=== PATIENT | female | born 1965 | race Caucasian/White ===

== ENCOUNTER → 2023-07-20 14:20 | Outpatient (BNVA) | payer MEDICARE, MEDICAID, SELFPAY | PROVIDERS: PCP Nurse Practitioner; Visit Provider Nurse Practitioner | DX: M54.9 Dorsalgia, unspecified (principal); G89.29 Other chronic pain; E27.1 Primary adrenocortical insufficiency; E11.9 Type 2 diabetes mellitus without complications; R10.9 Unspecified abdominal pain | CPT/HCPCS: 80053; 80061; 82150; 83036; 83690; 83721; 85025 ==

== ENCOUNTER → 2023-08-05 14:53 | Outpatient (BNVA) | payer MEDICARE, MEDICAID, SELFPAY | PROVIDERS: PCP Nurse Practitioner; Referring Provider Family Medicine; Visit Provider Specialist | DX: G43.711 Chronic migraine without aura, intractable, with status migrainosus (principal) | CPT/HCPCS: 99204 ==

== ENCOUNTER 2023-08-06 10:09 | Outpatient (CLI) | payer MEDICARE, MEDICAID, SELFPAY ==
--- NOTE | 2023-08-06 10:45 | US_ITS ---
WS: [id number] Complete ABDOMINAL ULTRASOUND HISTORY: R10.9 - Unspecified abdominal pain COMPARISON: None available. Liver: 13.7 cm in length. Normal liver with mild hepatic steatosis. No mass. Portal Vein: Normal hepatopetal flow with monophasic waveform. Gallbladder: Status post cholecystectomy. CBD: 0.8 cm Pancreas: Normal size and echogenicity. Right kidney: 10.3 cm x 5.2 x 4.8 cm. Cortex: 1.0 cm. Normal size and echogenicity. No hydronephrosis or mass. Left kidney: 11.4 cm x 4.1 cm x 4.2 cm. Cortex: 1.1 cm. Normal size and echogenicity. No hydronephrosis or mass. Spleen: Normal. Aorta and IVC: Unremarkable abdominal aorta and IVC. Impression: 1. Prior cholecystectomy. 2. Mild hepatic steatosis without hepatomegaly. 3. No bile duct dilatation.
== END 2023-08-06 10:10 | disposition home or self-care (01) ==
LOC: RAD 10:10
PROVIDERS: PCP Nurse Practitioner; Visit Provider Nurse Practitioner
DX: R10.9 Unspecified abdominal pain (principal); K76.0 Fatty (change of) liver, not elsewhere classified
CPT/HCPCS: 76700

== ENCOUNTER → 2023-08-17 13:33 | Outpatient (BNVA) | payer MEDICARE, MEDICAID, SELFPAY | PROVIDERS: PCP Nurse Practitioner; Visit Provider Nurse Practitioner | DX: R06.00 Dyspnea, unspecified (principal); E11.9 Type 2 diabetes mellitus without complications; K76.6 Portal hypertension; M79.671 Pain in right foot; J44.9 Chronic obstructive pulmonary disease, unspecified | CPT/HCPCS: 71046; 73630 ==

== ENCOUNTER → 2023-10-21 08:00 | Outpatient (BNVA) | payer MEDICARE, MEDICAID, SELFPAY | PROVIDERS: PCP Nurse Practitioner; Visit Provider Specialist | DX: G43.711 Chronic migraine without aura, intractable, with status migrainosus (principal) | CPT/HCPCS: 64615 ==

== ENCOUNTER → 2023-10-25 11:43 | Outpatient (BNVA) | payer MEDICARE, MEDICAID, SELFPAY | PROVIDERS: PCP Nurse Practitioner; Visit Provider Nurse Practitioner | DX: R55 Syncope and collapse (principal); E27.1 Primary adrenocortical insufficiency; R07.81 Pleurodynia; M25.551 Pain in right hip; M54.6 Pain in thoracic spine; M54.2 Cervicalgia; E11.9 Type 2 diabetes mellitus without complications | CPT/HCPCS: 83036 ==

== ENCOUNTER → 2023-10-27 11:08 | Outpatient (BNVA) | payer OTHER, MEDICAID, SELFPAY | PROVIDERS: PCP Nurse Practitioner; Referring Provider Nurse Practitioner; Visit Provider Nurse Practitioner | DX: S22.31XA Fracture of one rib, right side, initial encounter for closed fracture (principal); W19.XXXA Unspecified fall, initial encounter; M47.892 Other spondylosis, cervical region; R07.81 Pleurodynia; M25.551 Pain in right hip; M54.2 Cervicalgia | CPT/HCPCS: 71100; 72040; 72070; 73502 ==

== ENCOUNTER → 2023-10-28 10:49 | Outpatient (BNVA) | payer OTHER, MEDICAID, SELFPAY | PROVIDERS: PCP Nurse Practitioner; Visit Provider Internal Medicine | DX: E03.9 Hypothyroidism, unspecified (principal); E10.9 Type 1 diabetes mellitus without complications; E27.40 Unspecified adrenocortical insufficiency; Z79.4 Long term (current) use of insulin; Z79.890 Hormone replacement therapy; Z79.85 Long-term (current) use of injectable non-insulin antidiabetic drugs; R06.02 Shortness of breath; J45.909 Unspecified asthma, uncomplicated | CPT/HCPCS: 99204 ==

== ENCOUNTER → 2023-11-02 11:50 | Outpatient (BNVA) | payer OTHER, MEDICAID, SELFPAY | PROVIDERS: PCP Nurse Practitioner; Referring Provider Nurse Practitioner; Visit Provider Nurse Practitioner | DX: E10.9 Type 1 diabetes mellitus without complications (principal) | CPT/HCPCS: 83036 ==

== ENCOUNTER 2023-11-12 10:16 | Outpatient (CLI) | payer MEDICARE, MEDICAID, SELFPAY ==
--- NOTE | 2023-11-12 10:30 | CT_ITS ---
WS: [id number] CT HEAD NONCONTRAST HISTORY: S09.90XA - Unspecified injury of head, initial encounter TECHNIQUE: Contiguous axial imaging performed through the brain in 2.5 mm imaging. Bone and soft tiss ue windows. Sagittal and coronal reformats reviewed. All CT scans at [facility] use at least one of these dose optimization techniques: automated exposure control; mA and/or kV adjustment per pa tient size (includes targeted exams where dose is matched to clinical indication); or iterative recon struction. DLP: 1058.38 mGy.cm COMPARISON: None available. No acute intracranial hemorrhage, midline shift or mass effect. Very minimal bifrontal atrophy. Scattered minimal small vessel ischemic disease. No prior infarcts. N o hemorrhage. Ventricles: Normal size with no hydrocephalus. No intra displacement the cerebellar tonsils. Paranasal sinuses: Mild mucoperiosteal thickening in the ethmoid and maxillary sinuses. No air-fluid levels. Mastoid air cells: Well pneumatized. Calvarium and scalp: Skull is intact with no soft tissue edema or swelling. IMPRESSION: 1. No acute intracranial hemorrhage or edema. 2. Minimal bifrontal lobe atrophy and small vessel ischemic disease. 3. Mild ethmoid and maxillary sinus disease.
== END 2023-11-12 10:17 | disposition home or self-care (01) ==
LOC: RAD 10:16
PROVIDERS: PCP Nurse Practitioner; Visit Provider Nurse Practitioner
DX: S09.90XA Unspecified injury of head, initial encounter (principal); X58.XXXA Exposure to other specified factors, initial encounter; J32.2 Chronic ethmoidal sinusitis; J32.0 Chronic maxillary sinusitis
CPT/HCPCS: 70450

== ENCOUNTER 2023-12-03 14:15 | Outpatient (CLI) | payer MEDICARE, MEDICAID, SELFPAY ==
--- NOTE | 2023-12-03 14:30 | XR_ITS ---
WS: [id number] DEXA (DUAL ENERGY X-RAY ABSORPTIOMETRY) Bone mineral density was performed using a [employer] machine. HISTORY: E10.9 - Type 1 diabetes mellitus without complications COMPARISON: None available. Left forearm BMD: 0.870 g/cm2. T score: -0.1 Z score: 0.5 RIGHT forearm BMD: 0.870 g/cm2. T score: -0.1 Z score: 0.5 Total hip BMD: Left: 0.999 (g/cm2). T score: -0.1 (no units) Z score: 0.6 (no units) 10 year probability of a major osteoporotic fracture is 15.5%. IMPRESSION: NORMAL BONE MINERAL DENSITY based upon the WHO classification for females.
== END 2023-12-03 14:16 | disposition home or self-care (01) ==
LOC: RAD 14:15
PROVIDERS: PCP Nurse Practitioner; Visit Provider Nurse Practitioner
DX: E10.9 Type 1 diabetes mellitus without complications (principal); Z13.820 Encounter for screening for osteoporosis
CPT/HCPCS: 77080

== ENCOUNTER → 2023-12-09 12:42 | Outpatient (BNVA) | payer MEDICARE, MEDICAID, SELFPAY | PROVIDERS: PCP Nurse Practitioner; Visit Provider Orthopaedic Surgery | DX: M54.2 Cervicalgia (principal); M54.50 Low back pain, unspecified; M47.22 Other spondylosis with radiculopathy, cervical region | CPT/HCPCS: 72050; 72110; 99204 ==

== ENCOUNTER 2023-12-24 11:53 | Outpatient (CLI) | payer MEDICARE, MEDICAID, SELFPAY ==
--- NOTE | 2023-12-24 12:00 | CT_ITS ---
WS: [id number] CT RIGHT HIP, NONCONTRAST. HISTORY: M25.551 - Pain in right hip Technique: All CT scans at [facility] use at least one of these dose optimization techniques: automated exposure control; mA and/or kV adjustment per patient size (includes targeted exams where dose is matched to clinical indication); or iterative reconstruction. DLP: 333.77 mGy.cm COMPARISON: None available. Fusion hardware across the RIGHT SI joint. The more posterior screw may not be embedded within the sa susi. There is no acute fracture or dislocation. No soft tissue abnormality or hematoma. No muscle atrophy. No sclerotic changes to suggest a healing fracture. There is mild osteophytic ridging around the norma tabulum and femoral head from arthritis. IMPRESSION: 1. Mild osteoarthritis at the RIGHT hip. 2. No fracture or healed fracture.
== END 2023-12-24 11:54 | disposition home or self-care (01) ==
LOC: RAD 11:54
PROVIDERS: PCP Nurse Practitioner; Visit Provider Nurse Practitioner
DX: M16.11 Unilateral primary osteoarthritis, right hip (principal); M25.551 Pain in right hip
CPT/HCPCS: 73700

== ENCOUNTER → 2023-12-27 09:54 | Outpatient (BNVA) | payer MEDICARE, MEDICAID, SELFPAY | PROVIDERS: PCP Nurse Practitioner; Visit Provider Nurse Practitioner | DX: E03.9 Hypothyroidism, unspecified (principal) | CPT/HCPCS: 84244; 84439; 84443; 99214 ==

== ENCOUNTER 2024-01-07 11:31 | Outpatient (CLI) | payer MEDICARE, MEDICAID, SELFPAY ==
--- NOTE | 2024-01-07 12:15 | MR_ITS ---
WS: [email or web address] MRI CERVICAL SPINE NONCONTRAST TECHNIQUE: Sagittal T1, T2 and STIR imaging. Axial T2, gradient, and fiesta imaging. CLINICAL INFORMATION: cervical pain COMPARISON: None. FINDINGS: Straightening of the normal cervical lordosis. Disc bulging worse at C5-C6 and C6-C7. Cord signal is normal. C2-C3: Normal. C3-C4: Minimal disc bulging. Moderate facet arthropathy. Spinal canal and foramen are patent. C4-C5: Disc osteophytic ridging. Moderate LEFT and no significant RIGHT foraminal narrowing. Spinal c anal is patent. C5-C6: Central disc osteophyte protrusion with mild central canal stenosis. Moderate bilateral bony f oraminal narrowing. Moderate facet arthropathy. C6-C7: Shallow central disc protrusion. Slight contact of the cervical cord. Mild central canal steno sis. Mild to moderate bilateral bony foraminal narrowing. Mild facet arthropathy. C7-T1: RIGHT paracentral disc protrusion with slight contact of the cervical cord. Spinal canal is pa tent. Foramen are patent. Visualized brain stem structures: Normal. Prevertebral soft tissues: Normal. IMPRESSION: 1. Straightening of the normal cervical lordosis. Cord signal is normal. 2. Mild central canal stenosis C5-C6 and C6-C7 with small disc protrusions and slight contact of the cervical cord. 3. Multilevel moderate bony foraminal narrowing worse at LEFT C4-5, bilateral C5-C6 worse on the RIG HT, and bilateral C6-7. 4. Moderate asymmetric facet arthropathy RIGHT C3-4.
--- NOTE | 2024-01-07 13:00 | MR_ITS ---
WS: [email or web address] MRI LUMBAR SPINE NONCONTRAST TECHNIQUE: Sagittal T1, T2 and STIR imaging. Axial T1 and T2 imaging. CLINICAL INFORMATION: back pain COMPARISON: None. FINDINGS: Mild lumbar curve. No acute compression. Prior postoperative changes L3-L5 pedicle screw fixation wit h interbody fusion. Additional interbody fusion at L4-L5 and L5-S1. Anterior fixation at L2-3. RIGHT iliac fixation. L1-L2: Mild annular bulging. Mild facet arthropathy. Mild RIGHT foraminal narrowing. L2-L3: Postoperative changes. Spinal canal and foramen are patent. Mild facet arthropathy. L3-L4: Postoperative changes. Mild RIGHT bony foraminal narrowing. LEFT foramen is patent. Spinal can al is patent with laminectomy defects. L4-L5: Interbody fusion. Spinal canal has been decompressed. Foramina are patent. L5-S1: Interbody fusion. Spinal canal and foramen are patent. Laminectomy defects. Visualized pelvic bony structures: Normal. Paravertebral soft tissues: Normal. IMPRESSION: 1. Postoperative changes described above. 2. Mild annular bulging L1-2 with slight narrowing of the subarticular recess bilaterally. Mild RIGH T foraminal narrowing at this level. 3. Mild RIGHT L3-4 bony foraminal narrowing. 4. Spinal canal and foramen are otherwise patent. 5. Laminectomy defects L3-L5. 6. RIGHT sacroiliac fixation.
== END 2024-01-07 11:32 | disposition home or self-care (01) ==
LOC: RAD 11:31
PROVIDERS: PCP Nurse Practitioner; Visit Provider Orthopaedic Surgery
DX: M48.02 Spinal stenosis, cervical region (principal); M50.23 Other cervical disc displacement, cervicothoracic region; M47.812 Spondylosis without myelopathy or radiculopathy, cervical region
CPT/HCPCS: 72141; 72148

== ENCOUNTER → 2024-01-20 12:30 | Outpatient (BNVA) | payer MEDICARE, MEDICAID, SELFPAY | PROVIDERS: PCP Nurse Practitioner; Visit Provider Specialist | DX: G43.711 Chronic migraine without aura, intractable, with status migrainosus (principal); M54.9 Dorsalgia, unspecified; M48.062 Spinal stenosis, lumbar region with neurogenic claudication | CPT/HCPCS: 36415; 64615; 80053; 81001; 85025; 87077; 87086; 87186; 99214 ==

== ENCOUNTER → 2024-01-31 11:53 | Outpatient (BNVA) | payer OTHER, MEDICAID, SELFPAY | PROVIDERS: PCP Nurse Practitioner; Visit Provider Family Medicine | DX: Z01.818 Encounter for other preprocedural examination (principal); Z79.899 Other long term (current) drug therapy | CPT/HCPCS: 81003; 87077; 87086; 87184; 93005 ==

== ENCOUNTER 2024-02-23 15:53 | Inpatient (IN) | payer MEDICARE, MEDICAID, SELFPAY ==
[2024-02-23] VITALS (20 sets, daily range): BP systolic 85–132; BP diastolic 54–82; PULSE 71–100; RESP 14–23; TEMP 36.6–37.1; O2SAT 95–100
--- NOTE | 2024-02-23 | XR_ITS ---
WS: [id number] Exam: XR lumbar spine 2-3V* [id number] Date/Time of Exam: 02/23/2024 12:00 AM Reason For Exam: SAI PICS images of the lumbar spine in the AP and lateral projections are obtained for intraoperative purpose s.
[2024-02-23] MEDS: sodium chloride 0.9% 1,000 ML 30 ML IV (09:47)
--- NOTE | 2024-02-23 09:47 | PICC.NOTE ---
Referred to vascular access nurse for IV start due to history of poor access. 20 gauge IV started to left forearm using ultrasound guidance. Pt noted to have very small vessels. Unable to get lab draw from IV start. Site flushes without difficulty. IVF infusing without difficulty. Lab draw performed to left AC using butterfly and ultrasound guidance. Pt tolerated fair.
[2024-02-23 10:04] LABS: Glucose Point of Care 94 mg/dL (70-110)
[2024-02-23] MEDS: midazolam 1 mg/mL INJ 2 mL 2 MG IVP (10:47)
[2024-02-23] MEDS: hydrocortisone 100 mg/2 mL SDV IVP (11:12)
--- NOTE | 2024-02-23 11:16 | W.PM.OPSUD ---
Surgery/Procedure H&P Update DATE OF PROCEDURE: February 23, 2024 DATE H&P PERFORMED: 01/30/24 H&P UPDATE INFORMATION: I have reviewed H&P completed within last 30 days, I have examined patient prior to procedure and No changes to prior documentation PREOP DIAGNOSIS: Nonunion lumbar spine PLANNED PROCEDURE: Operation Date: 02/23/24 10:30 Proposed Procedures p Spinal Fusion(Not Applicable) - DO monty Benton Lumbopelvic Fixation(Not Applicable) - DO monty Benton Sacroiliac Joint Fusion SI Joint Fusion(Not Applicable) - DO monty Benton Lumbar Spine Decompression Lumbar Decompression(Not Applicable) - Munir Chan DO
[2024-02-23] MEDS: ceFAZolin 2,000 MG in sodium chloride 0.9% (plus) 50 ML 100 MG IV ×2 (11:24→17:53)
[2024-02-23] MEDS: vancomycin 1,000 MG SDV 1000 MG XX (12:24)
[2024-02-23] MEDS: lidocaine-epi 1% PF 1:200,000 30 mL SDV INJECTION (12:24)
[2024-02-23] MEDS: heparin, porcine 1,000 unit/mL INJ 10 mL 10000 UNIT IRRIGATION (12:25)
--- NOTE | 2024-02-23 15:12 | PM.OP ---
Operative Report Date of procedure: February 23, 2024 Pre-op diagnosis: Nonunion lumbar fusion Post-op diagnosis: same Procedure done: 1. L2- pelvis posterior fusion 2. L2-S1 instrumentation posterior 3. Lumbopelvic instrumentation fixation 4. Left open sacroiliac fusion 5. Use of computer navigation stereotactic 6. Bone marrow aspirate from right iliac crest through separate incision 7. Use of allograft 8. Revision spine surgery Surgeon: Munir Chan DO Estimated blood loss (mL): 200 Procedure: 1. L2- pelvis posterior fusion 2. L2-S1 instrumentation posterior 3. Lumbopelvic instrumentation fixation 4. Left open sacroiliac fusion 5. Use of computer navigation stereotactic 6. Bone marrow aspirate from right iliac crest through separate incision 7. Use of allograft 8. Revision spine surgery Patient is brought the operative suite after going anesthesia was placed in the prone position. Neuromonitoring was done throughout the entire case. Once in the prone position all areas impingement well-padded. Patient then prepped draped normal sterile fashion. Skin incision was made from L2 to the pelvis. Previous skin incision was used. Subperiosteal dissection was made out to the transverse processes of L2 to the sacral ala. Being careful from L3-S1 of previous laminectomy sites. Previous hardware was identified from L2-L4. The screw caps were removed as were the rods. Once dissection was made then the attention was brought to the bone marrow aspirate. This was done going through the fascia and a separate incision on the right iliac crest. The regenerative bone marrow aspiration kit was used and 10 cc of bone marrow aspirate were used. Next attention was brought to doing the computer navigation. This was done by point 2 pins in the right iliac crest. The fiducial was attached and the C-arm was brought in from the patient information from serum was loaded through the fiducial into the computer and later used to place the pedicle screws. Pedicle screws were then placed from L5-S1. This was done by using the gearshift probe linked to computer navigation. The next step is just using the pedicle feeler and then using the computer navigated screw screws were placed. This was done at L5 bilaterally (however the screw on the right could not get good purchase and was removed at the end the case) and on the bilaterally S1. Next attention was brought to placing the iliac screws. This was done by using the gearshift probe to go through the sacrum into the ala across the SI joint and into the iliac crest. This was done bilaterally. Gearshift probe linked. Navigation was used first followed by the pedicle feeler followed by the tap followed by placing the screw using the computer navigation. An 80mm 9.5 millimeter screws from Affymax was placed on the left side and a 70 mm screw was placed in the right side working around the previous SI joint fusion on the right side.. Next tension was brought to placing the right open SI joint fusion. This was done by visualizing the SI joint and passing the screw across the using the navigated gearshift probe. And then using pedicle feeler followed by placing a pin followed by using the drill. Then the bone graft was packed into the SI joint and then the SI joint fusion screw was placed across the sacrum ala and and across the SI joint into the iliac crest. This is only done on the left side since the left side was already fused. Next tension was brought to placing the rods. This was done from L2 to the iliac screw bilaterally. Screw caps were then placed at L2-S1 bilaterally. The right L4 screw Was stripped and we were able to place the cement down. And then attached to the iliac screws to complete the lumbopelvic fixation. AP lateral fluoroscopy ensured that the hardware was in good position. Wounds were irrigated. And then the transverse processes were decorticated bilaterally. Then the ostial amp bone graft was then packed into the lateral gutters bilaterally. Vancomycin powder was placed deep drain was placed and wound was closed in layered fashion with 0 Vicryl 2-0 Vicryl and Monocryl suture. Sterile dressings were applied patient transferred to the PACU in stable condition.
[2024-02-23] MEDS: HYDROmorphone 1 mg/mL INJ 1 mL 0.5 MG IVP (15:46)
--- OUTSIDE RECORDS SUMMARY | 2024-02-23 16:01 | XMS_ITS ---
Author Name Javon Hall Address [address] [place] [id number] Organization Unknown Address [address] [place] [id number] ALLERGIES AND ADVERSE REACTIONS No information ASSESSMENT No information CHIEF COMPLAINT No information Vital Signs Bpsitting Date Temperature Weight Height Spo2 Respiration Bmi Ti merecorded Pulse 124/83 023 10:20:0 0 98.00 168,0 5,9 97 18 24.81 10:27:00 100 OBJECTIVE DATA No information PHYSICAL EXAMINATION No information TREATMENT PLAN No information PROBLEMS No information RESULTS No information REVIEW OF SYSTEMS No information SUBJECTIVE DATA No information MEDICATIONS No information
--- OUTSIDE RECORDS SUMMARY | 2024-02-23 16:02 | XMS_ITS | Patient Health Record ---
Author Name Unknown Organization [facility] Address [address], [place] [id number] Care Team Providers Care Face Man Name Role Phone Neda Donis Primary Care Provider Unavailab rubi Renner MD, Jose David Unavailable [phone] Jeannie Rehman Unavailable [phone] ALLERGIES No Known Allergies RESULTS Component Value Reference Range Notes Urine tox screen / MS if ind icated Reviewed date:09/06/2023 10:09:43 AM Interpretation:Consistent Performing Lab: Notes/Report: Consistent REASON FOR REFERRAL Reason Chronic back pain Diagnosis 1 Dorsalgia, unspecifi ed (M54.9) Diagnosis 2 Other chronic pain ( G89.29) Referring Provider First Name Neda Referring Provider Last Name Licha Referring Provider Speciality Nurse Giuliana dollr Referred Organization [facility] Referred Provider Jose David Renner Referred Address [address] [place], [id number], Referred Provider Specialty Pain Managem ent General Notes Yocasta Hansen 11:28:03 AM >Sent for insurance verification., Yocasta Hansen 08/03/2023 01:52:40 PM >Subscriber not in service. Will mail letter tomorrow. Referral Priority Routine Reason Sleep Study (94330)/ CPAP Titration Study (20091) as appropriate Diagnosis 1 Hypersomnia, unspeci fied (G47.10) Referral Organization [facility] Referring Provider First Name Jose David Referring Provider Last Name Jud Referring Provider Speciality Pain Manag ement Referred Provider Lab, Sleep General Notes Diamond Kent 2023 11:11:25 AM > referral faxed, Diamond Kent 11/15/2023 11:43:20 AM > per D[facility] at [facility] Sleep Lab - patient is scheduled as above Referral Priority Routine Referral Appointment Date 01/26/2024 MEDICATIONS Medication SIG (Take, Route, Frequency, Duration) Notes Start Date End Date Status Naloxone Hydrochloride 4 mg/0.1 mL as directed intranasally once 11/25/2023 Active Morphine Sulfate 15 mg 1 tab orally Q4H prn pain (max 4/day; hold within 4H of planned sleep) for 28 days Do not fill prior to 01/26/24. ICD-10: G89.29 12/16/2023 Active nadolol 40 mg 1 tab(s) orally once a day for 30 day(s) Active spironolactone 25 mg 1 tab(s) orally onc e a day for 30 day(s) Active promethazine 25 mg 1 tab(s) orally ever y 12 hours, as needed Active [place]-3 1000 mg 2 cap(s) orally 2 times a day (with meals) Active montelukast 10 mg 1 tab(s) orally once a day for 30 day(s) Active hydrocortisone 10 mg 2 1/2 tab(s) orally as directed Active gabapentin 600 mg 1 tab orally Q8H Active Morphine Sulfate 15 mg 1 tab orally Q4H prn pain (max 4/day; hold within 4H of planned sleep) for 28 days Do not fill prior to 12/30/23. ICD-10: G89.29 12/16/2023 Active esomeprazole 40 mg 1 cap(s) orally once a day for 30 day(s) Active DULoxetine 60 mg 1 cap(s) orally once a day for 30 day(s) Active atorvastatin 40 mg 1 tab(s) orally once a day for 30 day(s) Active zolpidem 10 mg 1 tab(s) orally once a day (at bedtime) Active amLODIPine 5 mg 1 tab(s) orally once a day for 30 day(s) Active venlafaxine 75 mg 1 cap(s) orally once a day for 30 day(s) Active Movantik 25 mg 1 tab orally Q24H pr n constipation (1H before or 2H after first meal of day) for 28 days Active fenofibrate 54 mg 1 tab(s) orally once a day for 30 day(s) Active estradiol 1 mg 1 tab(s) orally once a day for 30 day(s) Active amitriptyline 50 mg 1 tab(s) orally once a day (at bedtime) for 30 day(s) Active topiramate 50 mg 1 tab(s) orally 2 times a day for 30 day(s) Active Advil PM 38 mg-200 mg 2 tab(s) orally on ce a day (at bedtime) Active tiZANidine 4 mg 1 tab orally Q8H prn spasm Active telmisartan 80 mg 1 tab(s) orally once a day for 30 day(s) Active Synthroid 50 mcg (0.05 mg) 1 tab(s) orally once a day for 30 day(s) Active SOCIAL HISTORY Tobacco Use: Social History Observation Description Date Details (start date - stop date) Never Smoker NA - NA Sex Assigned At : Social History Observation Description Sex Assigned At Unknown alcohol Question Answer Notes Did you have a drink containing alcohol in the p ast year? 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) Active confirmed High ris k drug monitoring status (738082470) Problem Hypersomnia, unspecified (G47.10) Active confirmed Hypersomnia (02678795) Problem Other chronic pain (G89.29) Active confirmed Chronic pain (52770644) Problem Dorsalgia, unspecified (M54.9) Active confirmed Backache (453760699) Problem Postlaminectomy syndrome, not elsewhere classified (M96.1) Active confirmed Post-lami nectom y syndrome (82379489) Problem Other retirement (current) drug therapy (Z79.899) Active confirmed Long-term current use of drug therapy (958334149) Problem Drug induced constipation (K59.03) Active confirmed Drug-induced constipation (41740530) Problem Vertebrogenic low back pain (M54.51) Active confirmed Low back pain (finding) (039569962) VITAL SIGNS Temperature 97.5 degrees Fahrenheit 12/16/2023 Blood pressure diastolic 84 mm Hg 12/16/2023 Oximetry 95 % 12/16/2023 Height 69 in 12/16/2023 Blood pressure systolic 112 mm Hg 12/16/2023 Weight 151.2 lbs 12/16/2023 BMI 22.33 kg/m2 12/16/2023 Encounters Encounter Location Date Provider Diagnosis [facility], [address] [id number] 09/06/2023 Jeannie Anderson Vertebrogenic low ba ck pain M54.51 ; Postlaminectomy syndrome, not elsewhere classified M96.1 ; Sacroiliitis, not elsewhere classified M46.1 ; Hypersomnia, unspecified G47.10 and 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 Z79.899 [facility], [address] [id number] 11/02/2023 Jose David Renner Vertebrogenic low ba ck pain M54.51 ; Other chronic pain G89.29 ; Postlaminectomy syndrome, not elsewhere classified M96.1 ; Hypersomnia, unspecified G47.10 and correction (current) use of opiate analgesic Z79.891 [facility], [address] [id number] 11/25/2023 Jeannie Anderson Vertebrogenic low ba ck pain M54.51 ; Other chronic pain G89.29 ; Postlaminectomy syndrome, not elsewhere classified M96.1 ; Drug induced constipation K59.03 ; Hypersomnia, unspecified G47.10 and correction (current) use of opiate analgesic Z79.891 [facility], [address] [id number] 12/16/2023 Jose David Renner Vertebrogenic low ba ck pain M54.51 ; Other chronic pain G89.29 ; Postlaminectomy syndrome, not elsewhere classified M96.1 ; Drug induced constipation K59.03 ; Hypersomnia, unspecified G47.10 and correction (current) use of opiate analgesic Z79.891 [facility], [address] [id number] 02/17/2024 Jose David Renner ASSESSMENTS Encounter Date Diagnosis Assessment Notes Treatment Notes Treatment Clinical Notes 09/06/2023 Postlaminectomy syndrome, not elsewhere classified (ICD-10 - M96.1) 09/06/2023 Vertebrogenic low back pain (ICD-10 - M54.51) Proceed with scheduled PCP appointment later today for evaluation of injuries related to acute injury over the weekend. Plan to obtain LSP imaging reports from [place]. Consider treatment options pending review of those reports and evaluation by Dr. Renner. 11/02/2023 Other chronic pain (ICD-10 - G89.29) Oral opioid therapy via other providers with history of benefit. Plan to resume oral opioid therapy at today's visit. 11/02/2023 Vertebrogenic low back pain (ICD-10 - M54.51) Chronic axial lumbosacral spine pain. 11/25/2023 Vertebrogenic low back pain (ICD-10 - M54.51) Chronic axial lumbosacral spine pain. 12/16/2023 Vertebrogenic low back pain (ICD-10 - M54.51) Chronic axial lumbosacral spine pain. Patient reports that Dr. Chan ordered an MRI for her cervical and lumbar spinal regions, scheduled for 01/07/24. Do not anticipate offering patient any fluoroscope guided minimally invasive interventional spine treatment via this facility. 12/16/2023 Other chronic pain (ICD-10 - G89.29) Patient reports symptom improvement with use of pain medication, however, prescribed number of doses do not meet her overall daily pain medicine requirements. Plan to continue oral opioid medication management with a quantity titration at today's visit. 12/16/2023 Postlaminectomy syndrome, not elsewhere classified (ICD-10 - M96.1) SCS systems via other provider(s) x 2 trialed in past by patient and they were subsequently removed. Patient reports that a MRI of the lumbar spine is scheduled for 01/09/24 (ordered by Dr. Chan). 11/25/2023 Other chronic pain (ICD-10 - G89.29) Patient reports symptom improvement with use of pain medication. Plan to continue oral opioid medication management. 11/25/2023 Postlaminectomy syndrome, not elsewhere classified (ICD-10 - M96.1) SCS systems x 2 trialed in past by patient and subsequently removed. 11/02/2023 Postlaminectomy syndrome, not elsewhere classified (ICD-10 - M96.1) DCS systems x 2 trialed in past by patient and subsequently removed. 09/06/2023 Sacroiliitis, not elsewhere classified (ICD-10 - M46.1) 09/06/2023 Hypersomnia, unspecified (ICD-10 - G47.10) Patient has a sleep disorder - hypersomnia (and history of insomnia). Consider a sleep study. 11/25/2023 Drug induced constipation (ICD-10 - K59.03) Patient reports constipation even after trying OTC stool softeners, Dulcolax tablets, and Linzess. Plan Movantik trial. 11/02/2023 Hypersomnia, unspecified (ICD-10 - G47.10) Patient has described her sleep as poor with complaints of frequent awakenings, non-refreshing sleep, morning headaches, and difficulty in sleeping. Patient has had a remote sleep study per updated patient report. [place] Sleepiness Scale: 15. Patient has a sleep disorder with hypersomnia. Plan a sleep study. Plan to restrict opioid usage in relation to sleep: patient has verbalized understanding to hold short-acting opioids within four hours of planned sleep. Patient has been counseled on the risks of sleep apnea (if present), with or without opioid and / or other sedative usage, and the patient verbalized understanding and acceptance of the increased risk (sleep apnea, respiratory depression, ) with opioid and / or sedative substance usage. Patient has been counseled that synergistic risk occurs with concomitant opioid (such as hydrocodone or morphine) and sedative (such as zolpidem) usage. Patient counseled that zolpidem is potentially harmful in the setting of undiagnosed and untreated sleep apnea (patient has reported taking zolpidem for years; patient informed that zolpidem is not indicated for chronic use). Patient has been counseled to hold opioid and / or sedative substances prior to planned sleep or dangerous activities and patient verbalized understanding that noncompliance would be at patient's increased risk. 12/16/2023 Drug induced constipation (ICD-10 - K59.03) Patient has reported constipation even after trying OTC stool softeners, Dulcolax tablets, and Linzess. Movantik trial was favorable. Plan to continue. Suggested patient trial OTC Mg Citrate as needed to supplement Movantik for her constipation. 12/16/2023 Hypersomnia, unspecified (ICD-10 - G47.10) Patient has described her sleep as poor with complaints of frequent awakenings, non-refreshing sleep, morning headaches, and difficulty in sleeping. Patient has had a remote sleep study per prior updated patient report. [place] Sleepiness Scale = 15. Patient has a sleep disorder with hypersomnia. Plan a sleep study (scheduled for 01/26/24). Plan to continue to restrict opioid usage in relation to sleep for safety concerns: patient has verbalized understanding to hold short-acting opioids within four hours of planned sleep. Have also recommended discontinuation of zolpidem (recommendation was not followed by patient). 11/25/2023 Hypersomnia, unspecified (ICD-10 - G47.10) Patient has described her sleep as poor with complaints of frequent awakenings, non-refreshing sleep, morning headaches, and difficulty in sleeping. Patient has had a remote sleep study per prior updated patient report. [place] Sleepiness Scale = 15. Patient has a sleep disorder with hypersomnia. Plan a sleep study (scheduled for 01/26/24). Plan to continue to restrict opioid usage in relation to sleep for safety concerns: patient has verbalized understanding to hold short-acting opioids within four hours of planned sleep. Have also recommended discontinuation of zolpidem (recommendation was not followed by patient). 09/06/2023 Other retirement (current) drug therapy (ICD-10 - Z79.899) Patient was given a copy of the Treatment Agreement, signed by patient on 08/15/23. 2022 opioid (OUD) risk tool score = 1. This places the patient in the low risk category. Plan urine toxicology screen today in anticipation of possibly starting opioid therapy at future visit as well as to assess for any prescribed, unprescribed, and / or illicit controlled substance(s). 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 Patient has had opportunity to read the Guide and ask questions pertaining to the Guide. Patient has been advised on 11/02/23 that any suspected patient misuse, abuse, or diversion of controlled substances (i.e. opioids/narcotics/pa in killers) WILL result in dissolution of treatment from this clinic. Patients adhering to the concepts contained within the patient's Treatment Agreement will be protected from such termination of care. Patient was given a copy of the Treatment Agreement she signed on 08/15/23. Patient signed an opioid consent form on 11/02/23. 2022 opioid (OUD) risk tool score = 1. This places the patient in the low risk category. 11/25/2023 correction (current) use of opiate analgesic (ICD-10 - Z79.891) Patient has received the Opioid Analgesic [facility] Patient Counseling Guide. Patient has had opportunity to read the Guide and ask questions pertaining to the Guide. Patient was given a copy of the Treatment Agreement she signed on 08/15/23. Patient signed an opioid consent form on 11/02/23. Patient has accepted a prescription for Narcan nasal spray. 2022 opioid (OUD) risk tool score = 1. This places the patient in the low risk category. 12/16/2023 correction (current) use of opiate analgesic (ICD-10 - Z79.891) Patient has received the Opioid Analgesic [facility] Patient Counseling Guide. Patient has had opportunity to read the Guide and ask questions pertaining to the Guide. Patient was given a copy of the Treatment Agreement she signed on 08/15/23. Patient signed an opioid consent form on 11/02/23. Patient has accepted a prescription for Narcan nasal spray. 2022 opioid (OUD) risk tool score = 1. This places the patient in the low risk category. 09/06/2023 Other Continue above medications as currently prescribed via another provider. Case reviewed, treatment plan approved, and visit note edited by Dr. Renner. 11/02/2023 Other 11/25/2023 Other Patient is interested in having her CSP worked up. Could consider proceeding with CSP work up pending patient's compliance with her Treatment Agreement. Patient counseled today regarding her pill count. Patient verbalized understanding that future violation of her Treatment Agreement would result in termination of care at this facility. 12/16/2023 Other PLAN OF TREATMENT No Information Insurance Providers Payer Name Payer Address Payer Phone Subscriber Number Group Number Insured Name Patient Relationship to Insured Coverage Start Date Coverage End Date [facility] [address] [place] [address] [id number] [employer] Edwin Gama Self - patient is the insured [place] [employer] [address] [place] [address] [id number] Edwin Gama Self - patient is the insured MEDICAL (GENERAL) HISTORY Medical History History ICD Code Chronic pain Low back pain, lumbar fusion surgery Lumbar spondylosis, disc disease, spinal stenosis and spondylolisthesis Sacroiliitis, sacral fusion surgery Neck pain, BUE numbness Pancreatitis [place] Joaquin's disease Adrenal gland tumors Renal cyst, right, small, as per prior i maging study report Diabetes mellitus Enlarged liver Abdominal pain COVID-19 Hypertension Congestive heart failure (patient report ed) Migraines Breast cancer (1985) Insomnia Sleep disorder, hypersomnia Surgical History Surgery Date(Month/Year) Hysterectomy Cholecystectomy Mastectomy, bilateral (cancer), performe d in [place], [place], 1985 Placement of spinal cord sti mulator (Glopho), performed at [place], [place], 1998 Removal of spinal cord stimu lator, performed at [facility] in [place], [place], performed by Dr. Jarrell Arce, [address] of [address]ial cord st imulator (Glopho), performed at [facility] in [place], [place] performed by Dr. Jarrell Arce, 1999 Removal of spinal cord stimulator, perfo rmed at [facility] in [place], [place], 1999 Removal of ribs, 1st and 2nd, 2010 Lumbar fusion, performed at [facility] in [place], [place], by Dr. Jarrell Arce, 2014 SI fusion, performed at [facility] in [place], [place] by Dr. Jarrell Arce, 2017 Hospitalization History Reason Date(Month/Year) [place] Joaquin's disease COVID-19 with pneumonia (several times) High blood pressure
[2024-02-23] MEDS: ketorolac 30 mg/mL INJ IVP (16:44)
[2024-02-23] MEDS: tizanidine 4 mg Tablet PO ×2 (16:44→23:22)
[2024-02-23] MEDS: lactated ringers 1,000 ML 90 ML IV (16:44)
[2024-02-23] MEDS: hydrocortisone 10 mg Tablet PO ×2 (16:44→23:21)
[2024-02-23] MEDS: morphine IR 15 mg Tablet 30 MG PO ×2 (16:45→23:21)
[2024-02-23] MEDS: docusate sodium 100 mg Capsule PO (17:53)
[2024-02-23] MEDS: topiramate 100 mg Tablet PO (17:53)
[2024-02-23] MEDS: oxyCODONE 10 mg ER (12 HR) Tablet PO (18:09)
[2024-02-23] MEDS: ipratropium-albuterol 3 mL Neb INHALATION (20:47)
[2024-02-23] MEDS: budesonide 0.5 mg/2 mL Neb INHALATION (20:47)
--- NOTE | 2024-02-23 20:52 | PC.NURSE ---
Dr. Chan notified of blood pressure of 90/62 and patient c/o 9/10 pain. Patient received 30 mg Morphine PO at 16:45, 30 mg Toradol IV at 16:45, 10 mg Oxy at 18:00, and 4 mg Zanaflex at 16:45. Doctor ordered to not give any narcotics until patient's blood pressure comes back up to normal. Physician stated that he does not have any specific parameters.
[2024-02-23] MEDS: gabapentin 300 mg Capsule 600 MG PO (20:57)
[2024-02-23] MEDS: trazodone 100 mg Tablet PO (20:57)
[2024-02-23] MEDS: acetaminophen 325 mg Tablet 650 MG PO (21:08)
[2024-02-23] MEDS: ondansetron 2 mg/ML SDV 2 mL 4 MG IVP (21:25)
[2024-02-23] MEDS: zolpidem 5 mg Tablet 10 MG PO (23:55)
[2024-02-24] VITALS (16 sets, daily range): BP systolic 90–109; BP diastolic 59–73; PULSE 69–102; RESP 15–20; TEMP 36.4–36.9; O2SAT 96–99
[2024-02-24] MEDS: ceFAZolin 2,000 MG in sodium chloride 0.9% (plus) 50 ML 100 MG IV ×2 (02:03→11:55)
[2024-02-24] MEDS: lactated ringers 1,000 ML 90 ML IV ×3 (02:03→23:57)
[2024-02-24] MEDS: morphine IR 15 mg Tablet 30 MG PO ×2 (03:36→09:51)
[2024-02-24] MEDS: venlafaxine ER (24HR) 75 mg Capsule PO (06:02)
--- NOTE | 2024-02-24 06:07 | PC.NURSE ---
Pt refused removal of patterson catheter. Pt stated she feels like she will not be able to get up to use the bathroom and would feel more comfortable leaving the patterson in.
[2024-02-24] MEDS: ondansetron 2 mg/ML SDV 2 mL 4 MG IVP (08:03)
[2024-02-24 08:13] LABS: Glucose Point of Care 82 mg/dL (70-110)
--- NOTE | 2024-02-24 08:17 | PM.PN ---
Subjective Subjective: Patient will get up with therapy has nausea. This point in pain blood pressure little soft so we will give her any more pain meds. Vitals/I&O/Wt Last Vital Signs Temp 98.3 F 02/24/24 04:00 Pulse 76 02/24/24 04:00 Resp 18 02/24/24 04:00 BP 93/60 02/24/24 04:00 Pulse Ox 97 02/24/24 04:00 O2 Del Method Nasal Cannula 02/24/24 04:00 O2 Flow Rate 1.5 02/23/24 20:51 02/23/24 02/24/24 02/24/24 22:59 06:59 14:59 Intake Total 1025 / 1075 948.5 / 2023.5 Output Total 800 / 800 375 / 1175 Balance 225 / 275 573.5 / 848.5 Weight last 48 hrs Weight 156 lb 7 oz Weight 152 lb Weight 145 lb Physical Exam Narrative: Sitting in bed drain has turned 75 output. This point we will keep drain in until she is up with therapy and see how that does. Urinary Catheter Management: Price: Cath Placed During This Visit: yes Reason for Continuing Indwelling Catheter: Other Urinary Catheter Date of Insertion: 02/23/24 Urinary Catheter Time of Insertion: 11:40 A&P Assessment and plan (1) Status post lumbar spinal fusion: Postop day 1 posterior spine fusion Up with physical therapy JESUS Price Attestsilvia Medical Necessity Statement*: Pain control Coding Level of Care Code Acute Code for Chg Fwd Diagnoses Status post lumbar spinal fusion Z98.1
[2024-02-24] MEDS: ipratropium-albuterol 3 mL Neb INHALATION ×3 (08:40→21:09)
[2024-02-24] MEDS: budesonide 0.5 mg/2 mL Neb INHALATION ×2 (08:40→21:09)
[2024-02-24] MEDS: lanolin oint 7 gm 1 APPLIC TOPICAL (08:53)
--- NOTE | 2024-02-24 08:53 | PC.PHAR ---
PT DOING BREATHING TREATMENT-WILL RETURN TO ROOM IN 15 MINUTES AT 9:10AM
[2024-02-24] MEDS: ascorbic acid 500 mg Tablet PO (08:54)
[2024-02-24] MEDS: hydrocortisone 10 mg Tablet PO ×2 (08:54→14:10)
[2024-02-24] MEDS: duloxetine 60 mg Capsule PO (08:54)
[2024-02-24] MEDS: atorvastatin 40 mg Tablet PO (08:54)
[2024-02-24] MEDS: levothyroxine 50 mcg Tablet PO (08:54)
[2024-02-24] MEDS: estradiol 1 mg Tablet PO (08:54)
[2024-02-24] MEDS: spironolactone 25 mg Tablet PO (08:54)
[2024-02-24] MEDS: tizanidine 4 mg Tablet PO ×3 (08:55→20:55)
[2024-02-24] MEDS: montelukast sodium 10 mg Tablet PO (08:55)
[2024-02-24] MEDS: losartan 50 mg Tablet 100 MG PO (08:55)
[2024-02-24] MEDS: gabapentin 300 mg Capsule 600 MG PO ×2 (08:55→14:10)
[2024-02-24] MEDS: fluconazole 100 mg Tablet 150 MG PO (08:55)
[2024-02-24] MEDS: topiramate 100 mg Tablet PO ×2 (08:56→18:02)
[2024-02-24] MEDS: FUROsemide 20 mg Tablet PO (08:56)
[2024-02-24] MEDS: amlodipine 5 mg Tablet PO (08:56)
[2024-02-24] MEDS: docusate sodium 100 mg Capsule PO ×2 (08:56→18:02)
[2024-02-24] MEDS: oxyCODONE 10 mg ER (12 HR) Tablet PO (08:56)
[2024-02-24] MEDS: midodrine 5 mg TABLET PO (08:56)
[2024-02-24] MEDS: fluticasone nasal spray 16gm Btl 1 SPRAY INTRANASAL (08:59)
[2024-02-24] MEDS: ketorolac 30 mg/mL INJ IVP ×2 (09:52→18:02)
--- NOTE | 2024-02-24 10:17 | PC.PT ---
Pt is refusing to get up this morning due to pain at 9/10 with even small movements and her BP being low. Pt wants to try again this afternoon and so we will try in the afternoon today.
[2024-02-24 11:30] LABS: Glucose Point of Care 120 mg/dL (70-110)
[2024-02-24] MEDS: sodium chloride 0.9% 500 ML IV (13:38)
--- NOTE | 2024-02-24 15:22 | PM.HP ---
Providers/Chief Complaint Admitting Physician: Munir Chan DO Primary Care Provider: Neda Hurt APN Chief Complaint: M48.062 History of Present Illness Edwin Gama is a 58 year old female with a past medical history of Gianni's disease, diabetes mellitus, COPD, hypertension. Patient typically takes oral hydrocortisone 3 times a day and is also on midodrine as needed. Patient states that her blood pressure is labile. Typically takes amlodipine, Lasix, clonidine and midodrine as as needed medications. She is currently admitted to the hospital for PLIF L2-3 L3-4 L4-5 L5-S1, open SI joint fusion which she underwent yesterday. Patient noted to be mildly hypotensive postprocedure. Review of chart shows blood pressure has been ranging between 85-100 systolic since 8 PM overnight. Medicine service is consulted due to hypotension. Most recently patient's blood pressure is 83/42 mmHg. She has received a 500 cc normal saline bolus. Blood pressure continues to be low at this point in time. Patient reports feeling dizzy. She is noted to be somnolent, though wakes up easily and is able to have a full conversation. Last fingerstick at 120 at 11 AM. Review of chart shows patient has received amlodipine 5 mg gabapentin 600 mg x 2, losartan 100 mg, Lasix 20 mg, midodrine 5 mg at 9 AM. Preoperative labs from January 20, 2024 with hemoglobin of 13.4. Patient states she has been hypotensive after prior surgeries, 1 of these ended up requiring ICU admission. She is uncertain if this was related to addisonian crisis. No fever or chills. Has been receiving cefazolin for perioperative prophylaxis. Review of Systems General: Reports: 10 or more systems reviewed and unremarkable except in HPI and below Const: Denies: fever(s), chills or body aches Eyes: Denies: change in vision, blurry vision or photophobia ENMT: Reports: hoarseness; Denies: throat pain, enlarged tonsils, odynophagia or nasal congestion Card: Denies: chest pain, palpitations, irregular heart rhythm, edema, swelling of feet/ankles, lightheadedness, pre-syncope, dyspnea on exertion or orthopnea Resp: Denies: dyspnea, productive cough, non-productive cough, wheezing, stridor, pain on inspiration, change in phlegm color, hemoptysis or chest congestion GI: Denies: abdominal pain, nausea, vomiting, hematemesis, coffee ground emesis, dysphagia, heartburn, diarrhea, constipation, GI cramping, change in stool character, hematochezia or melena : Denies: flank pain, difficulty voiding, dysuria, urinary frequency, urinary urgency, urinary hesitancy or hematuria Musc: Denies: neck pain, back pain, extremity pain, joint swelling, joint warmth or deformity Neuro: Denies: headache(s), numbness in extremities, weakness in extremities, sensory changes, difficulty walking, frequent falls, dizziness, vertigo, behavioral changes, Slurred speech present or seizure-like activity Psych: Denies: anxiety, depression, suicidal ideation or homicidal ideation Endo: Denies: polyuria, polydipsia, tired all the time, cold intolerance or hot flashes Neo/Lymph: Denies: easy bruising or easy bleeding Medications/Allergies Home Medications Medication Instructions Recorded Confirmed Last Taken Type ascorbic acid (vitamin C) 1,000 mg 500 mg PO DAILY 07/20/23 02/22/24 02/01/24 History tablet (Vitamin C With Tiffany Hips) docusate sodium 100 mg capsule 100 mg PO DAILY 07/20/23 02/22/24 02/21/24 History epinephrine 0.125 mg/actuation 2 puff inhalation BID PRN Allergy 07/20/23 02/22/24 Unknown History aerosol inhaler (Primatene Mist) Symptoms midodrine 5 mg tablet 5 mg PO DAILY 08/05/23 02/22/24 02/22/24 History fluticasone propionate 115 2 puff inhalation BID PRN 08/17/23 02/22/24 Unknown History mcg-salmeterol 21 mcg/actuation Shortness Of Breath HFA inhaler (Advair HFA) spironolactone 25 mg tablet 25 mg PO DAILY PRN Edema 08/17/23 02/22/24 Unknown History Oxygen-home #1 ea 08/23/23 02/24/24 Unknown Rx fluticasone propionate 50 1 spray intranasal DAILY #16 grams 09/02/23 02/22/24 Unknown Rx mcg/actuation nasal spray,suspension Bedside commode #1 ea 10/25/23 02/24/24 Unknown Rx Rollinator #1 ea 10/25/23 02/24/24 Unknown Rx Bath mat #1 ea 11/03/23 02/24/24 Unknown Rx Shower rails #1 ea 11/03/23 02/24/24 Unknown Rx Shower chair #1 ea 11/11/23 02/24/24 Unknown Rx pen needle, diabetic 32 gauge x #300 ea 11/16/23 02/24/24 Unknown Rx 5/32 (TRUEplus Pen Needle) venlafaxine 75 mg capsule,extended 75 mg PO QAM 30 days #30 caps 11/16/23 02/22/24 02/22/24 Rx release 24 hr ipratropium 0.5 mg-albuterol 3 mg See Rx Instructions .Route 11/19/23 02/22/24 Unknown Rx (2.5 mg base)/3 mL nebulization .COMPLEX #360 mL soln morphine 15 mg immediate release 15 mg PO Q6H PRN Pain 11/19/23 02/22/24 02/22/24 History tablet blood sugar diagnostic (Infinity #450 ea 11/23/23 02/24/24 Unknown Rx Test strips) blood-glucose meter (Infinity #1 ea 12/03/23 02/24/24 Unknown Rx Meter Kit) lancets 28 gauge (Safety Lancets) #100 ea 12/03/23 02/24/24 Unknown Rx naproxen 375 mg tablet 375 mg PO BID PRN pain #180 tabs 12/08/23 02/22/24 Unknown Rx blood-glucose meter,continuous #1 ea 12/24/23 02/24/24 Unknown Rx (FreeStyle Hilda 3 Reydon) blood sugar diagnostic (Accu-Chek #100 ea 12/27/23 02/24/24 Unknown Rx Guide test strips) blood-glucose meter (Accu-Chek #1 ea 12/27/23 02/24/24 Unknown Rx Guide Glucose Meter) blood-glucose sensor (FreeStyle #1 kit 12/27/23 02/24/24 Unknown Rx Hilda 3 Sensor device) epinephrine 0.3 mg/0.3 mL 0.3 mg (0.3 mL) IM Q4H PRN 12/27/23 02/22/24 Unknown Rx injection, auto-injector (EpiPen) anaphylaxis #2 ea insulin lispro 100 unit/mL 10 unit (0.1 mL) SUBCUT TID #15 mL 12/27/23 02/22/24 02/22/24 Rx subcutaneous pen (Humalog KwikPen (U-100) Insulin) ipratropium bromide 42 mcg (0.06 2 spray intranasal TID #15 mL 12/27/23 02/22/24 Unknown Rx %) nasal spray pen needle, diabetic 32 gauge x #450 ea 12/27/23 02/24/24 Unknown Rx 1/4 (BD Ultra-Fine Micro Pen Needle) budesonide 160 mcg-glycopyr 9 2 inh inhalation BID #10.7 grams 12/30/23 02/22/24 Unknown Rx mcg-formot 4.8 mcg/actuation HFA inhaler (Breztri Aerosphere) lancets 28 gauge (Comfort EZ #450 ea 01/05/24 02/24/24 Unknown Rx Lancets) albuterol sulfate 2.5 mg/3 mL See Rx Instructions .Route 01/06/24 02/22/24 Unknown Rx (0.083 %) solution for nebulization .COMPLEX #180 mL promethazine 50 mg tablet 50 mg PO BID PRN nausea and 01/06/24 02/22/24 Unknown Rx vomiting #60 tabs amitriptyline 50 mg tablet 50 mg PO DAILY #90 tabs 01/07/24 02/22/24 02/22/24 Rx clonidine 0.2 mg/24 hr weekly See Rx Instructions .Route 01/07/24 02/22/24 Unknown Rx transdermal patch .COMPLEX #4 film duloxetine 60 mg capsule,delayed 60 mg PO DAILY #90 caps 01/07/24 02/22/24 02/08/24 Rx release furosemide 20 mg tablet 20 mg PO DAILY #90 tabs 01/07/24 02/22/24 Unknown Rx gabapentin 600 mg tablet 600 mg PO TID #270 tabs 01/07/24 02/22/24 02/22/24 Rx levothyroxine 50 mcg tablet 50 mcg PO DAILY #90 tabs 01/07/24 02/22/24 02/22/24 Rx (Synthroid) montelukast 10 mg tablet 10 mg PO DAILY #90 tabs 01/07/24 02/22/24 02/22/24 Rx naloxegol 25 mg tablet (Movantik) 25 mg PO QAM #90 tabs 01/07/24 02/22/24 02/22/24 Rx onabotulinumtoxinA 100 unit See Rx Instructions .Route 01/10/24 02/24/24 12/27/23 Rx solution for injection (Botox) .COMPLEX #2 ea atorvastatin 40 mg tablet 40 mg PO DAILY #90 tabs 01/13/24 02/22/24 02/08/24 Rx clonidine HCl 0.2 mg tablet See Rx Instructions .Route 01/13/24 02/22/24 Unknown Rx .COMPLEX #30 tabs fluconazole 150 mg tablet 150 mg PO DAILY 3 days #3 tabs 01/26/24 02/22/24 Unknown Rx diazepam 5 mg tablet (Valium) 5 mg PO BID PRN anxiety #60 tabs 02/07/24 02/22/24 02/22/24 Rx semaglutide 2 mg/dose (8 mg/3 mL) See Rx Instructions .Route 02/10/24 02/22/24 02/08/24 Rx subcutaneous pen injector (Ozempic) .COMPLEX #6 mL zolpidem 10 mg tablet 10 mg PO .qhs insomnia #30 tabs 02/14/24 02/22/24 02/21/24 Rx diclofenac potassium 50 mg oral See Rx Instructions .Route 02/15/24 02/22/24 Unknown Rx powder packet ([employer]) .COMPLEX #9 grams rimegepant 75 mg disintegrating 75 mg PO ONCE PRN migraine 02/15/24 02/22/24 Unknown Rx tablet (Nurtec ODT) headache #14 tabs sumatriptan succinate 100 mg tablet See Rx Instructions .Route 02/15/24 02/22/24 Unknown Rx .COMPLEX #9 tabs telmisartan 80 mg tablet 80 mg PO DAILY #30 tabs 02/15/24 02/22/24 02/22/24 Rx topiramate 100 mg tablet 100 mg PO BID #180 tabs 02/15/24 02/22/24 02/21/24 Rx trazodone 100 mg tablet 100 mg PO .qhs 30 days #30 tabs 02/15/24 02/22/24 02/21/24 Rx amlodipine 5 mg tablet 5 mg PO DAILY #90 tabs 02/17/24 02/22/24 02/22/24 Rx azelastine 0.05 % eye drops 1 drp ophthalmic (eye) BID 02/22/24 02/22/24 02/20/24 History estradiol 1 mg tablet 1 mg PO DAILY 02/22/24 02/22/24 02/22/24 History fenofibrate 54 mg tablet 54 mg PO DAILY 02/22/24 02/22/24 02/22/24 History hydrocortisone 10 mg tablet 10 mg PO TID 02/22/24 02/22/24 02/22/24 History linaclotide 145 mcg capsule 145 mcg PO DAILY 02/22/24 02/22/24 02/22/24 History (Linzess) nadolol 40 mg tablet 40 mg PO DAILY PRN Hypertension 02/22/24 02/22/24 02/22/24 History albuterol sulfate 90 mcg/actuation 1 puff inhalation Q6H PRN 02/24/24 02/24/24 Unknown History aerosol inhaler Shortness Of Breath cyclobenzaprine 10 mg tablet 10 mg PO TID 02/24/24 02/24/24 02/22/24 History esomeprazole magnesium 40 mg 40 mg PO DAILY 02/24/24 02/24/24 02/23/24 History capsule,delayed release Allergies Allergy/AdvReac Type Severity Reaction Status Date / Time No Known Allergies Allergy Verified 01/31/24 12:08 PFSH Acute PFSH: Medical History Multiple falls Gianni's disease Hypertension, portal Psychiatric care Surgical History History of fusion of lumbar spine History of laminectomy In right HIP History of hip surgery Right hip History of mastectomy BILATERAL History of total adrenalectomy History of cholecystectomy History of hysterectomy Family History Mother Cancer BREAST Father Cancer LUNG Grandmother Cancer MATERNAL- BREAST Family/Other Cancer Grandfather Cancer PATERNAL- LUNG Sister Cancer BREAST Denies family history of Clotting disorder Heart disease Chronic kidney disease (CKD) Bleeding disorder Thyroid disease Stroke Social History Smoking and tobacco/nicotine status: never used tobacco/nicotine Alcohol intake: never Female Reproductive History: Para: 4 Vitals/I&O/Wt Last Vital Signs Temp 97.9 F 02/24/24 11:00 Pulse 69 02/24/24 11:00 Resp 16 02/24/24 11:00 BP 94/62 02/24/24 11:00 Pulse Ox 97 02/24/24 11:00 O2 Del Method Nasal Cannula 02/24/24 11:00 O2 Flow Rate 1 02/24/24 11:00 02/24/24 02/24/24 02/24/24 06:59 14:59 22:59 Intake Total 948.5 / 2023.5 1590 / 1590 Output Total 375 / 1175 400 / 400 Balance 573.5 / 848.5 1190 / 1190 Weight last 48 hrs Weight 70.959 kg Weight 68.946 kg Weight 65.771 kg Physical Exam Narrative: General: lethargic, appears somnolent HEENT: PERRLA, pupils bilaterally equal and reactive, pallors not present Chest: Normal vesicular breath sounds, no added sounds, equal good air entry bilaterally CVS: S1-S2 regular, no murmurs, no tachycardia, no gallops, no rubs Abdomen: Soft, nontender, no organomegaly, bowel sounds present Neuro: No focal deficits, no facial deformity, AO x3, power 5/5 in all limbs Urinary Catheter Management: Price: Cath Placed During This Visit: yes, but has since been removed by the nurse Reason for Continuing Indwelling Catheter: Decision to DC Catheter Urinary Catheter Date of Insertion: 02/23/24 Urinary Catheter Time of Insertion: 11:40 Date Urinary Catheter Removed: 02/24/24 Time Urinary Catheter Discontinued: 13:16 A&P Assessment and plan (1) Hypotension: 58-year-old lady status post lumbar surgery yesterday as noted above. Postop course complicated by hypotension. Suspect currently that hypotension may be related to receiving multiple antihypertensives and diuretics earlier today. 500 cc bolus completed, ordered for another 500 cc Lay back in bed in Trendelenburg position. Increase midodrine to 10 mg 3 times daily. Stress dose steroids at hydrocortisone 100 mg IV every 6 hours for possibility of addisonian crisis. If fails to improve with above interventions, likely will need to transfer to ICU and start pressor support. Stat CBC ordered to trend hemoglobin. Concern for postop anemia. Estimated blood loss in surgery at 200 cc. Additionally ordered for stat CBC CMP. Hold opiates until blood pressure improves. May use NSAIDs and IV Tylenol for pain management until blood pressure improves. check stat FS Stop amlodipine, losartan, lasix , nadolol, will resume serially if needed Further orders dependent on clinical course. Attestations Medical Necessity Statement*: per admitting attending Coding Level of Care Code Acute Code for Chg Fwd High MDM includes number and complexity of problems actively addressed during encounter, amount and/or complexity of data reviewed/ordered and described risk of complication, morbidity or mortality of management as documented Diagnoses Hypotension I95.9
[2024-02-24 15:53] LABS: Hematocrit 28.2 % (36-47)
[2024-02-24 16:20] LABS: Glucose Point of Care 188 mg/dL (70-110)
[2024-02-24] MEDS: acetaminophen 1,000 MG/100 ML PIGGYBACK 400 MG IV ×2 (16:22→23:57)
[2024-02-24] MEDS: hydrocortisone 100 mg/2 mL SDV IVP ×2 (16:22→20:54)
[2024-02-24] MEDS: sodium chloride 0.9% 500 ML 999 ML IV (16:23)
[2024-02-24] MEDS: midodrine 5 mg TABLET 10 MG PO ×2 (16:24→20:55)
[2024-02-24] MEDS: insulin lispro 100 unit/1 mL 10 UNIT SUBCUT (18:03)
[2024-02-24 18:57] LABS: Alanine Aminotransferase 8 U/L (0-33); Albumin Level 2.9 g/dL (3.5-5.2); Alkaline Phosphatase 90 U/L (35-105); Anion Gap 13.8 (5-19); Aspartate Amino Transferase 14 U/L (0-32); Blood Urea Nitrogen 11 mg/dL (6-20); Calcium 7.8 mg/dL (8.5-10.5); Carbon Dioxide 20 mmol/L (22-29); Chloride 110 mmol/L (98-107); Creatinine Clr Calc Pharmacy 112.5601; Globulin 2.7 g/dL (1.3-4.6); Glomerular Filtration Rate 103.4 mL/min (90-130); Glucose 163 mg/dL (65-115); Osmolality Calculated 293 mOsm/kg (285-295); Potassium 3.8 mmol/L (3.5-5.1); Sodium 140 mmol/L (136-145); Total Bilirubin 0.2 mg/dL (0.15-1.2); Total Protein 5.6 g/dL (6.6-8.7)
[2024-02-24 20:03] LABS: Basophils % 0.2 %; Eosinophils # 0.2 10^3/uL (0.0-0.8); Eosinophils % 1.6 %; Hematocrit 28.9 % (36-47); Lymphocytes # 0.9 10^3/uL (0.8-4.8); Lymphocytes % 8.8 %; Mean Corpuscular HGB Conc 31.1 g/dL (30-55); Mean Corpuscular Hemoglobin 30.4 pg (27-33); Mean Corpuscular Volume 97.6 fl (85-98); Mean Platelet Volume 9.4 fL (7.4-10.4); Monocytes # 0.3 10^3/uL (0.2-0.9); Monocytes % 3.1 %; Neutrophils % 85.5 %; Nucleated Red Blood Cells % 0 %; Platelet Count 317 10^3/cmm (157-399); Red Blood Count 2.96 10^6/uL (3.85-5.65); Red Cell Distribution Width 12.8 % (12.1-15.1); White Blood Count 10.17 10^3/uL (3.29-11.43)
[2024-02-24] MEDS: amitriptyline 25 mg Tablet 50 MG PO (20:55)
[2024-02-24] MEDS: trazodone 100 mg Tablet PO (20:55)
[2024-02-25] VITALS (9 sets, daily range): BP systolic 120–146; BP diastolic 75–92; PULSE 69–74; RESP 16–18; TEMP 36.3–36.7; O2SAT 91–99
[2024-02-25] MEDS: morphine IR 15 mg Tablet 30 MG PO (00:11)
[2024-02-25] MEDS: zolpidem 5 mg Tablet 10 MG PO (00:11)
[2024-02-25] MEDS: hydrocortisone 100 mg/2 mL SDV IVP ×3 (02:54→15:18)
[2024-02-25] MEDS: venlafaxine ER (24HR) 75 mg Capsule PO (05:49)
[2024-02-25] MEDS: acetaminophen 1,000 MG/100 ML PIGGYBACK 400 MG IV (07:36)
[2024-02-25] MEDS: ipratropium-albuterol 3 mL Neb INHALATION (07:39)
[2024-02-25 07:47] LABS: Glucose Point of Care 131 mg/dL (70-110)
[2024-02-25] MEDS: montelukast sodium 10 mg Tablet PO (08:06)
[2024-02-25] MEDS: ascorbic acid 500 mg Tablet PO (08:06)
[2024-02-25] MEDS: midodrine 5 mg TABLET 10 MG PO (08:06)
[2024-02-25] MEDS: atorvastatin 40 mg Tablet PO (08:06)
[2024-02-25] MEDS: topiramate 100 mg Tablet PO (08:06)
[2024-02-25] MEDS: levothyroxine 50 mcg Tablet PO (08:06)
[2024-02-25] MEDS: tizanidine 4 mg Tablet PO ×2 (08:06→15:18)
[2024-02-25] MEDS: docusate sodium 100 mg Capsule PO (08:06)
[2024-02-25] MEDS: fluconazole 100 mg Tablet 150 MG PO (08:06)
[2024-02-25] MEDS: duloxetine 60 mg Capsule PO (08:06)
[2024-02-25] MEDS: oxyCODONE 10 mg ER (12 HR) Tablet PO (08:10)
[2024-02-25] MEDS: budesonide 0.5 mg/2 mL Neb INHALATION (08:24)
--- NOTE | 2024-02-25 09:26 | PC.SOCIAL ---
IMM Update Pg. 2 of IMM updated and reviewed with patient, who verbalized understanding. Copy provided.
[2024-02-25] MEDS: estradiol 1 mg Tablet PO (09:52)
[2024-02-25] MEDS: fluticasone nasal spray 16gm Btl 1 SPRAY INTRANASAL (09:56)
--- NOTE | 2024-02-25 10:31 | PM.DCS ---
Discharge Providers Date of Admission: 02/23/24 15:53 Date of Discharge: February 25, 2024 Attending Provider at Admission: Munir Chan DO Attending Provider at Discharge: Munir Chan DO Primary Care Provider: Neda Hurt APN Diagnoses at Discharge Discharge Diagnosis (1) Hypotension: Status: Acute Reason for Visit Reason for Visit: M48.062 Physical Exam Narrative: Patient was resting comfortable in bed pain was controlled. She is asleep I woke her up she was up with physical therapy yesterday. Urinary Catheter Management: Price: Cath Placed During This Visit: yes, but has since been removed by the nurse Reason for Continuing Indwelling Catheter: Acute Urinary Retention or Obstruction Urinary Catheter Date of Insertion: 02/25/24 Urinary Catheter Time of Insertion: 00:21 Date Urinary Catheter Removed: 02/24/24 Time Urinary Catheter Discontinued: 13:16 Discharge Data Studies Completed and Pending Completed Studies During Hospitalization Category Date Time Status XR lumbar spine 2-3V* 18271 Routine Exams 02/23/24 00:00 Completed Laboratory Results WBC 10.17 10^3/uL (3.29-11.43) 02/24/24 19:47 Corrected WBC Cancelled 02/24/24 17:40 RBC 2.96 10^6/uL (3.85-5.65) L 02/24/24 19:47 Hgb 9.00 g/dL (11.27-16.99) L 02/24/24 19:47 Hct 28.9 % (36-47) L 02/24/24 19:47 MCV 97.6 fl (85-98) 02/24/24 19:47 MCH 30.4 pg (27-33) 02/24/24 19:47 MCHC 31.1 g/dL (30-55) 02/24/24 19:47 RDW 12.8 % (12.1-15.1) 02/24/24 19:47 Plt Count 317 10^3/cmm (157-399) 02/24/24 19:47 MPV 9.4 fL (7.4-10.4) 02/24/24 19:47 Gran % Cancelled 02/24/24 17:40 Neut % (Auto) 85.5 % 02/24/24 19:47 Lymph % (Auto) 8.8 % 02/24/24 19:47 Maury % (Auto) 3.1 % 02/24/24 19:47 Eos % (Auto) 1.6 % 02/24/24 19:47 Baso % (Auto) 0.2 % 02/24/24 19:47 Neut # (Auto) 8.70 10^3/uL (1.8-7.7) H 02/24/24 19:47 Lymph # (Auto) 0.9 10^3/uL (0.8-4.8) 02/24/24 19:47 Maury # (Auto) 0.3 10^3/uL (0.2-0.9) 02/24/24 19:47 Eos # (Auto) 0.2 10^3/uL (0.0-0.8) 02/24/24 19:47 Baso # (Auto) 0.0 10^3/uL (0.0-0.1) 02/24/24 19:47 Absolute Gran (auto) Cancelled 02/24/24 17:40 Nucleated RBC % (auto) 0 % 02/24/24 19:47 Nucleated RBCs # 0.0 /100WBC 02/24/24 19:47 Sodium 140 mmol/L (136-145) 02/24/24 17:40 Potassium 3.8 mmol/L (3.5-5.1) 02/24/24 17:40 Chloride 110 mmol/L (98-107) H 02/24/24 17:40 Carbon Dioxide 20 mmol/L (22-29) L 02/24/24 17:40 Anion Gap 13.8 (5-19) 02/24/24 17:40 BUN 11 mg/dL (6-20) 02/24/24 17:40 Creatinine 0.6 mg/dL (0.5-0.9) 02/24/24 17:40 GFR Calculation 103.4 mL/min (90-130) 02/24/24 17:40 Glucose 163 mg/dL (65-115) H 02/24/24 17:40 POC Glucose 131 mg/dL (70-110) H 02/25/24 07:45 Calculated Osmolality 293 mOsm/kg (285-295) 02/24/24 17:40 Calcium 7.8 mg/dL (8.5-10.5) L 02/24/24 17:40 Total Bilirubin 0.2 mg/dL (0.15-1.2) 02/24/24 17:40 AST 14 U/L (0-32) 02/24/24 17:40 ALT 8 U/L (0-33) 02/24/24 17:40 Alkaline Phosphatase 90 U/L (35-105) 02/24/24 17:40 Total Protein 5.6 g/dL (6.6-8.7) L 02/24/24 17:40 Albumin 2.9 g/dL (3.5-5.2) L 02/24/24 17:40 Globulin 2.7 g/dL (1.3-4.6) 02/24/24 17:40 Blood Type O Positive 02/23/24 12:31 Rho(D) Type Rh positive 02/23/24 12:31 Antibody Screen Negative 02/23/24 12:31 Vitals Last Vital Signs Temp 98.0 F 02/25/24 07:47 Pulse 70 02/25/24 08:35 Resp 16 02/25/24 08:26 BP 146/92 02/25/24 07:47 Pulse Ox 93 02/25/24 08:35 O2 Del Method Room Air 02/25/24 08:35 O2 Flow Rate 1 02/25/24 08:26 Discharge Plan Discharge Patient Disposition: Home Condition: Stable Prescriptions: Continued midodrine 5 mg tablet 5 mg PO DAILY (DME) Rollinator See Rx Instructions .Route .MEDSUPPLY Qty: 1 0RF Rx Instructions: As directed (DME) Bedside commode See Rx Instructions .Route .MEDSUPPLY Qty: 1 0RF Rx Instructions: As directed ascorbic acid (vitamin C) [Vitamin C With Tiffany Hips] 1,000 mg tablet 500 mg PO DAILY docusate sodium 100 mg capsule 100 mg PO DAILY Primatene Mist 0.125 mg/actuation HFA aerosol inhaler 2 puff inhalation BID PRN (Reason: Allergy Symptoms) Rx Instructions: may repeat once after 1 minute spironolactone 25 mg tablet 25 mg PO DAILY PRN (Reason: Edema) fluticasone propion-salmeterol [Advair HFA] 115-21 mcg/actuation HFA aerosol inhaler 2 puff inhalation BID PRN (Reason: Shortness Of Breath) morphine 15 mg tablet 15 mg PO Q6H PRN (Reason: Pain) ipratropium-albuterol 0.5 mg-3 mg(2.5 mg base)/3 mL solution for nebulization See Rx Instructions .ROUTE .COMPLEX Qty: 360 5RF Dose Instruction: Inhale 1 vial via nebulizer every 6 hours Rx Instructions: Inhale 1 vial via nebulizer every 6 hours as needed. (DME) Oxygen-home See Rx Instructions .Route .MEDSUPPLY Qty: 1 0RF Rx Instructions: 2L of oxygen per NC continuous fluticasone propionate 50 mcg/actuation spray,suspension 1 spray intranasal DAILY Qty: 16 6RF Rx Instructions: administer into each nostril (DME) Bath mat See Rx Instructions .Route .MEDSUPPLY Qty: 1 0RF Rx Instructions: As directed (DME) Shower rails See Rx Instructions .Route .MEDSUPPLY Qty: 1 0RF Rx Instructions: As directed (DME) Shower chair See Rx Instructions .Route .MEDSUPPLY Qty: 1 0RF Rx Instructions: As directed (DME) pen needle, diabetic [TRUEplus Pen Needle] 32 gauge x 5/32 needle See Rx Instructions .ROUTE .COMPLEX Qty: 300 1RF Dose Instruction: Use subcutaneously to inject novolog 3 times a day Rx Instructions: Use subcutaneously to inject novolog 3 times a day venlafaxine 75 mg capsule,extended release 24hr 75 mg PO QAM 30 Days Qty: 30 3RF (DME) Infinity Test strips Strip See Rx Instructions .ROUTE .MEDSUPPLY Qty: 450 0RF Rx Instructions: As directed (DME) blood-glucose meter [Infinity Meter Kit] Kit See Rx Instructions .Route Qty: 1 0RF Rx Instructions: As directed (DME) lancets [Safety Lancets] 28 gauge misc See Rx Instructions .ROUTE .MEDSUPPLY Qty: 100 0RF Rx Instructions: As directed naproxen 375 mg tablet 375 mg PO BID PRN (Reason: pain) Qty: 180 1RF (DME) FreeStyle Hilda 3 Custar Misc See Rx Instructions .Route Qty: 1 0RF Rx Instructions: As directed ipratropium bromide 42 mcg (0.06 %) spray,non-aerosol 2 spray intranasal TID Qty: 15 6RF Rx Instructions: administer into each nostril (DME) Accu-Chek Guide test strips Strip See Rx Instructions .Route Qty: 100 0RF Rx Instructions: As directed (DME) blood-glucose meter [Accu-Chek Guide Glucose Meter] Misc See Rx Instructions .Route Qty: 1 0RF Rx Instructions: As directed insulin lispro [Humalog KwikPen Insulin] 100 unit/mL insulin pen 10 unit SUBCUT TID Qty: 15 1RF Rx Instructions: PER SLIDING SCALE (DME) pen needle, diabetic [BD Ultra-Fine Micro Pen Needle] 32 gauge x 1/4 needle See Rx Instructions .ROUTE .MEDSUPPLY Qty: 450 3RF Rx Instructions: 5 times daily (DME) FreeStyle Hilda 3 Sensor Device See Rx Instructions .Route Qty: 1 0RF Rx Instructions: As directed epinephrine [EpiPen] 0.3 mg/0.3 mL auto-injector 0.3 mg IM Q4H PRN (Reason: anaphylaxis) Qty: 2 0RF Breztri Aerosphere 160-9-4.8 mcg/actuation HFA aerosol inhaler 2 inh inhalation BID Qty: 10.7 3RF (DME) lancets [Comfort EZ Lancets] 28 gauge misc See Rx Instructions .Route Qty: 450 1RF Rx Instructions: As directed 4 times a day. albuterol sulfate 2.5 mg /3 mL (0.083 %) solution for nebulization See Rx Instructions .ROUTE .COMPLEX Qty: 180 6RF Dose Instruction: Inhale 1 vial via nebulizer four times a day Rx Instructions: Inhale 1 vial via nebulizer four times a day as needed promethazine 50 mg tablet 50 mg PO BID PRN (Reason: nausea and vomiting) Qty: 60 0RF amitriptyline 50 mg tablet 50 mg PO DAILY Qty: 90 2RF clonidine 0.2 mg/24 hr patch weekly See Rx Instructions .ROUTE .COMPLEX Qty: 4 5RF Dose Instruction: Apply 1 patch to skin once a week Rx Instructions: Apply 1 patch to skin once a week duloxetine 60 mg capsule,delayed release(DR/EC) 60 mg PO DAILY Qty: 90 2RF furosemide 20 mg tablet 20 mg PO DAILY Qty: 90 2RF gabapentin 600 mg tablet 600 mg PO TID Qty: 270 2RF levothyroxine [Synthroid] 50 mcg tablet 50 mcg PO DAILY Qty: 90 2RF montelukast 10 mg tablet 10 mg PO DAILY Qty: 90 2RF Movantik 25 mg tablet 25 mg PO QAM Qty: 90 1RF Rx Instructions: must be taken on empty stomach; no food 1 hr after or 2-3 hrs before dose Botox 100 unit recon soln See Rx Instructions .ROUTE .COMPLEX Qty: 2 0RF Dose Instruction: Inject 155 units IM-31 sites, 5 units/site per FDA protocol: 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, 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, frontalis (2 sites bilaterally),temporalis (4 sites bilateral), occipitalis (3 sites bilateral), paraspinosus cervical bilaterally (2 injections), trapezius (3 sites bilateral) Rx Instructions: Inject 155 units IM-31 sites, 5 units/site per FDA protocol: atorvastatin 40 mg tablet 40 mg PO DAILY Qty: 90 2RF clonidine HCl 0.2 mg tablet See Rx Instructions .ROUTE .COMPLEX Qty: 30 0RF Dose Instruction: Take 1 tablet by mouth at night if BP is 160/95 or higher Rx Instructions: Take 1 tablet by mouth at night if BP is 160/95 or higher fluconazole 150 mg tablet 150 mg PO DAILY 3 Days Qty: 3 0RF Rx Instructions: Hold Movantick while on this. diazepam [Valium] 5 mg tablet 5 mg PO BID PRN (Reason: anxiety) Qty: 60 0RF Ozempic 2 mg/dose (8 mg/3 mL) pen injector See Rx Instructions .ROUTE .COMPLEX Qty: 6 5RF Dose Instruction: INJECT SUBCUTANEOUSLY 2 MG EVERY WEEK Rx Instructions: INJECT SUBCUTANEOUSLY 2 MG EVERY WEEK ON FRIDAYS zolpidem 10 mg tablet 10 mg PO .qhs Qty: 30 1RF diclofenac potassium [Cambia] 50 mg powder in packet See Rx Instructions .ROUTE .COMPLEX Qty: 9 11RF Dose Instruction: Take 1 packet by mouth daily as needed for migraine; Take on empty stomach w/ water Rx Instructions: Take 1 packet by mouth daily as needed for migraine; Take on empty stomach w/ water trazodone 100 mg tablet 100 mg PO .qhs 30 Days Qty: 30 3RF topiramate 100 mg tablet 100 mg PO BID Qty: 180 2RF telmisartan 80 mg tablet 80 mg PO DAILY Qty: 30 4RF sumatriptan succinate 100 mg tablet See Rx Instructions .ROUTE .COMPLEX Qty: 9 11RF Dose Instruction: Take 1 tablet by mouth at the onset of migraine, may repeat in 2 hours. max of 2 doses per day Rx Instructions: Take 1 tablet by mouth at the onset of migraine, may repeat in 2 hours. max of 2 doses per day Nurtec ODT 75 mg tablet,disintegrating 75 mg PO ONCE PRN (Reason: migraine headache) Qty: 14 5RF amlodipine 5 mg tablet 5 mg PO DAILY Qty: 90 2RF azelastine 0.05 % drops 1 drp ophthalmic (eye) BID Rx Instructions: Instill 1 drop into both eyes twice day estradiol 1 mg tablet 1 mg PO DAILY Rx Instructions: Take 1 tablet by mouth every day nadolol 40 mg tablet 40 mg PO DAILY PRN (Reason: Hypertension) Rx Instructions: Take 1 tablet by mouth every day hydrocortisone 10 mg tablet 10 mg PO TID Rx Instructions: Take 1 tablet by mouth 3 times a day fenofibrate 54 mg tablet 54 mg PO DAILY Rx Instructions: Take 1 tablet by mouth daily Linzess 145 mcg capsule 145 mcg PO DAILY Rx Instructions: Take 1 capsule by mouth 30 minutes before breakfast albuterol sulfate 90 mcg/actuation HFA aerosol inhaler 1 puff INHALATION Q6H PRN (Reason: Shortness Of Breath) cyclobenzaprine 10 mg tablet 10 mg PO TID esomeprazole magnesium 40 mg capsule,delayed release(DR/EC) 40 mg PO DAILY Discharge Orders: Discharge Order (Routine); Ordered 02/25/24 Ordered By: Munir Chan Referrals: Munir Chan, [Physician] - 03/09/24 1:00 pm Discharge Diet: Advance as tolerated Discharge Activity: Limit activity as instructed Patient Instructions: Opioid Safety Activity Restrictions/Additional Instructions: Thank you for [facility] for your care! The following is a list of instructions, from your provider, to follow upon your discharge to ensure you have the optimal recovery from your recent injury orsurgery. Follow-up care is a espinoza part of your treatment and safety. Be sure to make and go to all appointments, and call your doctor if you are having problems. If you do not already have a follow-up appointment made, call Dr. Chan office in the next 1-3 days to make follow up appointment for 1 weeks at [phone]. It is also a good idea to know your test results and keep a list of the medicines you take. Medications will be prescribed for you at your provider's discretion. These medications are to be used as instructed; if they are taken more often that prescribed they will not be refilled early and in most cases will not be refilled at all. > When a refill is needed,you should contact meri cruz 2-3 business days before your prescription runs out. Medications will NOT be refilled by director of community education providers after hours! > Many pain medications contain Tylenol (Acetaminophen). Do not consume more than 4,000 mg of Tylenol per day in total with any combination ofmedications. > Pain medications can cause constipation. Please use an over the counter stool softener as directed, while taking pain medications. Consulty our local pharmacist with questions or recommendations on stool softeners. If constipation persists, contact our office or your primary care provider. > While under our care,you are not to receive pain medications or other controlled substances from any other provider unless our office is notified and approves. Any attempts to do so will result in refusal to prescribe any further pain medications and possible dismissal from our practice. ? Showering is permitted, however we ask that you do not take a bath, sit in a whirlpool / Jacuzzi, or go swimming for 1 month. For only the first 2 days after surgery, lt wilt be necessary for you to cover your wound/dressing with plastic and tape to keep it dry. ? Walking is essential for the healing process after surgery. We would like you to slowly advance your walking. This should be done on relatively flat clear ground (inside or out) or can be done on a treadmill. Remember this goal does not have to happen all at once, slowly increase your distance and duration. This can be broken into more more than one walk per day as tolerated. Patients who walk as directed after surgery rarely require Physical Therapy. In the unlikely event this issue arises your provider will direct hospital staff to make the appropriate arrangements. ? No lifting over 5 pounds {a gallon of milk) or bending/twisting until further notice. Each of these activities places an unnecessary amount of stress onto the body and can impede the delicate healing process. > Instead of bending at the waist, keep your back straight and bend at the knees. > Instead of twisting your torso, keep your back straight and turn your entire body with your feet. ? You may sleep in any position which makes you comfortable. Many patients find comfort sleeping in a reclining chair. It is not abnormal to have difficulty sleeping for the first several weeks following your surgery. We recommend trying Benadry! or Tylenol PM as directed to help with your sleeping difficulties. Both medications are over the counter and available withoutprescription. ? NO SMOKING!!! Smoking dramatically increases the probability of developing postoperative wound infections. ? Common complaints after lumbar and/or thoracic spine surgery include, but are not limited to: numbness and/or tingling in the legs, pain around the incision and surrounding tissues, muscle spasms, or stiffness of the middle to low back. Contact our office if these symptoms persist or if an acute change occurs. ? No driving for the first 3-5days, and not while taking narcotics [] until seen at your follow-up appointment and cleared. There are no restrictions for riding on short trips, however if you take a longer trip, arrangements should be made to make regular stops to get out of the vehicle and stretch . ? Swelling is an unfortunate event that will take place with any surgery and is the primary source of your postoperative discomfort. While walking and regular approved activities helps control inflammation, there are additional steps you can take to minimizeswelling. > Place ice over the surgical site and surrounding tissue for twenty minutes, followed by applying a low/medium heat (heating pad) for an additional twenty minutes every 1-2 hours as needed for painrelief. > You may use of over the counter anti-inflammatory medications (Ibuprofen, Motrin, Aleve, Advil, etc) as directed on the package label. These types of medicines wm significantly reduce the amount of discomfort you experience after surgery from swelling. It should be noted that if you have and allergy to any of these medications, or a history of ulcers or kidney disease you should consult you primary care provider prior to starting these medications. Discharge Attestations Time Spent in Discharge Care*: less than 30 min Quality Metrics Clinical Quality Measures [ No reported AMI, CVA or VTE this stay] Coding Level of Care Code Acute Code for Chg Fwd Diagnoses Hypotension I95.9
[2024-02-25 11:21] LABS: Glucose Point of Care 137 mg/dL (70-110)
[2024-02-25] MEDS: lactated ringers 1,000 ML 90 ML IV (12:27)
--- NOTE | 2024-02-25 14:30 | P.PN_ITS ---
Subjective 2 Subjective: Blood pressure is better controlled today. With midodrine 10 mg 3 times daily it is now ranging at 146 systolic. Midodrine reduced to 5 mg 3 times daily. Patient reports taking Nodolor losartan and amlodipine and Lasix only as as needed medications at home. Heart rate today is well-controlled. Patient was lethargic in the morning, however by the afternoon she was alert awake oriented able to self-feed and have a full conversation. Medications: Reviewed: Yes Vitals/I&O/Wt Last Vital Signs Temp 97.6 F 02/25/24 16:41 Pulse 73 02/25/24 16:41 Resp 16 02/25/24 16:41 BP 120/75 02/25/24 16:41 Pulse Ox 91 02/25/24 16:41 O2 Del Method Room Air 02/25/24 15:38 O2 Flow Rate 1 02/25/24 08:26 02/25/24 02/25/24 02/25/24 06:59 14:59 22:59 Intake Total 1030 / 3220 1220 / 1220 Output Total 600 / 1000 600 / 600 100 / 700 Balance 430 / 2220 620 / 620 -100 / 520 Weight last 48 hrs Weight 74.797 kg Weight 70.959 kg Physical Exam 2 Narrative: General: Awake alert oriented x 3 HEENT: PERRLA, pupils bilaterally equal and reactive, pallors not present Chest: Normal vesicular breath sounds, no added sounds, equal good air entry bilaterally CVS: S1-S2 regular, no murmurs, no tachycardia, no gallops, no rubs Abdomen: Soft, nontender, no organomegaly, bowel sounds present Neuro: No focal deficits, no facial deformity, AO x3, power 5/5 in all limbs Urinary Catheter Management: Price: Cath Placed During This Visit: yes, but has since been removed by the nurse Reason for Continuing Indwelling Catheter: Decision to DC Catheter Urinary Catheter Date of Insertion: 02/25/24 Urinary Catheter Time of Insertion: 00:21 Date Urinary Catheter Removed: 02/25/24 Time Urinary Catheter Discontinued: 15:57 Data 02/24/24 19:47 02/24/24 17:40 A&P Assessment and plan (1) Hypotension: 58-year-old lady status post lumbar surgery yesterday as noted above. Postop course complicated by hypotension. Suspect currently that hypotension may be related to receiving multiple antihypertensives and diuretics in the morning of February 24, 2024. Low suspicion for addisonian crisis Blood pressure improved after administration of 1 L fluid bolus and increasing midodrine to 10 mg 3 times daily. Blood pressure today trending towards hypertension with systolic recorded at 146 to 150 mmHg. Discussed with patient to change home midodrine dose to 5 mg 3 times daily and maintain blood pressure charting at home. Reduce hydrocortisone to her home dosing of 100 mg p.o. every 8 hours CBC with hemoglobin down to 9, preoperatively at 13. This morning remaining stable at 9. Discussed with patient to increase midodrine to 5 mg 3 times a day at home. He may go back to as needed use once blood pressure stabilizes. I am Uncertain why patient takes Amlodipine, , lasix , nadolol, telmisartan, clonidine po and patch on as as needed basis. Please discuss with PCP as outpatient to simplify antihypertensive regimen at home.For now they have been stopped. 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 I am uncertain which medication she actually takes or how she is deciding which prn medication to take. Advised to follow up with primary care physician in the next week to simplify her BP regimen. Stable for discharge from medicine standpoint Attestations 2 Medical Necessity Statement*: per admitting attending Coding Level of Care Code Acute Code for Chg Fwd Moderate MDM includes number and complexity of problems actively addressed during encounter, amount and/or complexity of data reviewed/ordered and described risk of complication, morbidity or mortality of management as documented Diagnoses Hypotension I95.9
[2024-02-25] MEDS: midodrine 5 mg TABLET PO (15:18)
== END 2024-02-25 16:43 | disposition home or self-care (01) | DRG 460 ==
LOC: MEDSURG 16:00
PROVIDERS: Student in an Organized Health Care Education/Training Program; Admitting Provider Orthopaedic Surgery; PCP Nurse Practitioner; Visit Provider Orthopaedic Surgery
PROC: 0SG1071 Fusion of 2 or more Lumbar Vertebral Joints with Autologous Tissue Substitute, Posterior Approach, Posterior Column, Open Approach (ICD-10-PCS; principal; 2024-02-23 10:10)
PROC: 0SG1071 Fusion of 2 or more Lumbar Vertebral Joints with Autologous Tissue Substitute, Posterior Approach, Posterior Column, Open Approach (ICD-10-PCS; 2024-02-23 10:10)
PROC: 0SG1071 Fusion of 2 or more Lumbar Vertebral Joints with Autologous Tissue Substitute, Posterior Approach, Posterior Column, Open Approach (ICD-10-PCS; CPT 27280; 2024-02-23 10:10)
PROC: 0SG1071 Fusion of 2 or more Lumbar Vertebral Joints with Autologous Tissue Substitute, Posterior Approach, Posterior Column, Open Approach (ICD-10-PCS; CPT 63005; 2024-02-23 10:10)
DX: M48.062 Spinal stenosis, lumbar region with neurogenic claudication (principal); E27.1 Primary adrenocortical insufficiency; K76.6 Portal hypertension; E89.6 Postprocedural adrenocortical (-medullary) hypofunction; E11.9 Type 2 diabetes mellitus without complications; J44.9 Chronic obstructive pulmonary disease, unspecified; I10 Essential (primary) hypertension; I95.2 Hypotension due to drugs; T50.2X5A Adverse effect of carbonic-anhydrase inhibitors, benzothiadiazides and other diuretics, initial encounter; Z79.52 Long term (current) use of systemic steroids; Z79.85 Long-term (current) use of injectable non-insulin antidiabetic drugs; Z79.4 Long term (current) use of insulin; Z98.1 Arthrodesis status; Z79.890 Hormone replacement therapy
CPT/HCPCS: 36415; 36416; 51702; 72100; 76000; 76937; 80053; 82962; 85014; 85018; 85025; 86850; 86900; 94640; 96372; 97116; 97162; 97530; C1713; C9359; J0131; J0330; J0690; J1100; J1170; J1644; J1720; J1815; J1885; J2250; J2405; J2704; J2710; J3010; J3370; J3490; J7030; J7040; J7120; J7626; J8499

== ENCOUNTER → 2024-03-09 13:00 | Outpatient (BNVA) | payer MEDICARE, MEDICAID, SELFPAY | PROVIDERS: PCP Nurse Practitioner; Visit Provider Orthopaedic Surgery | DX: Z98.1 Arthrodesis status (principal) | CPT/HCPCS: 99024 ==

== ENCOUNTER → 2024-05-23 11:13 | Outpatient (BNVA) | payer MEDICARE, MEDICAID, SELFPAY | PROVIDERS: PCP Nurse Practitioner; Visit Provider Specialist | DX: G43.711 Chronic migraine without aura, intractable, with status migrainosus (principal) | CPT/HCPCS: 64615 ==

== ENCOUNTER → 2024-05-25 13:23 | Outpatient (BNVA) | payer MEDICARE, MEDICAID, SELFPAY | PROVIDERS: PCP Nurse Practitioner; Visit Provider Orthopaedic Surgery | DX: Z98.1 Arthrodesis status (principal) | CPT/HCPCS: 72100; 99214 ==

== ENCOUNTER → 2024-06-07 08:00 | Outpatient (BNVA) | payer MEDICARE, MEDICAID, SELFPAY | PROVIDERS: PCP Nurse Practitioner; Visit Provider Thoracic Surgery (Cardiothoracic Vascular Surgery) | DX: E11.52 Type 2 diabetes mellitus with diabetic peripheral angiopathy with gangrene (principal); E11.621 Type 2 diabetes mellitus with foot ulcer; L89.622 Pressure ulcer of left heel, stage 2; L89.153 Pressure ulcer of sacral region, stage 3 | CPT/HCPCS: 97597; 99213; A6212 ×2 ==

== ENCOUNTER → 2024-07-06 12:52 | Outpatient (BNVA) | payer MEDICARE, MEDICAID, SELFPAY | PROVIDERS: PCP Nurse Practitioner; Visit Provider Orthopaedic Surgery | DX: Z98.1 Arthrodesis status (principal) | CPT/HCPCS: 72100 ==

== ENCOUNTER 2024-07-06 13:26 | Emergency (ER) | payer MEDICARE, MEDICAID, SELFPAY ==
[2024-07-06 13:33] VITALS: BP 152/124; PULSE 92; RESP 22; TEMP 36.7; O2SAT 100
--- NOTE | 2024-07-06 14:10 | ED_ITS ---
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 She says her oxygen concentrator stopped working. Her oxygen dropped. She says she is not feeling more short of breath than she normally does. No chest pain. She says she is having pain Related Data Home Medications Medication Instructions Recorded Confirmed ascorbic acid (vitamin C) 1,000 mg 500 mg PO DAILY 07/20/23 07/06/24 tablet (Vitamin C With Tiffany Hips) docusate sodium 100 mg capsule 100 mg PO DAILY 07/20/23 07/06/24 epinephrine 0.125 mg/actuation 2 puff inhalation BID PRN Allergy 07/20/23 07/06/24 aerosol inhaler (Primatene Mist) Symptoms estradiol 1 mg tablet 1 mg PO DAILY 02/22/24 07/06/24 fenofibrate 54 mg tablet 54 mg PO DAILY 02/22/24 07/06/24 hydrocortisone 10 mg tablet 10 mg PO TID 02/22/24 07/06/24 nadolol 40 mg tablet 40 mg PO DAILY PRN Hypertension 02/22/24 07/06/24 esomeprazole magnesium 40 mg 40 mg PO DAILY 02/24/24 07/06/24 capsule,delayed release Previous Rx's Medication Instructions Recorded Oxygen-home #1 ea 08/23/23 Bedside commode #1 10/25/23 Rollinator #1 10/25/23 Bath mat #1 11/03/23 Shower rails #1 11/03/23 Shower chair #1 ea 11/11/23 pen needle, diabetic 32 gauge x #300 ea 11/16/2332 (TRUEplus Pen Needle) ipratropium 0.5 mg-albuterol 3 mg See Rx Instructions .Route 11/19/23 (2.5 mg base)/3 mL nebulization .COMPLEX #360 mL soln blood sugar diagnostic (Infinity #450 ea 11/23/23 Test strips) blood-glucose meter (Infinity #1 ea 12/03/23 Meter Kit) lancets 28 gauge (Safety Lancets) #100 ea 12/03/23 insulin lispro 100 unit/mL 10 unit (0.1 mL) SUBCUT TID #15 mL 12/27/23 subcutaneous pen (Humalog KwikPen (U-100) Insulin) ipratropium bromide 42 mcg (0.06 2 spray intranasal TID #15 mL 12/27/23 %) nasal spray pen needle, diabetic 32 gauge x #450 ea 12/27/2309/30 (BD Ultra-Fine Micro Pen Needle) amitriptyline 50 mg tablet 50 mg PO DAILY #90 tabs 01/07/24 duloxetine 60 mg capsule,delayed 60 mg PO DAILY #90 caps 01/07/24 release gabapentin 600 mg tablet 600 mg PO TID #270 tabs 01/07/24 levothyroxine 50 mcg tablet 50 mcg PO DAILY #90 tabs 01/07/24 (Synthroid) montelukast 10 mg tablet 10 mg PO DAILY #90 tabs 01/07/24 naloxegol 25 mg tablet (Movantik) 25 mg PO QAM #90 tabs 01/07/24 atorvastatin 40 mg tablet 40 mg PO DAILY #90 tabs 01/13/24 semaglutide 2 mg/dose (8 mg/3 mL) See Rx Instructions .Route 02/10/24 subcutaneous pen injector (Ozempic) .COMPLEX #6 mL diclofenac potassium 50 mg oral See Rx Instructions .Route 02/15/24 powder packet (Cambia) .COMPLEX #9 grams sumatriptan succinate 100 mg tablet See Rx Instructions .Route 02/15/24 .COMPLEX #9 tabs topiramate 100 mg tablet 100 mg PO BID #180 tabs 02/15/24 midodrine 5 mg tablet 5 mg PO TID 30 days #60 tabs 02/25/24 morphine 15 mg immediate release 15 mg PO Q6H PRN Pain 7 days #30 03/02/24 tablet tabs epinephrine 0.3 mg/0.3 mL 0.3 mg (0.3 mL) IM ONCE PRN 03/03/24 injection, auto-injector (EpiPen) anaphylaxis #2 ea furosemide 20 mg tablet 20 mg PO DAILY #90 tabs 03/10/24 naproxen 375 mg tablet 375 mg PO BID PRN pain #180 tabs 03/10/24 venlafaxine 75 mg capsule,extended 75 mg PO QAM 90 days #90 caps 03/23/24 release 24 hr albuterol sulfate 2.5 mg/3 mL See Rx Instructions .Route 03/25/24 (0.083 %) solution for nebulization .COMPLEX #180 mL budesonide 160 mcg-glycopyr 9 2 inh inhalation BID #10.7 grams 03/27/24 mcg-formot 4.8 mcg/actuation HFA inhaler (Breztri Mang?rKartphere) blood sugar diagnostic (Accu-Chek #100 strips 03/31/24 Guide test strips) blood-glucose meter (Accu-Chek #1 ea 03/31/24 Guide Glucose Meter) blood-glucose meter,continuous #1 ea 03/31/24 (FreeStyle Hilda 3 [place]) fluticasone propionate 50 1 spray intranasal DAILY #16 grams 03/31/24 mcg/actuation nasal spray,suspension fluconazole 150 mg tablet 150 mg PO DAILY 3 days #3 tabs 04/02/24 trazodone 100 mg tablet 100 mg PO .qhs 30 days #30 tabs 04/03/24 zolpidem 10 mg tablet 10 mg PO .qhs insomnia #30 tabs 04/03/24 onabotulinumtoxinA 100 unit 155 unit IM .Q28 days #2 ea 04/12/24 solution for injection (Botox) diazepam 5 mg tablet 5 mg PO TID PRN muscle spasm 30 04/13/24 days #90 tabs albuterol sulfate 90 mcg/actuation 1 puff inhalation Q6H PRN 04/15/24 aerosol inhaler Shortness Of Breath #8.5 grams azelastine 0.05 % eye drops 1 drp ophthalmic (eye) BID #6 mL 04/15/24 fluticasone propionate 115 2 puff inhalation BID PRN 04/15/24 mcg-salmeterol 21 mcg/actuation Shortness Of Breath #12 grams HFA inhaler (Advair HFA) linaclotide 145 mcg capsule 145 mcg PO DAILY #90 caps 04/15/24 (Linzess) blood-glucose sensor (FreeStyle #6 ea 04/19/24 Hilda 3 Sensor device) spironolactone 25 mg tablet 25 mg PO DAILY PRN Edema #90 tabs 05/04/24 tizanidine 2 mg tablet 2 mg PO BID PRN muscle spasticity 05/30/24 #60 tabs miscellaneous medical supply 1 ea miscellaneous DAILY 06/07/24 Wheelchair #1 ea lancets (Accu-Chek Softclix #400 ea 06/17/24 Lancets) rimegepant 75 mg disintegrating See Rx Instructions .Route 06/30/24 tablet (Nurtec ODT) .COMPLEX #14 tabs promethazine 50 mg tablet See Rx Instructions .Route 07/05/24 .COMPLEX #60 tabs Allergies Allergy/AdvReac Type Severity Reaction Status Date / Time No Known Allergies Allergy Verified 07/06/24 13:42 Review of Systems Narrative: Constitutional symptoms: Negative except as documented in HPI. Skin symptoms: Negative except as documented in HPI. Eye symptoms: Negative except as documented in HPI. ENMT symptoms: Negative except as documented in HPI. Respiratory symptoms: Negative except as documented in HPI. Cardiovascular symptoms: Negative except as documented in HPI. Gastrointestinal symptoms: Negative except as documented in HPI. Genitourinary symptoms: Negative except as documented in HPI. Musculoskeletal symptoms: Negative except as documented in HPI. Neurologic symptoms: Negative except as documented in HPI. Psychiatric symptoms: Negative except as documented in HPI. Endocrine symptoms: Negative except as documented in HPI. PFSH ED PFSH: Medical History Multiple falls [place]'s disease Hypertension, portal Psychiatric care Surgical History History of fusion of lumbar spine History of laminectomy In right HIP History of hip surgery Right hip History of mastectomy BILATERAL History of total adrenalectomy History of cholecystectomy History of hysterectomy Family History Mother Cancer BREAST Father Cancer LUNG Grandmother Cancer MATERNAL- BREAST Family/Other Cancer Grandfather Cancer PATERNAL- LUNG Sister Cancer BREAST Denies family history of Clotting disorder Heart disease Chronic kidney disease (CKD) Bleeding disorder Thyroid disease Stroke Social History Smoking and tobacco/nicotine status: never used tobacco/nicotine Alcohol intake: never Female Reproductive History: Para: 4 Physical Exam Narrative: EXAM NARRATIVE: General: Alert, no acute distress. Skin: Warm, dry. Patient does have a decubitus ulcer in the sacral area. This does not appear actively infected. Head: Normocephalic, atraumatic. Neck: Supple, trachea midline. Eye: Extraocular movements are intact. Ears, nose, mouth and throat: mucosa moist. Cardiovascular: Regular, Normal peripheral perfusion. Respiratory: Lungs are clear to auscultation, respirations are non-labored, breath sounds are equal, Symmetrical chest wall expansion. Oxygen saturations improved with oxygen. No overt wheeze. No increased work of breathing. Gastrointestinal: Soft, Nontender, Non distended Musculoskeletal: Normal ROM, no deformity. Neurological: Alert and oriented, No focal neurological deficit observed. Psychiatric: Cooperative, appropriate mood & affect. Course Vital Signs: Vital signs: Vital Signs Temperature 98.0 F 07/06/24 13:33 Pulse Rate 92 07/06/24 13:33 Respiratory Rate 22 H 07/06/24 13:33 Blood Pressure 152/124 07/06/24 13:33 Pulse Oximetry 100 07/06/24 13:33 Oxygen Delivery Me thod Nasal Cannula 07/06/24 13:33 Oxygen Flow Rate 5 07/06/24 13:33 MDM - SOB/Dyspnea Medical Decision Making Assessment and plan: Chronic hypoxemic respiratory failure Decubitus ulcer Chronic pain syndrome ? Providing patient with oxygen. Looking to get her follow-up with Dr. Chan. - Discharged home - Discussed plan with patient. Answered any questions. - Evaluation and treatment of this problem were appropriate in the emergency setting. No radiology studies performed this visit Discharge Plan Discharge Patient Disposition: Home Clinical Impression: Chronic hypoxemic respiratory failure, Chronic pain syndrome, Decubitus ulcer Condition: Stable Prescriptions: No Action (DME) Rollinator See Rx Instructions .Route .MEDSUPPLY Qty: 1 0RF Rx Instructions: As directed (DME) Bedside commode See Rx Instructions .Route .MEDSUPPLY Qty: 1 0RF Rx Instructions: As directed miscellaneous medical supply Misc 1 ea miscellaneous DAILY Qty: 1 0RF ascorbic acid (vitamin C) [Vitamin C With Tiffany Hips] 1,000 mg tablet 500 mg PO DAILY docusate sodium 100 mg capsule 100 mg PO DAILY Primatene Mist 0.125 mg/actuation HFA aerosol inhaler 2 puff inhalation BID PRN (Reason: Allergy Symptoms) Rx Instructions: may repeat once after 1 minute ipratropium-albuterol 0.5 mg-3 mg(2.5 mg base)/3 mL solution for nebulization See Rx Instructions .ROUTE .COMPLEX Qty: 360 5RF Dose Instruction: Inhale 1 vial via nebulizer every 6 hours Rx Instructions: Inhale 1 vial via nebulizer every 6 hours as needed. tizanidine 2 mg tablet 2 mg PO BID PRN (Reason: muscle spasticity) Qty: 60 0RF (DME) Oxygen-home See Rx Instructions .Route .MEDSUPPLY Qty: 1 0RF Rx Instructions: 2L of oxygen per [place] continuous (DME) Bath mat See Rx Instructions .Route .MEDSUPPLY Qty: 1 0RF Rx Instructions: As directed (DME) Shower rails See Rx Instructions .Route .MEDSUPPLY Qty: 1 0RF Rx Instructions: As directed ([facility] [place] Shower chair See Rx Instructions .Route .MEDSUPPLY Qty: 1 0RF Rx Instructions: As directed (DME) pen needle, diabetic [TRUEplus Pen Needle] 32 gauge x 5/32 needle See Rx Instructions .ROUTE .COMPLEX Qty: 300 1RF Dose Instruction: Use subcutaneously to inject novolog 3 times a day Rx Instructions: Use subcutaneously to inject novolog 3 times a day (DME) Infinity Test strips Strip See Rx Instructions .ROUTE .MEDSUPPLY Qty: 450 0RF Rx Instructions: As directed (DME) blood-glucose meter [Infinity Meter Kit] Kit See Rx Instructions .Route Qty: 1 0RF Rx Instructions: As directed ([facility] [place]) lancets [Safety Lancets] 28 gauge misc See Rx Instructions .ROUTE .MEDSUPPLY Qty: 100 0RF Rx Instructions: As directed ipratropium bromide 42 mcg (0.06 %) spray,non-aerosol 2 spray intranasal TID Qty: 15 6RF Rx Instructions: administer into each nostril insulin lispro [Humalog KwikPen Insulin] 100 unit/mL insulin pen 10 unit SUBCUT TID Qty: 15 1RF Rx Instructions: PER SLIDING SCALE (DME) pen needle, diabetic [BD Ultra-Fine Micro Pen Needle] 32 gauge x 1/4 needle See Rx Instructions .ROUTE .MEDSUPPLY Qty: 450 3RF Rx Instructions: 5 times daily amitriptyline 50 mg tablet 50 mg PO DAILY Qty: 90 2RF duloxetine 60 mg capsule,delayed release(DR/EC) 60 mg PO DAILY Qty: 90 2RF gabapentin 600 mg tablet 600 mg PO TID Qty: 270 2RF levothyroxine [Synthroid] 50 mcg tablet 50 mcg PO DAILY Qty: 90 2RF montelukast 10 mg tablet 10 mg PO DAILY Qty: 90 2RF Movantik 25 mg tablet 25 mg PO QAM Qty: 90 1RF Rx Instructions: must be taken on empty stomach; no food 1 hr after or 2-3 hrs before dose atorvastatin 40 mg tablet 40 mg PO DAILY Qty: 90 2RF Ozempic 2 mg/dose (8 mg/3 mL) pen injector See Rx Instructions .ROUTE .COMPLEX Qty: 6 5RF Dose Instruction: INJECT SUBCUTANEOUSLY 2 MG EVERY WEEK Rx Instructions: INJECT SUBCUTANEOUSLY 2 MG EVERY WEEK ON FRIDAYS diclofenac potassium [Cambia] 50 mg powder in packet See Rx Instructions .ROUTE .COMPLEX Qty: 9 11RF Dose Instruction: Take 1 packet by mouth daily as needed for migraine; Take on empty stomach w/ water Rx Instructions: Take 1 packet by mouth daily as needed for migraine; Take on empty stomach w/ water topiramate 100 mg tablet 100 mg PO BID Qty: 180 2RF sumatriptan succinate 100 mg tablet See Rx Instructions .ROUTE .COMPLEX Qty: 9 11RF Dose Instruction: Take 1 tablet by mouth at the onset of migraine, may repeat in 2 hours. max of 2 doses per day Rx Instructions: Take 1 tablet by mouth at the onset of migraine, may repeat in 2 hours. max of 2 doses per day morphine 15 mg tablet 15 mg PO Q6H PRN (Reason: Pain) 7 Days Qty: 30 0RF epinephrine [EpiPen] 0.3 mg/0.3 mL auto-injector 0.3 mg IM ONCE PRN (Reason: anaphylaxis) Qty: 2 0RF furosemide 20 mg tablet 20 mg PO DAILY Qty: 90 2RF naproxen 375 mg tablet 375 mg PO BID PRN (Reason: pain) Qty: 180 1RF venlafaxine 75 mg capsule,extended release 24hr 75 mg PO QAM 90 Days Qty: 90 3RF albuterol sulfate 2.5 mg /3 mL (0.083 %) solution for nebulization See Rx Instructions .ROUTE .COMPLEX Qty: 180 6RF Dose Instruction: Inhale 1 vial via nebulizer four times a day Rx Instructions: Inhale 1 vial via nebulizer four times a day as needed Bekah Hogue 160-9-4.8 mcg/actuation HFA aerosol inhaler 2 inh inhalation BID Qty: 10.7 3RF (DME) blood-glucose meter [Accu-Chek Guide Glucose Meter] Misc See Rx Instructions .ROUTE .COMPLEX Qty: 1 0RF Dose Instruction: USE DIRECTED Rx Instructions: USE DIRECTED (DME) FreeStyle Hilda 3 [place] Misc See Rx Instructions .ROUTE .COMPLEX Qty: 1 0RF Dose Instruction: USE DIRECTED Rx Instructions: USE DIRECTED fluticasone propionate 50 mcg/actuation spray,suspension 1 spray intranasal DAILY Qty: 16 6RF Rx Instructions: administer into each nostril (DME) Accu-Chek Guide test strips Strip See Rx Instructions .ROUTE .COMPLEX Qty: 100 0RF Dose Instruction: USE DIRECTED 4 TIMES DAILY Rx Instructions: USE DIRECTED 4 TIMES DAILY fluconazole 150 mg tablet 150 mg PO DAILY 3 Days Qty: 3 1RF Rx Instructions: Hold Movantick while on this. trazodone 100 mg tablet 100 mg PO .qhs 30 Days Qty: 30 6RF zolpidem 10 mg tablet 10 mg PO .qhs Qty: 30 3RF Botox 100 unit recon soln 155 unit IM .Q28 days Qty: 2 3RF diazepam 5 mg tablet 5 mg PO TID PRN (Reason: muscle spasm) 30 Days Qty: 90 0RF azelastine 0.05 % drops 1 drp ophthalmic (eye) BID Qty: 6 3RF Rx Instructions: Instill 1 drop into both eyes twice day Linzess 145 mcg capsule 145 mcg PO DAILY Qty: 90 1RF Rx Instructions: Take 1 capsule by mouth 30 minutes before breakfast fluticasone propion-salmeterol [Advair HFA] 115-21 mcg/actuation HFA aerosol inhaler 2 puff inhalation BID PRN (Reason: Shortness Of Breath) Qty: 12 5RF albuterol sulfate 90 mcg/actuation HFA aerosol inhaler 1 puff INHALATION Q6H PRN (Reason: Shortness Of Breath) Qty: 8.5 2RF (DME) FreeStyle Hilda 3 Sensor Device See Rx Instructions .ROUTE .COMPLEX Qty: 6 0RF Dose Instruction: CHANGE SENSOR EVERY 14 DAYS Rx Instructions: CHANGE SENSOR EVERY 14 DAYS spironolactone 25 mg tablet 25 mg PO DAILY PRN (Reason: Edema) Qty: 90 1RF (DME) lancets [Accu-Chek Softclix Lancets] Misc See Rx Instructions .ROUTE .COMPLEX Qty: 400 3RF Dose Instruction: USE DIRECTED 4 TIMES A DAY Rx Instructions: USE DIRECTED 4 TIMES A DAY Nurtec ODT 75 mg tablet,disintegrating See Rx Instructions .ROUTE .COMPLEX Qty: 14 4RF Dose Instruction: Dissolve 1 tablet by mouth once daily as needed for migraine headache. Rx Instructions: Dissolve 1 tablet by mouth once daily as needed for migraine headache. promethazine 50 mg tablet See Rx Instructions .ROUTE .COMPLEX Qty: 60 0RF Dose Instruction: Take 1 tablet by mouth twice daily as needed for nausea and vomiting. Rx Instructions: Take 1 tablet by mouth twice daily as needed for nausea and vomiting. estradiol 1 mg tablet 1 mg PO DAILY Rx Instructions: Take 1 tablet by mouth every day nadolol 40 mg tablet 40 mg PO DAILY PRN (Reason: Hypertension) Rx Instructions: Take 1 tablet by mouth every day hydrocortisone 10 mg tablet 10 mg PO TID Rx Instructions: Take 1 tablet by mouth 3 times a day fenofibrate 54 mg tablet 54 mg PO DAILY Rx Instructions: Take 1 tablet by mouth daily esomeprazole magnesium 40 mg capsule,delayed release(DR/EC) 40 mg PO DAILY midodrine 5 mg tablet 5 mg PO TID 30 Days Qty: 60 0RF Discharge Orders: Discharge ED (Routine); Ordered 07/06/24 Ordered By: Kiera Menendez Referrals: Munir Chan DO [Physician] - 1-3 days Neda Hurt FNP [Primary Care Provider] - Discharge Diet: Usual diet Discharge Activity: Increase activity as tolerated Patient Instructions: Using Oxygen at Home (ED) Activity Restrictions/Additional Instructions: Thank you for choosing [facility] for your healthcare needs today. Please realize this is an emergency room and that we are providing you with a medical screening exam and this may not be complete and all inclusive of all the testing and or work up that you may need to determine your ailment or severity of your illness. You have been screened and evaluated and felt safe for discharge. Health conditions do change or evolve sometimes and as such it is important that you follow up with your Primary Doctor to be re checked, 3-5 days is a general good time frame for follow up. You are always welcome to return to the ED for re assessment if your symptoms are worsening or you have new concerns Coding Level of Care Code ED [employer]plane [employer] for Carter Segovia
[2024-07-06] MEDS: HYDROcodone-acetaminophen 10-325 mg Tablet 1 TAB PO (14:46)
[2024-07-06 16:44] VITALS: BP 104/76; PULSE 89; RESP 18; O2SAT 98
== END 2024-07-06 15:30 | disposition home or self-care (01) ==
PROVIDERS: Emergency Provider Emergency Medicine; PCP Nurse Practitioner
DX: J96.11 Chronic respiratory failure with hypoxia (principal); G89.4 Chronic pain syndrome; L89.159 Pressure ulcer of sacral region, unspecified stage; I10 Essential (primary) hypertension; E27.1 Primary adrenocortical insufficiency; Z79.4 Long term (current) use of insulin; Z79.85 Long-term (current) use of injectable non-insulin antidiabetic drugs
CPT/HCPCS: 99283

== ENCOUNTER → 2024-07-13 15:01 | Outpatient (BNVA) | payer MEDICARE, MEDICAID, SELFPAY | PROVIDERS: PCP Nurse Practitioner; Visit Provider Orthopaedic Surgery | DX: Z98.1 Arthrodesis status (principal); M48.062 Spinal stenosis, lumbar region with neurogenic claudication | CPT/HCPCS: 72100; 99213 ==

== ENCOUNTER 2024-07-26 14:25 | Inpatient (IN) | payer MEDICARE, MEDICAID, SELFPAY ==
[2024-07-26] VITALS (7 sets, daily range): BP systolic 81–98; BP diastolic 54–69; PULSE 70–91; RESP 16–17; TEMP 36.6–36.7; O2SAT 93–100; BMI 16.2; BMI 16.5
--- NOTE | 2024-07-26 14:31 | ECG_ITS ---
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 Measurements Intervals [place] Rate: 90 P: 54 [place]: 126 QRS: 48 QRSD: 97 T: 66 QT: 381 QTc: 467 Interpretive Statements SINUS RHYTHM WITH OCCASIONAL SUPRAVENTRICULAR PREMATURE COMPLEXES POSSIBLE LATERAL MYOCARDIAL INFARCTION , PROBABLY OLD [30 ms Q WAVE IN I/aVL/V5/V6] Compared to ECG 01/31/2024 12:23:17 Occasional PAC no present Electronically Signed On 07-26-2024 16:48:14 CDT by Nico Morales M.D. [email or web address]
--- NOTE | 2024-07-26 14:36 | ED_ITS ---
HPI - General Adult 2 General: Chief complaint: General Medical Stated complaint: HYPOTENSIVE Time Seen by Provider: 07/26/24 14:29 History of Present Illness: 59-year-old female presents to the emerg ency room by her direction of her primary care physician for hypotension. 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 She developed a large sacral ulcer from laying on her back now has been laying on her right side has an pressure ulcer in her ear on her right hip and the medial aspect of her left knee. Patient tells me that she gets up she showers she walks around outside however report from me as EMS as they have been called for lift assist multiple times. Patient is cachectic has a BMI of 16 she has a significant other who functions as her Caregiver and evidently is not able to lift her. EMS states she has been bedbound for months. She has temporal wasting. She is unable to explain to me why she has not been active or what is kept her from being active other than she said she is very tired. She does have a history of Gianni's which may be contributing as worsens her surgery. She also told EMS that Dr. Nolasco is stopped giving her narcotics postoperatively. She is on hydrocortisone 10 mg 3 times a day. Associated symptoms: Deny chest pain, dyspnea or rash Related Data Home Medications Medication Instructions Recorded Confirmed ascorbic acid (vitamin C) 1,000 mg 500 mg PO DAILY 07/20/23 07/26/24 tablet (Vitamin C With Tiffany Hips) epinephrine 0.125 mg/actuation 2 puff inhalation BID PRN Allergy 07/20/23 07/26/24 aerosol inhaler (Primatene Mist) Symptoms estradiol 1 mg tablet 1 mg PO DAILY 02/22/24 07/26/24 fenofibrate 54 mg tablet 54 mg PO DAILY 02/22/24 07/26/24 hydrocortisone 10 mg tablet 10 mg PO TID 02/22/24 07/26/24 nadolol 40 mg tablet 40 mg PO DAILY PRN Hypertension 02/22/24 07/26/24 esomeprazole magnesium 40 mg 40 mg PO DAILY 02/24/24 07/26/24 capsule,delayed release promethazine 50 mg tablet 50 mg PO BID 07/26/24 07/26/24 Previous Rx's Medication Instructions Recorded Oxygen-home #1 ea 08/23/23 Bedside commode #1 10/25/23 Rollinator #1 10/25/23 Bath mat #1 ea 11/03/23 Shower rails #1 11/03/23 Shower chair #1 11/11/23 pen needle, diabetic 32 gauge x #300 ea 11/16/23 (TRUEplus Pen Needle) ipratropium 0.5 mg-albuterol 3 mg See Rx Instructions .Route 11/19/23 (2.5 mg base)/3 mL nebulization .COMPLEX #360 mL soln blood sugar diagnostic (Infinity #450 ea 11/23/23 Test strips) blood-glucose meter (Infinity #1 ea 12/03/23 Meter Kit) lancets 28 gauge (Safety Lancets) #100 ea 12/03/23 insulin lispro 100 unit/mL 10 unit (0.1 mL) SUBCUT TID #15 mL 12/27/23 subcutaneous pen (Humalog KwikPen (U-100) Insulin) pen needle, diabetic 32 gauge x #450 ea 12/27/2309/30 (BD Ultra-Fine Micro Pen Needle) amitriptyline 50 mg tablet 50 mg PO DAILY #90 tabs 01/07/24 duloxetine 60 mg capsule,delayed 60 mg PO DAILY #90 caps 01/07/24 release gabapentin 600 mg tablet 600 mg PO TID #270 tabs 01/07/24 levothyroxine 50 mcg tablet 50 mcg PO DAILY #90 tabs 01/07/24 (Synthroid) montelukast 10 mg tablet 10 mg PO DAILY #90 tabs 01/07/24 naloxegol 25 mg tablet (Movantik) 25 mg PO QAM #90 tabs 01/07/24 atorvastatin 40 mg tablet 40 mg PO DAILY #90 tabs 01/13/24 semaglutide 2 mg/dose (8 mg/3 mL) See Rx Instructions .Route 02/10/24 subcutaneous pen injector (Ozempic) .COMPLEX #6 mL topiramate 100 mg tablet 100 mg PO BID #180 tabs 02/15/24 midodrine 5 mg tablet 5 mg PO TID 30 days #60 tabs 02/25/24 morphine 15 mg immediate release 15 mg PO Q6H PRN Pain 7 days #30 03/02/24 tablet tabs furosemide 20 mg tablet 20 mg PO DAILY #90 tabs 03/10/24 naproxen 375 mg tablet 375 mg PO BID PRN pain #180 tabs 03/10/24 venlafaxine 75 mg capsule,extended 75 mg PO QAM 90 days #90 caps 03/23/24 release 24 hr albuterol sulfate 2.5 mg/3 mL See Rx Instructions .Route 03/25/24 (0.083 %) solution for nebulization .COMPLEX #180 mL budesonide 160 mcg-glycopyr 9 2 inh inhalation BID #10.7 grams 03/27/24 mcg-formot 4.8 mcg/actuation HFA inhaler (Breztri Eletrogóesphere) blood sugar diagnostic (Accu-Chek #100 strips 03/31/24 Guide test strips) blood-glucose meter (Accu-Chek #1 ea 03/31/24 Guide Glucose Meter) blood-glucose meter,continuous #1 ea 03/31/24 (FreeStyle Hilda 3 [place]) fluticasone propionate 50 1 spray intranasal DAILY #16 grams 03/31/24 mcg/actuation nasal spray,suspension trazodone 100 mg tablet 100 mg PO .qhs 30 days #30 tabs 04/03/24 zolpidem 10 mg tablet 10 mg PO .qhs insomnia #30 tabs 04/03/24 onabotulinumtoxinA 100 unit 155 unit IM .Q28 days #2 ea 04/12/24 solution for injection (Botox) albuterol sulfate 90 mcg/actuation 1 puff inhalation Q6H PRN 04/15/24 aerosol inhaler Shortness Of Breath #8.5 grams azelastine 0.05 % eye drops 1 drp ophthalmic (eye) BID #6 mL 04/15/24 linaclotide 145 mcg capsule 145 mcg PO DAILY #90 caps 04/15/24 (Linzess) blood-glucose sensor (FreeStyle #6 ea 04/19/24 Hilda 3 Sensor device) spironolactone 25 mg tablet 25 mg PO DAILY PRN Edema #90 tabs 05/04/24 lancets (Accu-Chek Softclix #400 ea 06/17/24 Lancets) rimegepant 75 mg disintegrating See Rx Instructions .Route 06/30/24 tablet (Nurtec ODT) .COMPLEX #14 tabs diazepam 5 mg tablet 5 mg PO TID PRN muscle spasm 30 07/10/24 days #90 tabs Allergies Allergy/AdvReac Type Severity Reaction Status Date / Time No Known Allergies Allergy Verified 07/13/24 15:34 Review of Systems 2 Const: Reports: change in appetite, change in weight and fatigue; Denies: fever(s) or chills Card: Denies: chest pain Resp: Denies: dyspnea GI: Denies: abdominal pain : Denies: dysuria, urinary frequency or urinary urgency Musc: Reports: back pain; Denies: neck pain Skin/Breast: Denies: rash PFSH ED 2 PFSH: Medical History Multiple falls [place]'s disease Hypertension, portal Psychiatric care Surgical History History of fusion of lumbar spine History of laminectomy In right HIP History of hip surgery Right hip History of mastectomy BILATERAL History of total adrenalectomy History of cholecystectomy History of hysterectomy Family History Mother Cancer BREAST Father Cancer LUNG Grandmother Cancer MATERNAL- BREAST Family/Other Cancer Grandfather Cancer PATERNAL- LUNG Sister Cancer BREAST Denies family history of Clotting disorder Heart disease Chronic kidney disease (CKD) Bleeding disorder Thyroid disease Stroke Social History Smoking and tobacco/nicotine status: unknown if used tobacco/nicotine Alcohol intake: never Female Reproductive History: Para: 4 Physical Exam 2 Const: GENERAL APPEARANCE: cooperative ORIENTATION/CONSCIOUSNESS: Yes awake, Yes oriented to person, Yes oriented to place and Yes oriented to time HENMT: COMMON NORMALS: normocephalic, atraumatic and hearing grossly normal bilaterally HEAD & SCALP: normocephalic and atraumatic Resp: COMMON NORMALS: normal respiratory effort, No retractions, No use of accessory muscles and clear to auscultation bilaterally AUSCULTATION: clear to auscultation bilaterally Cardio: COMMON NORMALS: regular rate, regular rhythm and No murmurs present (Cardio) RATE: regular rate RHYTHM: regular rhythm GI: COMMON NORMALS: Soft to palpation and No hepatosplenomegaly present A USCULTATION: Yes normoactive bowel sounds PALPATION: Yes Soft to palpation, No Tenderness to palpation present (GI), No Guarding due to palpation present (GI) and Yes No hepatosplenomegaly present Extremity: COMMON NORMALS: normal to inspection, capillary refill normal, no clubbing, cyanosis or edema, no calf tenderness and no pedal edema Neuro: SENSORIUM/ORIENTATION: Yes oriented to person, Yes oriented to place and Yes oriented to time Skin: COMMON NORMALS: no rashes or lesions noted GENERAL SKIN EXAM: no rashes or lesions noted Course 2 Vital Signs: Vital signs: Vital Signs Temperature 98.0 F 07/26/24 14:26 Pulse Rate 91 07/26/24 14:26 Respiratory Rate 17 07/26/24 14:26 Blood Pressure 81/54 07/26/24 14:26 Pulse Oximetry 100 07/26/24 14:26 Oxygen Delivery Me thod Nasal Cannula 07/26/24 14:26 Oxygen Flow Rate 2 07/26/24 14:26 MDM - General Adult Medical Decision Making Patient mildly anemic has significant weight loss however concerned about the sacral decub's and her lack of activity. Will admit for evaluation of her medication last and evaluation of her weight loss as well as further evaluation of her Gianni's she is significantly hypotensive as well will need to monitor urine output closely discussed with Dr. Fox. Patient is receiving IV fluids. Medical Records I reviewed the patient's medical records. Lab Data I reviewed the patient's lab results. 07/26/24 15:13 07/26/24 15:13 Radiology Impressions Abdomen/Pelvis CT 07/26/24 14:59 IMPRESSION: 1. Moderate intrahepatic biliary ductal dilation, which may be related to cholecystectomy status. Consider follow-up with contrast-enhanced MRCP to exclude obstructing lesion. 2. Large colonic stool burden. COMMENTS: Consistent with the [employer]'s Incidental Findings Committee white paper (J Am David Radiol 2018): Any incidental renal lesion less than 1 cm or classified as too small to characterize, or any incidental cystic renal lesion characterized as simple-appearing, is likely benign. No follow-up imaging is recommended for these lesions per consensus recommendations based on imaging criteria. Chest X-Ray 07/26/24 14:59 IMPRESSION: No acute findings. Laboratory Results WBC 7.91 10^3/uL (3.29-11.43) 07/26/24 15:13 RBC 3.77 10^6/uL (3.85-5.65) L 07/26/24 15:13 Hgb 10.40 g/dL (11.27-16.99) L 07/26/24 15:13 Hct 34.1 % (36-47) L 07/26/24 15:13 MCV 90.5 fl (85-98) 07/26/24 15:13 MCH 27.6 pg (27-33) 07/26/24 15:13 MCHC 30.5 g/dL (30-55) 07/26/24 15:13 RDW 13.7 % (12.1-15.1) 07/26/24 15:13 Plt Count 306 10^3/cmm (157-399) 07/26/24 15:13 MPV 9.5 fL (7.4-10.4) 07/26/24 15:13 Neut % (Auto) 73.8 % 07/26/24 15:13 Lymph % (Auto) 15.8 % 07/26/24 15:13 Hitchcock % (Auto) 8.1 % 07/26/24 15:13 Eos % (Auto) 1.4 % 07/26/24 15:13 Baso % (Auto) 0.5 % 07/26/24 15:13 Neut # (Auto) 5.84 10^3/uL (1.8-7.7) 07/26/24 15:13 Lymph # (Auto) 1.3 10^3/uL (0.8-4.8) 07/26/24 15:13 Hitchcock # (Auto) 0.6 10^3/uL (0.2-0.9) 07/26/24 15:13 Eos # (Auto) 0.1 10^3/uL (0.0-0.8) 07/26/24 15:13 Baso # (Auto) 0.0 10^3/uL (0.0-0.1) 07/26/24 15:13 Nucleated RBC % (auto) 0 % 07/26/24 15:13 Nucleated RBCs # 0.0 /100WBC 07/26/24 15:13 Sodium 139 mmol/L (136-145) 07/26/24 15:13 Potassium 3.9 mmol/L (3.5-5.1) 07/26/24 15:13 Chloride 105 mmol/L (98-107) 07/26/24 15:13 Carbon Dioxide 24 mmol/L (22-29) 07/26/24 15:13 Anion Gap 13.9 (5-19) 07/26/24 15:13 BUN 15 mg/dL (6-20) 07/26/24 15:13 Creatinine 0.7 mg/dL (0.5-0.9) 07/26/24 15:13 GFR Calculation 86.2 mL/min (90-130) L 07/26/24 15:13 Glucose 85 mg/dL (65-115) 07/26/24 15:13 POC Glucose 77 mg/dL (70-110) 07/26/24 14:45 Calculated Osmolality 288 mOsm/kg (285-295) 07/26/24 15:13 Lactic Acid 1.1 mmol/L (0.5-2.2) 07/26/24 15:13 Calcium 8.7 mg/dL (8.5-10.5) 07/26/24 15:13 Total Bilirubin 0.3 mg/dL (0.15-1.2) 07/26/24 15:13 AST 21 U/L (0-32) 07/26/24 15:13 ALT 7 U/L (0-33) 07/26/24 15:13 Alkaline Phosphatase 123 U/L (35-105) H 07/26/24 15:13 Total Protein 5.7 g/dL (6.6-8.7) L 07/26/24 15:13 Albumin 3.1 g/dL (3.5-5.2) L 07/26/24 15:13 Globulin 2.6 g/dL (1.3-4.6) 07/26/24 15:13 Lipase 9 U/L (13-60) L 07/26/24 15:13 Random Cortisol 16.77 ug/dL (2.47-19.5) 07/26/24 15:13 Salicylates < 0.3 mg/dL (3-10) L 07/26/24 15:13 Acetaminophen < 5.0 ug/mL (10-30) L 07/26/24 15:13 Ethyl Alcohol < 10 mg/dL (0-10) 07/26/24 15:13 All radiology interpretation(s) finalized by discharge Discharge Plan Discharge Patient Disposition: Admitted As Inpatient Clinical Impression: Adrenal insufficiency, Hypothyroid, Hypotension, Decubitus ulcer, Unexplained weight loss Condition: Stable Prescriptions: No Action (DME) Rollinator See Rx Instructions .Route .MEDSUPPLY Qty: 1 0RF Rx Instructions: As directed (DME) Bedside commode See Rx Instructions .Route .MEDSUPPLY Qty: 1 0RF Rx Instructions: As directed ascorbic acid (vitamin C) [Vitamin C With Tiffany Hips] 1,000 mg tablet 500 mg PO DAILY Primatene Mist 0.125 mg/actuation HFA aerosol inhaler 2 puff inhalation BID PRN (Reason: Allergy Symptoms) Rx Instructions: may repeat once after 1 minute ipratropium-albuterol 0.5 mg-3 mg(2.5 mg base)/3 mL solution for nebulization See Rx Instructions .ROUTE .COMPLEX Qty: 360 5RF Dose Instruction: Inhale 1 vial via nebulizer every 6 hours Rx Instructions: Inhale 1 vial via nebulizer every 6 hours as needed. (DME) Oxygen-home See Rx Instructions .Route .MEDSUPPLY Qty: 1 0RF Rx Instructions: 2L of oxygen per NC continuous (DME) Bath mat See Rx Instructions .Route .MEDSUPPLY Qty: 1 0RF Rx Instructions: As directed (DME) Shower rails See Rx Instructions .Route .MEDSUPPLY Qty: 1 0RF Rx Instructions: As directed (DME) Shower chair See Rx Instructions .Route .MEDSUPPLY Qty: 1 0RF Rx Instructions: As directed (DME) pen needle, diabetic [TRUEplus Pen Needle] 32 gauge x 5/32 needle See Rx Instructions .ROUTE .COMPLEX Qty: 300 1RF Dose Instruction: Use subcutaneously to inject novolog 3 times a day Rx Instructions: Use subcutaneously to inject novolog 3 times a day (DME) Infinity Test strips Strip See Rx Instructions .ROUTE .MEDSUPPLY Qty: 450 0RF Rx Instructions: As directed (DME) blood-glucose meter [Infinity Meter Kit] Kit See Rx Instructions .Route Qty: 1 0RF Rx Instructions: As directed (DME) lancets [Safety Lancets] 28 gauge misc See Rx Instructions .ROUTE .MEDSUPPLY Qty: 100 0RF Rx Instructions: As directed insulin lispro [Humalog KwikPen Insulin] 100 unit/mL insulin pen 10 unit SUBCUT TID Qty: 15 1RF Rx Instructions: PER SLIDING SCALE (DME) pen needle, diabetic [BD Ultra-Fine Micro Pen Needle] 32 gauge x 1/4 needle See Rx Instructions .ROUTE .MEDSUPPLY Qty: 450 3RF Rx Instructions: 5 times daily amitriptyline 50 mg tablet 50 mg PO DAILY Qty: 90 2RF duloxetine 60 mg capsule,delayed release(DR/EC) 60 mg PO DAILY Qty: 90 2RF gabapentin 600 mg tablet 600 mg PO TID Qty: 270 2RF levothyroxine [Synthroid] 50 mcg tablet 50 mcg PO DAILY Qty: 90 2RF montelukast 10 mg tablet 10 mg PO DAILY Qty: 90 2RF Movantik 25 mg tablet 25 mg PO QAM Qty: 90 1RF Rx Instructions: must be taken on empty stomach; no food 1 hr after or 2-3 hrs before dose atorvastatin 40 mg tablet 40 mg PO DAILY Qty: 90 2RF Ozempic 2 mg/dose (8 mg/3 mL) pen injector See Rx Instructions .ROUTE .COMPLEX Qty: 6 5RF Dose Instruction: INJECT SUBCUTANEOUSLY 2 MG EVERY WEEK Rx Instructions: INJECT SUBCUTANEOUSLY 2 MG EVERY WEEK ON FRIDAYS topiramate 100 mg tablet 100 mg PO BID Qty: 180 2RF morphine 15 mg tablet 15 mg PO Q6H PRN (Reason: Pain) 7 Days Qty: 30 0RF furosemide 20 mg tablet 20 mg PO DAILY Qty: 90 2RF naproxen 375 mg tablet 375 mg PO BID PRN (Reason: pain) Qty: 180 1RF venlafaxine 75 mg capsule,extended release 24hr 75 mg PO QAM 90 Days Qty: 90 3RF albuterol sulfate 2.5 mg /3 mL (0.083 %) solution for nebulization See Rx Instructions .ROUTE .COMPLEX Qty: 180 6RF Dose Instruction: Inhale 1 vial via nebulizer four times a day Rx Instructions: Inhale 1 vial via nebulizer four times a day as needed Breztri Aerosphere 160-9-4.8 mcg/actuation HFA aerosol inhaler 2 inh inhalation BID Qty: 10.7 3RF (DME) blood-glucose meter [Accu-Chek Guide Glucose Meter] Misc See Rx Instructions .ROUTE .COMPLEX Qty: 1 0RF Dose Instruction: USE DIRECTED Rx Instructions: USE DIRECTED (DME) FreeStyle [place]ilda 3 [place] [facility] [place] [facility] [place] Rx Instructions .ROUTE .COMPLEX Qty: 1 0RF Dose Instruction: USE DIRECTED Rx Instructions: USE DIRECTED fluticasone propionate 50 mcg/actuation spray,suspension 1 spray intranasal DAILY Qty: 16 6RF Rx Instructions: administer into each nostril (DME) Accu-Chek Guide test strips Strip See Rx Instructions .ROUTE .COMPLEX Qty: 100 0RF Dose Instruction: USE DIRECTED 4 TIMES DAILY Rx Instructions: USE DIRECTED 4 TIMES DAILY trazodone 100 mg tablet 100 mg PO .qhs 30 Days Qty: 30 6RF zolpidem 10 mg tablet 10 mg PO .qhs Qty: 30 3RF Botox 100 unit recon soln 155 unit IM .Q28 days Qty: 2 3RF azelastine 0.05 % drops 1 drp ophthalmic (eye) BID Qty: 6 3RF Rx Instructions: Instill 1 drop into both eyes twice day Linzess 145 mcg capsule 145 mcg PO DAILY Qty: 90 1RF Rx Instructions: Take 1 capsule by mouth 30 minutes before breakfast albuterol sulfate 90 mcg/actuation HFA aerosol inhaler 1 puff INHALATION Q6H PRN (Reason: Shortness Of Breath) Qty: 8.5 2RF (DME) FreeStyle Hilda 3 Sensor Device See Rx Instructions .ROUTE .COMPLEX Qty: 6 0RF Dose Instruction: CHANGE SENSOR EVERY 14 DAYS Rx Instructions: CHANGE SENSOR EVERY 14 DAYS spironolactone 25 mg tablet 25 mg PO DAILY PRN (Reason: Edema) Qty: 90 1RF (DME) lancets [Accu-Chek Softclix Lancets[place] [facility] [place] Rx Instructions .ROUTE .COMPLEX Qty: 400 3RF Dose Instruction: USE DIRECTED 4 TIMES A DAY Rx Instructions: USE DIRECTED 4 TIMES A DAY Nurtec ODT 75 mg tablet,disintegrating See Rx Instructions .ROUTE .COMPLEX Qty: 14 4RF Dose Instruction: Dissolve 1 tablet by mouth once daily as needed for migraine headache. Rx Instructions: Dissolve 1 tablet by mouth once daily as needed for migraine headache. diazepam 5 mg tablet 5 mg PO TID PRN (Reason: muscle spasm) 30 Days Qty: 90 0RF estradiol 1 mg tablet 1 mg PO DAILY nadolol 40 mg tablet 40 mg PO DAILY PRN (Reason: Hypertension) hydrocortisone 10 mg tablet 10 mg PO TID Rx Instructions: Take 1 tablet by mouth 3 times a day fenofibrate 54 mg tablet 54 mg PO DAILY Rx Instructions: Take 1 tablet by mouth daily esomeprazole magnesium 40 mg capsule,delayed release(DR/EC) 40 mg PO DAILY midodrine 5 mg tablet 5 mg PO TID 30 Days Qty: 60 0RF promethazine 50 mg tablet 50 mg PO BID Referrals: Neda Hurt FNP [Primary Care Provider] - Coding Level of Care Code ED Distribution Field Engineer for Eding Juliette
[2024-07-26 14:49] LABS: Glucose Point of Care 77 mg/dL (70-110)
--- NOTE | 2024-07-26 14:59 | XRR_ITS ---
PROCEDURE INFORMATION: Exam: XR Chest Exam date and time: 07/26/2024 3:21 PM Age: 59 years old Clinical indication: Cough and dyspnea; Additional info: Dyspnea/cough TECHNIQUE: Imaging protocol: Radiologic exam of the chest. Views: 1 view. COMPARISON: CR XR chest 2V* [id number] 08/17/2023 1:43 PM FINDINGS: Lungs: Stable calcified granuloma in the periphery of the left mid lung. No focal consolidation. Pleural spaces: No sizable pleural effusion. No pneumothorax. Heart/Mediastinum: Unremarkable cardiomediastinal silhouette. Bones/joints: Partially imaged lower lumbar fusion hardware. Soft tissues: Surgical clips in the left axillary region. Other findings: Clips in the right upper quadrant consistent with prior cholecystectomy. XR/XR chest 1V portable [id number] IMPRESSION: No acute findings.
--- NOTE | 2024-07-26 14:59 | CTR_ITS ---
PROCEDURE INFORMATION: Exam: CT Abdomen And Pelvis With Contrast Exam date and time: 07/26/2024 4:01 PM Age: 59 years old Clinical indication: Abdominal pain; Additional info: Abd pain TECHNIQUE: Imaging protocol: Computed tomography of the abdomen and pelvis with contrast. Radiation optimization: All CT scans at this facility use at least one of these dose optimization techniques: automated exposure control; mA and/or kV adjustment per patient size (includes targeted exams where dose is matched to clinical indication); or iterative reconstruction. Contrast material: OMNI 350; Contrast volume: 75 ml; Contrast route: INTRAVENOUS (IV); COMPARISON: CR XR hip RT 2-3V wo/w pel* [id number] 10/27/2023 11:35 AM RADIATION DOSE METRICS: Total DLP (mGy-cm): 406.55 FINDINGS: Lungs: The visualized portions of the lungs are unremarkable. Liver: The liver is unremarkable. Gallbladder and biliary ducts: Moderate intrahepatic biliary ductal dilation. The common bile duct measures up to 1.0 cm, with smooth narrowing to the level of the ampulla. There has been a cholecystectomy. Pancreas: The pancreas is unremarkable. Spleen: The spleen is unremarkable. Adrenal glands: The adrenal glands are unremarkable. Kidneys and ureters: Punctate bilateral nonobstructive renal stones. No hydronephrosis. There are left renal subcentimeter hypodensities, too small to properly characterize. The kidneys are otherwise unremarkable. Stomach and bowel: Status post partial gastrectomy. Large colonic stool burden. There is no bowel wall thickening. No bowel obstruction. Appendix: Appendix is not identified. No findings to suggest acute appendicitis. Intraperitoneal space: No significant peritoneal free fluid. No free peritoneal air. Vasculature: The vasculature demonstrates diffuse mild atherosclerotic calcification. No aneurysm. Lymph nodes: No enlarged lymph nodes by size criteria. Urinary bladder: The bladder is distended. Reproductive: There has been a hysterectomy. Bones/joints: The spine demonstrates mild degenerative changes at multiple levels. Lumbosacral fusion and interbody disc spacers spanning L2-S2. Pelvic fixation also noted. Soft tissues: There are bilateral breast implants. Postsurgical changes of the anterior abdominal wall. CT/CT abdomen pelvis w con* [id number] IMPRESSION: 1. Moderate intrahepatic biliary ductal dilation, which may be related to cholecystectomy status. Consider follow-up with contrast-enhanced MRCP to exclude obstructing lesion. 2. Large colonic stool burden. COMMENTS: Consistent with the [employer]'s Incidental Findings Committee white paper (J Am David Radiol 2018): Any incidental renal lesion less than 1 cm or classified as too small to characterize, or any incidental cystic renal lesion characterized as simple-appearing, is likely benign. No follow-up imaging is recommended for these lesions per consensus recommendations based on imaging criteria.
--- NOTE | 2024-07-26 15:20 | PC.PHAR ---
patient doesnt handle her own meds and uses [facility] pill [facility] for all her medications other than the c2's of course. called and verified each and every medication with pharmacy all meds were sent out on 07-04-24 to patients home to start using for the month 07/14/24 through 08/12/24. only meds removed were sumatriptan and tizandine as they were discontinued per pharmacy notes
[2024-07-26 15:25] LABS: Basophils % 0.5 %; Eosinophils # 0.1 10^3/uL (0.0-0.8); Eosinophils % 1.4 %; Hematocrit 34.1 % (36-47); Lymphocytes # 1.3 10^3/uL (0.8-4.8); Lymphocytes % 15.8 %; Mean Corpuscular HGB Conc 30.5 g/dL (30-55); Mean Corpuscular Hemoglobin 27.6 pg (27-33); Mean Corpuscular Volume 90.5 fl (85-98); Mean Platelet Volume 9.5 fL (7.4-10.4); Monocytes # 0.6 10^3/uL (0.2-0.9); Monocytes % 8.1 %; Neutrophils # 5.84 10^3/uL (1.8-7.7); Neutrophils % 73.8 %; Nucleated Red Blood Cells % 0 %; Platelet Count 306 10^3/cmm (157-399); Red Blood Count 3.77 10^6/uL (3.85-5.65); Red Cell Distribution Width 13.7 % (12.1-15.1); White Blood Count 7.91 10^3/uL (3.29-11.43)
[2024-07-26 15:44] LABS: Alanine Aminotransferase 7 U/L (0-33); Albumin Level 3.1 g/dL (3.5-5.2); Alkaline Phosphatase 123 U/L (35-105); Anion Gap 13.9 (5-19); Aspartate Amino Transferase 21 U/L (0-32); Blood Urea Nitrogen 15 mg/dL (6-20); Calcium 8.7 mg/dL (8.5-10.5); Carbon Dioxide 24 mmol/L (22-29); Chloride 105 mmol/L (98-107); Creatinine Clr Calc Pharmacy 69.8431; Globulin 2.6 g/dL (1.3-4.6); Glomerular Filtration Rate 86.2 mL/min (90-130); Glucose 85 mg/dL (65-115); Osmolality Calculated 288 mOsm/kg (285-295); Potassium 3.9 mmol/L (3.5-5.1); Sodium 139 mmol/L (136-145); Total Bilirubin 0.3 mg/dL (0.15-1.2); Total Protein 5.7 g/dL (6.6-8.7)
[2024-07-26 15:55] LABS: Cortisol Random 16.77 ug/dL (2.47-19.5)
[2024-07-26] MEDS: iohexol 350 mg/mL 500 mL Btl (per mL) IV (16:05)
[2024-07-26 16:15] LABS: Lactic Sepsis W/Reflex 1.1 mmol/L (0.5-2.2)
[2024-07-26 16:18] LABS: Acetaminophen < 5.0 ug/mL (10-30); Alcohol Level < 10 mg/dL (0-10); Lipase 9 U/L (13-60); Salicylate < 0.3 mg/dL (3-10)
[2024-07-26] MEDS: hydrocortisone 100 mg/2 mL SDV 50 MG IVP (16:26)
[2024-07-26] MEDS: sodium chloride 0.9% 1,000 ML 999 ML IV (16:26)
[2024-07-26 17:32] LABS: Erythrocyte Sedimentation Rate 35 mm/hr (0-15)
[2024-07-26 17:40] LABS: Creatine Phosphokinase 553 U/L (26-192)
--- NOTE | 2024-07-26 17:53 | CTR_ITS ---
PROCEDURE INFORMATION: Exam: CT Lumbar Spine Without Contrast Exam date and time: 07/26/2024 4:01 PM Age: 59 years old Clinical indication: Injury or trauma; Other: Decubitus ulcer; Additional info: Sacral decubitus ulcer, TECHNIQUE: Imaging protocol: Computed tomography of the lumbar spine without contrast. Radiation optimization: All CT scans at this facility use at least one of these dose optimization techniques: automated exposure control; mA and/or kV adjustment per patient size (includes targeted exams where dose is matched to clinical indication); or iterative reconstruction. COMPARISON: MR lumbar spine wo con* [id number] 01/07/2024 12:06 PM RADIATION DOSE METRICS: Total DLP (mGy-cm): 0 FINDINGS: Bones/joints: Lumbosacral posterior fusion hardware spanning L2-S2, with multilevel interbody disc spacers from L2-L3 through L5-S1. There is also anterior fusion with an anterior plate at L2-L3, as well as pelvic hardware transfixing bilateral sacroiliac joints. There is generalized bone loss and demineralization. There is straightening of the normal lumbar lordosis, likely combination of degenerative and postsurgical. There are associated postoperative changes, including paraspinal heterotopic ossification, as well as midline dorsal scarring. Assessment of the spinal canal spanning from L2-S1 is limited due to extensive beam hardening from hardware. There is no discrete organized fluid collection. There is no evidence of acute fracture. Soft tissues: See above. There is a soft tissue ulceration adjacent to the coccyx with subcutaneous locules of gas and fluid tracking to the level of the coccyx, better appreciated on the recent CT of the abdomen/pelvis series 6, image 30). Other findings: CT of the abdomen/pelvis is reported separately. CT/CT lumbar spine recon [id number] IMPRESSION: 1. Lumbosacral fusion spanning L2-S2, with multilevel interbody disc spacers, anterior fusion of L2-L3 and pelvic/sacroiliac fixation. Associated chronic postoperative changes. No acute findings. No acute fracture or organized fluid collection. 2. Sacral ulceration, with subcutaneous gas and fluid tracking to the level of the coccyx. No discrete osseous erosion, although fluid reaching the coccyx raises suspicion for possible osteomyelitis. 3. CT of the abdomen/pelvis is reported separately.
[2024-07-26 17:58] LABS: C Reactive Protein 6.9 mg/L (0.0-4.9)
--- NOTE | 2024-07-26 18:00 | P.HP_ITS ---
Providers/Chief Complaint 2 Primary Care Provider: Neda Hurt APN Chief Complaint: HYPOTENSIVE History of Present Illness Edwin Gama is a 59 year old female with a past medical history of adrenal insufficiency, on midodrine, hydrocortisone, recent history of laminectomy, history of depression, headaches, multiple falls, asthma, who presents [facility] due to weakness, fatigue, malaise, poor appetite, falls, multiple sacral DTI's. Currently patient is alert oriented x 3, following all commands, her biggest complaint is pain over her sacral DTI, DTI on her knee, DTI on her ear, due to being in bed for a prolonged period of time.. Patient tells me that she is generally weak, has unsteadiness on her feet, she has had multiple falls she has generalized pain, especially over sacral DTI, she is more bedbound, she tries to reposition she can ambulate, she has had a poor appetite, denies any fevers, does report chills, does report nausea, no vomiting, does report poor appetite, reports weight loss, Review of Systems 2 Const: Reports: chills, body aches, fatigue and malaise Eyes: Denies: change in vision ENMT: Reports: ear or mastoid pain Card: Denies: chest pain Resp: Denies: dyspnea or non-productive cough GI: Reports: abdominal pain and nausea; Denies: vomiting : Reports: flank pain Musc: Reports: back pain, extremity pain and muscle weakness Skin/Breast: Reports: new lesions and non-healing lesions Neuro: Reports: weakness in extremities and dizziness; Denies: headache(s) Psych: Reports: sleeping more Endo: Denies: polyuria Neo/Lymph: Reports: easy bruising Medications/Allergies Home Medications Medication Instructions Recorded Confirmed Last Taken Type ascorbic acid (vitamin C) 1,000 mg 500 mg PO DAILY 07/20/23 07/26/24 02/01/24 History tablet (Vitamin C With Tiffany Hips) epinephrine 0.125 mg/actuation 2 puff inhalation BID PRN Allergy 07/20/23 07/26/24 Unknown History aerosol inhaler (Primatene Mist) Symptoms Oxygen-home #1 ea 08/23/23 07/26/24 Unknown Rx Bedside commode #1 ea 10/25/23 07/26/24 Unknown Rx Rollinator #1 ea 10/25/23 07/26/24 Unknown Rx Bath mat #1 ea 11/03/23 07/26/24 Unknown Rx Shower rails #1 ea 11/03/23 07/26/24 Unknown Rx Shower chair #1 ea 11/11/23 07/26/24 Unknown Rx pen needle, diabetic 32 gauge x #300 ea 11/16/23 07/26/24 Unknown Rx 5/32 (TRUEplus Pen Needle) ipratropium 0.5 mg-albuterol 3 mg See Rx Instructions .Route 11/19/23 07/26/24 Unknown Rx (2.5 mg base)/3 mL nebulization .COMPLEX #360 mL soln blood sugar diagnostic (Infinity #450 ea 11/23/23 07/26/24 Unknown Rx Test strips) blood-glucose meter (Infinity #1 ea 12/03/23 07/26/24 Unknown Rx Meter Kit) lancets 28 gauge (Safety Lancets) #100 ea 12/03/23 07/26/24 Unknown Rx insulin lispro 100 unit/mL 10 unit (0.1 mL) SUBCUT TID #15 mL 12/27/23 07/26/24 02/22/24 Rx subcutaneous pen (Humalog KwikPen (U-100) Insulin) pen needle, diabetic 32 gauge x #450 ea 12/27/23 07/26/24 Unknown Rx 1/4 (BD Ultra-Fine Micro Pen Needle) amitriptyline 50 mg tablet 50 mg PO DAILY #90 tabs 01/07/24 07/26/24 02/22/24 Rx duloxetine 60 mg capsule,delayed 60 mg PO DAILY #90 caps 01/07/24 07/26/24 02/08/24 Rx release gabapentin 600 mg tablet 600 mg PO TID #270 tabs 01/07/24 07/26/24 02/22/24 Rx levothyroxine 50 mcg tablet 50 mcg PO DAILY #90 tabs 01/07/24 07/26/24 02/22/24 Rx (Synthroid) montelukast 10 mg tablet 10 mg PO DAILY #90 tabs 01/07/24 07/26/24 02/22/24 Rx naloxegol 25 mg tablet (Movantik) 25 mg PO QAM #90 tabs 01/07/24 07/26/24 02/22/24 Rx atorvastatin 40 mg tablet 40 mg PO DAILY #90 tabs 01/13/24 07/26/24 02/08/24 Rx semaglutide 2 mg/dose (8 mg/3 mL) See Rx Instructions .Route 02/10/24 07/26/24 02/08/24 Rx subcutaneous pen injector (Ozempic) .COMPLEX #6 mL topiramate 100 mg tablet 100 mg PO BID #180 tabs 02/15/24 07/26/24 02/21/24 Rx estradiol 1 mg tablet 1 mg PO DAILY 02/22/24 07/26/24 02/22/24 History fenofibrate 54 mg tablet 54 mg PO DAILY 02/22/24 07/26/24 02/22/24 History hydrocortisone 10 mg tablet 10 mg PO TID 02/22/24 07/26/24 02/22/24 History nadolol 40 mg tablet 40 mg PO DAILY PRN Hypertension 02/22/24 07/26/24 02/22/24 History esomeprazole magnesium 40 mg 40 mg PO DAILY 02/24/24 07/26/24 02/23/24 History capsule,delayed release midodrine 5 mg tablet 5 mg PO TID 30 days #60 tabs 02/25/24 07/26/24 02/22/24 Rx morphine 15 mg immediate release 15 mg PO Q6H PRN Pain 7 days #30 03/02/24 07/26/24 Unknown Rx tablet tabs furosemide 20 mg tablet 20 mg PO DAILY #90 tabs 03/10/24 07/26/24 Unknown Rx naproxen 375 mg tablet 375 mg PO BID PRN pain #180 tabs 03/10/24 07/26/24 Unknown Rx venlafaxine 75 mg capsule,extended 75 mg PO QAM 90 days #90 caps 03/23/24 07/26/24 Unknown Rx release 24 hr albuterol sulfate 2.5 mg/3 mL See Rx Instructions .Route 03/25/24 07/26/24 Unknown Rx (0.083 %) solution for nebulization .COMPLEX #180 mL budesonide 160 mcg-glycopyr 9 2 inh inhalation BID #10.7 grams 03/27/24 07/26/24 Unknown Rx mcg-formot 4.8 mcg/actuation HFA inhaler (Breztri Aerosphere) blood sugar diagnostic (Accu-Chek #100 strips 03/31/24 07/26/24 Unknown Rx Guide test strips) blood-glucose meter (Accu-Chek #1 ea 03/31/24 07/26/24 Unknown Rx Guide Glucose Meter) blood-glucose meter,continuous #1 ea 03/31/24 07/26/24 Unknown Rx (FreeStyle Hilda 3 [place]) fluticasone propionate 50 1 spray intranasal DAILY #16 grams 03/31/24 07/26/24 Unknown Rx mcg/actuation nasal spray,suspension trazodone 100 mg tablet 100 mg PO .qhs 30 days #30 tabs 04/03/24 07/26/24 Unknown Rx zolpidem 10 mg tablet 10 mg PO .qhs insomnia #30 tabs 04/03/24 07/26/24 Unknown Rx onabotulinumtoxinA 100 unit 155 unit IM .Q28 days #2 ea 04/12/24 07/26/24 Unknown Rx solution for injection (Botox) albuterol sulfate 90 mcg/actuation 1 puff inhalation Q6H PRN 04/15/24 07/26/24 Unknown Rx aerosol inhaler Shortness Of Breath #8.5 grams azelastine 0.05 % eye drops 1 drp ophthalmic (eye) BID #6 mL 04/15/24 07/26/24 Unknown Rx linaclotide 145 mcg capsule 145 mcg PO DAILY #90 caps 04/15/24 07/26/24 Unknown Rx (Linzess) blood-glucose sensor (FreeStyle #6 ea 04/19/24 07/26/24 Unknown Rx Hilda 3 Sensor device) spironolactone 25 mg tablet 25 mg PO DAILY PRN Edema #90 tabs 05/04/24 07/26/24 Unknown Rx lancets (Accu-Chek Softclix #400 ea 06/17/24 07/26/24 Unknown Rx Lancets) rimegepant 75 mg disintegrating See Rx Instructions .Route 06/30/24 07/26/24 Unknown Rx tablet (Nurtec ODT) .COMPLEX #14 tabs diazepam 5 mg tablet 5 mg PO TID PRN muscle spasm 30 07/10/24 07/26/24 Unknown Rx days #90 tabs promethazine 50 mg tablet 50 mg PO BID 07/26/24 07/26/24 Unknown History Allergies Allergy/AdvReac Type Severity Reaction Status Date / Time No Known Allergies Allergy Verified 07/13/24 15:34 PFSH Acute 2 PFSH: Medical History Multiple falls [place]'s disease Hypertension, portal Psychiatric care Surgical History History of fusion of lumbar spine History of laminectomy In right HIP History of hip surgery Right hip History of mastectomy BILATERAL History of total adrenalectomy History of cholecystectomy History of hysterectomy Family History Mother Cancer BREAST Father Cancer LUNG Grandmother Cancer MATERNAL- BREAST Family/Other Cancer Grandfather Cancer PATERNAL- LUNG Sister Cancer BREAST Denies family history of Clotting disorder Heart disease Chronic kidney disease (CKD) Bleeding disorder Thyroid disease Stroke Social History Smoking and tobacco/nicotine status: unknown if used tobacco/nicotine Alcohol intake: never Female Reproductive History: Para: 4 Vitals/I&O/Wt Last Vital Signs Temp 98.0 F 07/26/24 14:26 Pulse 91 07/26/24 14:26 Resp 17 07/26/24 14:26 BP 81/54 07/26/24 14:26 Pulse Ox 100 07/26/24 14:26 O2 Del Method Nasal Cannula 07/26/24 14:26 O2 Flow Rate 2 07/26/24 14:26 Weight last 48 hrs Weight 49.895 kg Physical Exam 2 Const: COMMON NORMALS: no acute distress and patient oriented x3 OTHER: Evidence of severe muscle loss, bilateral temporal muscle wasting, fat pad exposed under bilateral clavicles, ribs, severe muscle loss bilateral thighs, bilateral arms HENMT: COMMON NORMALS: normocephalic HEAD & SCALP: normocephalic Neck/C-Spine: COMMON NORMALS: no JVD Resp: COMMON NORMALS: normal respiratory effort, No retractions, No use of accessory muscles and clear to auscultation bilaterally AUSCULTATION: clear to auscultation bilaterally Cardio: COMMON NORMALS: regular rate, regular rhythm, S1 normal heart sound present and S2 normal heart sound present RATE: regular rate RHYTHM: r egular rhythm HEART SOUNDS: S1 normal heart sound present and S2 normal heart sound present GI: COMMON NORMALS: Normal to inspection, nondistended, normoactive bowel sounds present, Soft to palpation and non-tender Extremity: COMMON NORMALS: no calf tenderness and no pedal edema Neuro: COMMON NORMALS: patient oriented x3 Psych: COMMON NORMALS: mental status grossly normal Skin: NARRATIVE SKIN EXAM: - Sacral DTI, 3 x 3 cm, with a black esc franny, possible bone exposed ? Right ear, DTI ? Right knee, DTI 1 x 1 cm Data 07/26/24 15:13 07/26/24 15:13 A&P Assessment and plan (1) Deep tissue injury: (2) Type 1 diabetes: (3) Adrenal insufficiency: (4) Hypothyroid: (5) Decubitus ulcer, lower back: (6) Heel ulceration: (7) Decubitus ulcer: (8) Multiple falls: (9) Cellulitis: (10) Low body mass index (BMI): (11) Severe protein-calorie malnutrition: (12) Physical deconditioning: (13) Muscle wasting: (14) Hypotension: (15) Adult failure to thrive: Plan Hypotension -Likely chronically from adrenal insufficiency as patient is on hydrocortisone and midodrine -However given her sacral DTI sent with cellulitis, cannot rule out infection as an secondary etiology -Continue midodrine 5 mg 3 times daily -Hydrocortisone 50 mg every 12 hours [place]'s disease ? As above DTI ? Sacral DTI ? Knee DTI ? DTI of ear ? Due to immobility ? Recent history of back surgery ? Plan # CT lumbar spine ? Due to surrounding cellulitis start Zosyn, Zyvox ? Dressing changes wet-to-dry # Based on clinical progression patient might require surgical intervention Multiple falls -CT of the head # PT OT Adult failure to thrive, muscle wasting, severe protein calorie malnutrition, physical deconditioning, BMI 16 ? Consult dietary ? IV fluids # Check magnesium level, phosphorus level, monitor electrolytes monitor for refeeding syndrome # HIV, acute hep panel Weight loss, BMI 16 ? Etiology unclear Type 1 diabetes mellitus -Blood sugars are quite well-controlled -Is low BMI ? For now just check blood sugars Asthma ? Chronically on oxygen Attestations 2 Medical Necessity Statement*: Patient requires hospitalization, inpatient, greater than 2 midnights, for sacral DTI with cellulitis, multiple DTI's, low BMI, muscle wasting physical deconditioning multiple falls, hypotension, Coding Level of Care Code Acute Code for Chg Fwd Diagnoses Deep tissue injury T14.8XXA Type 1 diabetes E10.9 Adrenal insufficiency E27.40 Hypothyroid E03.9 Decubitus ulcer, lower back L89.109 Heel ulceration L97.409 Decubitus ulcer L89.90 Multiple falls R29.6 Cellulitis L03.90 Low body mass index (BMI) Severe protein-calorie malnutrition E43 Physical deconditioning R53.81 Muscle wasting M62.50 Hypotension I95.9 Adult failure to thrive R62.7
--- NOTE | 2024-07-26 18:03 | ECG_ITS ---
[facility] Test Date: 2024-07-26 Pat Name: Edwin Gama Department: Room: Gender: Female Brand Attendant: : 1965 Requested By: Praful Lai Order Number: [id number] Valentino MD: Nico Morales M.D. Measurements Intervals [place] Rate: 84 P: 59 NE: 150 QRS: 61 QRSD: 89 T: 68 QT: 401 QTc: 475 Interpretive Statements SINUS RHYTHM Compared to ECG 07/26/2024 14:46:40 Myocardial infarct finding no longer present Electronically Signed On 07-26-2024 18:11:26 CDT by Nico Morales M.D. [id number]
[2024-07-26 18:04] LABS: Procalcitonin 0.05 ng/mL (0-0.5)
--- NOTE | 2024-07-26 18:04 | CTR_ITS ---
PROCEDURE INFORMATION: Exam: CT Head Without Contrast Exam date and time: 07/26/2024 6:39 PM Age: 59 years old Clinical indication: Injury or trauma; Fall; Blunt trauma (contusions or hematomas); Additional info: Falls TECHNIQUE: Imaging protocol: Computed tomography of the head without contrast. Radiation optimization: All CT scans at this facility use at least one of these dose optimization techniques: automated exposure control; mA and/or kV adjustment per patient size (includes targeted exams where dose is matched to clinical indication); or iterative reconstruction. COMPARISON: CT head wo con* [id number] 11/12/2023 10:40 AM RADIATION DOSE METRICS: Total DLP (mGy-cm): 1243.88 FINDINGS: Brain: No intracranial hemorrhage. There is global parenchymal volume loss. Periventricular white matter hypoattenuation is nonspecific but most likely due to small vessel disease. No evidence of acute territorial infarct or cerebral edema. No mass effect or midline shift. Cerebral ventricles: Prominent ventricles likely secondary to volume loss. Paranasal sinuses: Mild mucosal thickening of the paranasal sinuses. No air-fluid levels. Mastoid air cells: The mastoid air cells are clear. Bones: The calvarium is intact. Soft tissues: Soft tissues are unremarkable as visualized. CT/CT head wo con* [id number] IMPRESSION: No acute intracranial findings.
[2024-07-26 18:53] LABS: Bilirubin Urine Negative (Negative); Blood Urine Negative (Negative); Glucose Urine UA Negative (Normal); Ketones Urine Trace (Negative); Leukocyte Esterase Urine Trace (Negative); Nitrate Urine Negative (Negative); Protein Urine Negative (Negative); Urine Appearance Clear (CLEAR); Urine Color Yellow (Yellow)
[2024-07-26 19:00] LABS: Amphetamines Screen Urine Negative (Negative); Barbiturates Screen Urine Negative (Negative); Benzodiazepines Screen Urine Positive (Negative); Cocaine Screen Urine Negative (Negative); Opiate Screen Urine Positive (Negative); PCP Screen Urine Negative (Negative); THC Screen Urine Negative (Negative)
[2024-07-26 19:03] LABS: Specific Gravity, Urine 1.044 (1.005-1.030); UA Manual Slide Review YES; UA Slide Review UA Slide Review Perf
[2024-07-26 19:06] LABS: Add Urine Microscopic? YES; RBC Urine RARE /hpf (0-2)
[2024-07-26 19:07] LABS: Add Urine Culture? No; Bacteria Urine 1+ /hpf; Mucus Urine TRACE /hpf; Squamous Epithelial Cell Urine 0-4 /hpf (0-5); WBC Urine 0-4 /hpf (0-5)
--- NOTE | 2024-07-26 20:02 | ECG_ITS ---
[facility] Test Date: 2024-07-26 Pat Name: Edwin Gama Department: Room: 251 Gender: Female Regulatory Process Manager: : 1965 Requested By: Praful Lai Order Number: [id number] Valentino MD: Nico Morales M.D. Measurements Intervals [place] Rate: 74 P: 66 [place]: 136 QRS: 51 QRSD: 91 T: 45 QT: 422 QTc: 470 Interpretive Statements SINUS RHYTHM NONSPECIFIC T-WAVE ABNORMALITY Compared to ECG 07/26/2024 18:03:40 T-wave abnormality now present Electronically Signed On 07-27-2024 12:15:25 CDT by Nico Morales M.D. [id number]
[2024-07-26] MEDS: dextrose 5%-sod chloride 0.9% 1,000 ML 75 ML IV (21:28)
[2024-07-26] MEDS: enoxaparin 40 mg/0.4 mL Syringe SUBCUT (21:28)
[2024-07-26] MEDS: midodrine 5 mg TABLET PO (21:29)
[2024-07-26] MEDS: pantoprazole 40 mg SDV IVP (21:29)
[2024-07-26] MEDS: linezolid premix 600 MG/300 ML PREMIX 300 MG IV (21:29)
[2024-07-26] MEDS: topiramate 100 mg Tablet PO (21:30)
[2024-07-26] MEDS: piperacillin-tazobactam 3.375 GM in sodium chloride 0.9% (plus) 50 ML IV (21:30)
[2024-07-26 21:31] LABS: Troponin(5th) Baseline 43 ng/L (0-10)
[2024-07-26] MEDS: trazodone 100 mg Tablet PO (21:31)
[2024-07-26] MEDS: zolpidem 5 mg Tablet 10 MG PO (21:31)
[2024-07-26] MEDS: gabapentin 300 mg Capsule 600 MG PO (21:31)
[2024-07-26 21:39] LABS: HIV 1 & 2 Antibody Non-Reactive (Non-Reactiv); HIV 1 & 2 Antigen Non-Reactive (Non-Reactiv)
[2024-07-26 21:42] LABS: Chol HDL Ratio 3.26 mg/dL (0.0-4.40); Cholesterol 176 mg/dL (0-200); Free T4 Free Thyroxine 0.81 ng/dL (0.82-1.77); HDL Cholesterol 54 mg/dL (60-100); LDL Cholesterol Calculated 97 mg/dL (50-129); Thyroid Stimulating Hormone 1.34 uIU/mL (0.27-4.20); Triglycerides 126 mg/dL (0-150)
[2024-07-26 21:52] LABS: Hepatitis A Antibody IgM Non-Reactive (Nonreactive); Hepatitis B Core IgM Non-Reactive (Nonreactive); Hepatitis B Surface Antigen Non-Reactive (Nonreactive); Hepatitis C Virus Antibody Non-Reactive (Nonreactive)
[2024-07-26 22:02] LABS: Estmated Average Glucose 108; Hemoglobin A1C 5.4 % (4.0-6.0)
[2024-07-26 23:47] LABS: T3 Free 2.1 PG/ML (2.0-4.4)
[2024-07-27] VITALS (11 sets, daily range): BP systolic 95–127; BP diastolic 60–79; PULSE 65–87; RESP 14–18; TEMP 36.4–36.8; O2SAT 94–100
[2024-07-27 00:16] LABS: Ferritin 736 ng/mL (15-150)
[2024-07-27 00:33] LABS: Troponin 5 2HR 25.72 ng/L (0-10); Troponin 5 2HR Delta -17.28 ABS# (0-10)
[2024-07-27] MEDS: morphine 4 mg/mL SDV 1 mL 2 MG IVP ×2 (01:06→08:20)
--- NOTE | 2024-07-27 01:35 | ECG_ITS ---
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 Measurements Intervals [place] Rate: 69 P: 64 [place]: 155 QRS: 49 QRSD: 90 T: 50 QT: 445 QTc: 477 Interpretive Statements SINUS RHYTHM NONSPECIFIC T-WAVE ABNORMALITY Compared to ECG 07/26/2024 20:55:50 No significant changes Electronically Signed On 07-27-2024 12:15:08 CDT by Nico Morales M.D. [id number]
[2024-07-27 02:59] LABS: Basophils % 0.4 %; Hematocrit 30.5 % (36-47); Lymphocytes % 19.6 %; Mean Corpuscular HGB Conc 30.8 g/dL (30-55); Mean Corpuscular Hemoglobin 28.1 pg (27-33); Mean Corpuscular Volume 91.3 fl (85-98); Mean Platelet Volume 10.1 fL (7.4-10.4); Monocytes # 0.2 10^3/uL (0.2-0.9); Monocytes % 3.4 %; Neutrophils # 4.01 10^3/uL (1.8-7.7); Neutrophils % 76.4 %; Nucleated Red Blood Cells % 0 %; Platelet Count 237 10^3/cmm (157-399); Red Blood Count 3.34 10^6/uL (3.85-5.65); Red Cell Distribution Width 13.6 % (12.1-15.1); White Blood Count 5.25 10^3/uL (3.29-11.43)
[2024-07-27 03:17] LABS: Troponin 5 6HR 23.35 ng/L (0-10)
[2024-07-27 03:18] LABS: Troponin 5 6HR Delta -19.65 ng/L (0-12)
[2024-07-27 03:21] LABS: Alanine Aminotransferase 6 U/L (0-33); Albumin Level 2.7 g/dL (3.5-5.2); Alkaline Phosphatase 110 U/L (35-105); Anion Gap 12.6 (5-19); Aspartate Amino Transferase 19 U/L (0-32); Blood Urea Nitrogen 14 mg/dL (6-20); Calcium 8.2 mg/dL (8.5-10.5); Carbon Dioxide 21 mmol/L (22-29); Chloride 108 mmol/L (98-107); Creatinine Clr Calc Pharmacy 82.9648; Globulin 3.1 g/dL (1.3-4.6); Glucose 136 mg/dL (65-115); Magnesium 1.7 mg/dL (1.7-2.3); Osmolality Calculated 289 mOsm/kg (285-295); Potassium 3.6 mmol/L (3.5-5.1); Sodium 138 mmol/L (136-145); Total Bilirubin 0.3 mg/dL (0.15-1.2); Total Protein 5.8 g/dL (6.6-8.7)
[2024-07-27 03:26] LABS: Creatine Phosphokinase 394 U/L (26-192)
[2024-07-27] MEDS: midodrine 5 mg TABLET PO ×3 (03:38→19:57)
[2024-07-27] MEDS: hydrocortisone 100 mg/2 mL SDV 50 MG IVP ×2 (03:38→15:13)
[2024-07-27] MEDS: piperacillin-tazobactam 3.375 GM in sodium chloride 0.9% (plus) 50 ML IV ×3 (03:48→19:59)
[2024-07-27] MEDS: venlafaxine ER (24HR) 75 mg Capsule PO (06:04)
[2024-07-27 06:36] LABS: Glucose Point of Care 126 mg/dL (70-110)
[2024-07-27] MEDS: atorvastatin 40 mg Tablet PO (08:21)
[2024-07-27] MEDS: levothyroxine 50 mcg Tablet PO (08:21)
[2024-07-27] MEDS: topiramate 100 mg Tablet PO ×2 (08:21→18:25)
[2024-07-27] MEDS: amitriptyline 25 mg Tablet 50 MG PO (08:21)
[2024-07-27] MEDS: fenofibrate 48 mg Tablet PO (08:21)
[2024-07-27] MEDS: estradiol 1 mg Tablet PO (08:21)
[2024-07-27] MEDS: gabapentin 300 mg Capsule 600 MG PO ×3 (08:21→20:10)
[2024-07-27] MEDS: duloxetine 60 mg Capsule PO (08:22)
[2024-07-27] MEDS: linezolid premix 600 MG/300 ML PREMIX 300 MG IV ×2 (08:30→19:59)
[2024-07-27 11:39] LABS: Glucose Point of Care 186 mg/dL (70-110)
[2024-07-27] MEDS: dextrose 5%-sod chloride 0.9% 1,000 ML 75 ML IV (12:06)
--- NOTE | 2024-07-27 12:20 | PC.OT ---
OT EVALUATION ATTTEMPTED AT 1212; PATIENT SOUNDLY SLEEPING; HAS NOT TOUCHED HER LUNCH TRAY AND DOES NOT AWAKEN TO VOICE. WILL ATTEMPT AGAIN AT A LATER TIME
--- NOTE | 2024-07-27 15:08 | USR_ITS ---
PROCEDURE INFORMATION: Exam: US Duplex Lower Extremity Veins, Bilateral Exam date and time: 07/27/2024 4:14 PM Age: 59 years old Clinical indication: Swelling (edema) of limb; Lower extremity, bilateral TECHNIQUE: Imaging protocol: Real-time duplex ultrasound of the bilateral extremities with 2-D michaels scale, color Doppler flow and spectral waveform analysis including responses to compression and other maneuvers (when performed) with image documentation. Complete exam focused on the lower extremity veins. COMPARISON: CT abdomen pelvis w con* [id number] 07/26/2024 4:01 PM FINDINGS: Right deep veins: Unremarkable. The common femoral, femoral, proximal profunda femoral and popliteal veins are patent without thrombus. Normal Doppler waveforms. Normal compressibility and/or augmentation response. Left deep veins: Unremarkable. The common femoral, femoral, proximal profunda femoral and popliteal veins are patent without thrombus. Normal Doppler waveforms. Normal compressibility and/or augmentation response. Superficial veins: Greater saphenous veins at the saphenofemoral junctions are patent bilaterally without thrombus. Soft tissues: Unremarkable. US/CV venous duplex [facility] [id number] IMPRESSION: No evidence of deep vein thrombosis.
--- NOTE | 2024-07-27 15:15 | P.PN_ITS ---
Subjective 2 Subjective: Patient was seen this morning, she is alert oriented x 3, following all commands, she does report significant diffuse musculoskeletal pain, pain over her sacrum, no fevers, chills, no nausea, no vomiting, I had a detailed discussion with her lumbar CT scan findings, her sacral ulcer needs debridement there is concern for possible osteomyelitis, will continue IV antibiotics, she will have her debridement tomorrow we will see what the cultures show, order MRI to evaluate for osteo as patient might require IV antibiotics for 6 weeks and on discharge, Vitals/I&O/Wt Last Vital Signs Temp 97.5 F L 07/27/24 11:45 Pulse 71 07/27/24 11:45 Resp 17 07/27/24 11:45 BP 100/68 07/27/24 11:45 Pulse Ox 94 07/27/24 11:45 O2 Del Method Nasal Cannula 07/27/24 11:45 O2 Flow Rate 1 07/27/24 08:00 07/27/24 07/27/24 07/27/24 06:59 14:59 22:59 Intake Total 50 / 1350 1350 / 1350 Output Total 150 / 150 Balance -100 / 1200 1350 / 1350 Weight last 48 hrs Weight 50.802 kg Weight 49.895 kg Physical Exam 2 Const: COMMON NORMALS: no acute distress and patient oriented x3 Resp: COMMON NORMALS: normal respiratory effort, No retractions, No use of accessory muscles and clear to auscultation bilaterally AUSCULTATION: clear to auscultation bilaterally Cardio: COMMON NORMALS: regular rate, regular rhythm, S1 normal heart sound present and S2 normal heart sound present RATE: regular rate RHYTHM: r egular rhythm HEART SOUNDS: S1 normal heart sound present and S2 normal heart sound present GI: COMMON NORMALS: Normal to inspection, nondistended, normoactive bowel sounds present and non-tender Extremity: COMMON NORMALS: no pedal edema Neuro: COMMON NORMALS: patient oriented x3 Psych: COMMON NORMALS: mental status grossly normal Data 07/27/24 02:45 07/27/24 02:45 Micro: Microbiology 07/26/24 20:45 Blood Culture - Preliminary Blood SPECIMEN COLLECTED 07/26/24 20:37 Blood Culture - Preliminary Blood SPECIMEN COLLECTED A&P Assessment and plan (1) Deep tissue injury: (2) Type 1 diabetes: (3) Adrenal insufficiency: (4) Hypothyroid: (5) Decubitus ulcer, lower back: (6) Heel ulceration: (7) Decubitus ulcer: (8) Multiple falls: (9) Cellulitis: (10) Low body mass index (BMI): (11) Severe protein-calorie malnutrition: (12) Physical deconditioning: (13) Muscle wasting: (14) Hypotension: (15) Adult failure to thrive: (16) Acute osteomyelitis of coccyx: Plan Hypotension -Likely chronically from adrenal insufficiency as patient is on hydrocortisone and midodrine -However given her sacral DTI sent with cellulitis, cannot rule out infection as an secondary etiology -Continue midodrine 5 mg 3 times daily -Hydrocortisone 50 mg every 12 hours [place]'s disease ? As above Coccyx Osetomytelitis? 2. Sacral ulceration, with subcutaneous gas and fluid tracking to the level of the coccyx. No discrete osseous erosion, although fluid reaching the coccyx raises suspicion for possible osteomyelitis. -surgery consulted for debridement -will order MRI -continue Zosyn, Zyvox DTI ? Sacral DTI ? Knee DTI ? DTI of ear ? Due to immobility ? Recent history of back surgery ? Plan ? Due to surrounding cellulitis start Zosyn, Zyvox ? Dressing changes wet-to-dry # Based on clinical progression patient might require surgical intervention Multiple falls -CT of the head no WNL # PT OT Adult failure to thrive, muscle wasting, severe protein calorie malnutrition, physical deconditioning, BMI 16 ? Consult dietary ? IV fluids # Check magnesium level, phosphorus level, monitor electrolytes monitor for refeeding syndrome # HIV, acute hep panel negative Weight loss, BMI 16 ? Etiology unclear Type 1 diabetes mellitus -Blood sugars are quite well-controlled -Is low BMI ? For now just check blood sugars Asthma ? Chronically on oxygen Attestations 2 Medical Necessity Statement*: Patient requires hospitalization, inpatient, greater than 2 midnights, for coccyx osteomyelitis, sacral DTI, adult failure to thrive Diagnoses Deep tissue injury T14.8XXA Type 1 diabetes E10.9 Adrenal insufficiency E27.40 Hypothyroid E03.9 Decubitus ulcer, lower back L89.109 Heel ulceration L97.409 Decubitus ulcer L89.90 Multiple falls R29.6 Cellulitis L03.90 Low body mass index (BMI) Severe protein-calorie malnutrition E43 Physical deconditioning R53.81 Muscle wasting M62.50 Hypotension I95.9 Adult failure to thrive R62.7 Acute osteomyelitis of coccyx M46.28
--- NOTE | 2024-07-27 15:16 | MRR_ITS ---
PROCEDURE INFORMATION: Exam: MR Pelvis Without Contrast, Sacrum Exam date and time: 07/27/2024 5:22 PM Age: 59 years old Clinical indication: Condition or disease; Other: Ulcer; Prior surgery; Surgery date: 6+ months; Surgery type: Lumbar fusion; Additional info: Coccyx ulcer from sacral ulcer, evaluate for osteo TECHNIQUE: Imaging protocol: Magnetic resonance imaging of the pelvis without contrast. Exam focused on the sacrum. COMPARISON: CT abdomen pelvis w con* [id number] 07/26/2024 4:01 PM FINDINGS: Bones/joints: Extensive fusion hardware in the lumbosacral spine with ferromagnetic artifact. Increased T2 and decreased T1 signal in the S5 segment of the sacrum. The other bones are unremarkable. Multiple bones in the lower lumbar spine and upper sacrum are obscured by ferromagnetic artifact. Soft tissues: Decubitus ulcer overlying the sacrococcygeal junction. Subcutaneous soft tissue edema or cellulitis in the bilateral buttock, posterolateral right hip, lower abdominal wall, and the bilateral groin regions. Increased T2 signal in the right gluteus felipe muscle. MR/MR pelvis wo con* [id number] IMPRESSION: 1. Findings consistent with osteomyelitis in the S5 segment of the sacrum. 2. Sacral decubitus ulcer. 3. Subcutaneous soft tissue edema/cellulitis in the lower abdominal wall, bilateral groins, bilateral buttock, and right hip regions. 4. Myositis/edema in the right gluteus felipe muscle.
--- NOTE | 2024-07-27 15:19 | PC.OT ---
OT EVALUATION ATTEMPTED AGAIN AT 1420; PATIENT CONTINUES TO SLEEP AND NOT AWAKEN.
--- NOTE | 2024-07-27 15:26 | P.CONIM_ITS ---
Providers/Reason For Consult 2 Consulting Physician/Specialty*: General Surgery Reason for Consult*: Sacral decubitus ulcer Attending Physician: Praful Lai MD Primary Care Provider: Neda Hurt APN History of Present Illness History of Present Illness Edwin Gama is a 59 year old female who is chronically debilitated, has history of adrenal insufficiency and physical deconditioning, she has decubitus ulcer. She was admitted to the hospital and imaging show evidence of decubitus ulcer tracking down all the way in the soft tissue to the coccyx with a possible abscess. I was consulted for evaluation and debridement. Review of Systems 2 General: Reports: 10 or more systems reviewed and unremarkable except in HPI and below Medications/Allergies Home Medications Medication Instructions Recorded Confirmed Last Taken Type ascorbic acid (vitamin C) 1,000 mg 500 mg PO DAILY 07/20/23 07/26/24 02/01/24 History tablet (Vitamin C With Tiffany Hips) epinephrine 0.125 mg/actuation 2 puff inhalation BID PRN Allergy 07/20/23 07/26/24 Unknown History aerosol inhaler (Primatene Mist) Symptoms Oxygen-home #1 ea 08/23/23 07/26/24 Unknown Rx Bedside commode #1 ea 10/25/23 07/26/24 Unknown Rx Rollinator #1 ea 10/25/23 07/26/24 Unknown Rx Bath mat #1 ea 11/03/23 07/26/24 Unknown Rx Shower rails #1 ea 11/03/23 07/26/24 Unknown Rx Shower chair #1 ea 11/11/23 07/26/24 Unknown Rx pen needle, diabetic 32 gauge x #300 ea 11/16/23 07/26/24 Unknown Rx 5/32 (TRUEplus Pen Needle) ipratropium 0.5 mg-albuterol 3 mg See Rx Instructions .Route 11/19/23 07/26/24 Unknown Rx (2.5 mg base)/3 mL nebulization .COMPLEX #360 mL soln blood sugar diagnostic (Infinity #450 ea 11/23/23 07/26/24 Unknown Rx Test strips) blood-glucose meter (Infinity #1 ea 12/03/23 07/26/24 Unknown Rx Meter Kit) lancets 28 gauge (Safety Lancets) #100 ea 12/03/23 07/26/24 Unknown Rx insulin lispro 100 unit/mL 10 unit (0.1 mL) SUBCUT TID #15 mL 12/27/23 07/26/24 02/22/24 Rx subcutaneous pen (Humalog KwikPen (U-100) Insulin) pen needle, diabetic 32 gauge x #450 ea 12/27/23 07/26/24 Unknown Rx 1/4 (BD Ultra-Fine Micro Pen Needle) amitriptyline 50 mg tablet 50 mg PO DAILY #90 tabs 01/07/24 07/26/24 02/22/24 Rx duloxetine 60 mg capsule,delayed 60 mg PO DAILY #90 caps 01/07/24 07/26/24 02/08/24 Rx release gabapentin 600 mg tablet 600 mg PO TID #270 tabs 01/07/24 07/26/24 02/22/24 Rx levothyroxine 50 mcg tablet 50 mcg PO DAILY #90 tabs 01/07/24 07/26/24 02/22/24 Rx (Synthroid) montelukast 10 mg tablet 10 mg PO DAILY #90 tabs 01/07/24 07/26/24 02/22/24 Rx naloxegol 25 mg tablet (Movantik) 25 mg PO QAM #90 tabs 01/07/24 07/26/24 02/22/24 Rx atorvastatin 40 mg tablet 40 mg PO DAILY #90 tabs 01/13/24 07/26/24 02/08/24 Rx semaglutide 2 mg/dose (8 mg/3 mL) See Rx Instructions .Route 02/10/24 07/26/24 02/08/24 Rx subcutaneous pen injector (Ozempic) .COMPLEX #6 mL topiramate 100 mg tablet 100 mg PO BID #180 tabs 02/15/24 07/26/24 02/21/24 Rx estradiol 1 mg tablet 1 mg PO DAILY 02/22/24 07/26/24 02/22/24 History fenofibrate 54 mg tablet 54 mg PO DAILY 02/22/24 07/26/24 02/22/24 History hydrocortisone 10 mg tablet 10 mg PO TID 02/22/24 07/26/24 02/22/24 History nadolol 40 mg tablet 40 mg PO DAILY PRN Hypertension 02/22/24 07/26/24 02/22/24 History esomeprazole magnesium 40 mg 40 mg PO DAILY 02/24/24 07/26/2402/22/24 History capsule,delayed release midodrine 5 mg tablet 5 mg PO TID 30 days #60 tabs 02/25/24 07/26/24 02/22/24 Rx morphine 15 mg immediate release 15 mg PO Q6H PRN Pain 7 days #30 03/02/24 07/26/24 Unknown Rx tablet tabs furosemide 20 mg tablet 20 mg PO DAILY #90 tabs 03/10/24 07/26/24 Unknown Rx naproxen 375 mg tablet 375 mg PO BID PRN pain #180 tabs 03/10/24 07/26/24 Unknown Rx venlafaxine 75 mg capsule,extended 75 mg PO QAM 90 days #90 caps 03/23/24 07/26/24 Unknown Rx release 24 hr albuterol sulfate 2.5 mg/3 mL See Rx Instructions .Route 03/25/24 07/26/24 Unknown Rx (0.083 %) solution for nebulization .COMPLEX #180 mL budesonide 160 mcg-glycopyr 9 2 inh inhalation BID #10.7 grams 03/27/24 07/26/24 Unknown Rx mcg-formot 4.8 mcg/actuation HFA inhaler (Breztri Union Optechphere) blood sugar diagnostic (Accu-Chek #100 strips 03/31/24 07/26/24 Unknown Rx Guide test strips) blood-glucose meter (Accu-Chek #1 ea 03/31/24 07/26/24 Unknown Rx Guide Glucose Meter) blood-glucose meter,continuous #1 ea 03/31/24 07/26/24 Unknown Rx (FreeStyle Hilda 3 [place]) fluticasone propionate 50 1 spray intranasal DAILY #16 grams 03/31/24 07/26/24 Unknown Rx mcg/actuation nasal spray,suspension trazodone 100 mg tablet 100 mg PO .qhs 30 days #30 tabs 04/03/24 07/26/24 Unknown Rx zolpidem 10 mg tablet 10 mg PO .qhs insomnia #30 tabs 04/03/24 07/26/24 Unknown Rx onabotulinumtoxinA 100 unit 155 unit IM .Q28 days #2 ea 04/12/24 07/26/24 Unknown Rx solution for injection (Botox) albuterol sulfate 90 mcg/actuation 1 puff inhalation Q6H PRN 04/15/24 07/26/24 Unknown Rx aerosol inhaler Shortness Of Breath #8.5 grams azelastine 0.05 % eye drops 1 drp ophthalmic (eye) BID #6 mL 04/15/24 07/26/24 Unknown Rx linaclotide 145 mcg capsule 145 mcg PO DAILY #90 caps 04/15/24 07/26/24 Unknown Rx (Linzess) blood-glucose sensor (FreeStyle #6 ea 04/19/24 07/26/24 Unknown Rx Hilda 3 Sensor device) spironolactone 25 mg tablet 25 mg PO DAILY PRN Edema #90 tabs 05/04/24 07/26/24 Unknown Rx lancets (Accu-Chek Softclix #400 ea 06/17/24 07/26/24 Unknown Rx Lancets) rimegepant 75 mg disintegrating See Rx Instructions .Route 06/30/24 07/26/24 Unknown Rx tablet (Nurtec ODT) .COMPLEX #14 tabs diazepam 5 mg tablet 5 mg PO TID PRN muscle spasm 30 07/10/24 07/26/24 Unknown Rx days #90 tabs promethazine 50 mg tablet 50 mg PO BID 07/26/24 07/26/24 Unknown History Allergies Allergy/AdvReac Type Severity Reaction Status Date / Time No Known Allergies Allergy Verified 07/13/24 15:34 Current Medications Generic Name Dose Route Start Last Admin Trade Name Freq PRN Reason Stop Dose Admin Amitriptyline HCl 50 mg 07/27/24 09:00 07/27/24 08:21 Amitriptyline 25 Mg Tablet PO 50 mg DAILY DAISY Administration Atorvastatin Calcium 40 mg 07/27/24 09:00 07/27/24 08:21 Atorvastatin 40 Mg Tablet PO 40 mg DAILY DAISY Administration Duloxetine HCl 60 mg 07/27/24 09:00 07/27/24 08:22 Duloxetine 60 Mg Capsule PO 60 mg DAILY DAISY Administration Enoxaparin Sodium 40 mg 07/26/24 19:42 07/26/24 21:28 Enoxaparin 40 Mg/0.4 Ml Syringe SUBCUT 40 mg Q24H DAISY Administration Estradiol 1 mg 07/27/24 09:00 07/27/24 08:21 Estradiol 1 Mg Tablet PO 1 mg DAILY DAISY Administration Fenofibrate 48 mg 07/27/24 09:00 07/27/24 08:21 Fenofibrate 48 Mg Tablet PO 48 mg DAILY DAISY Administration Gabapentin 600 mg 07/26/24 21:00 07/27/24 15:08 Gabapentin 300 Mg Capsule PO 600 mg TID DAISY Administration Hydrocortisone Sodium Succinate 50 mg 07/27/24 03:00 07/27/24 15:13 Hydrocortisone 100 Mg/2 Ml Sdv IVP 50 mg Q12H DAISY Administration Linezolid 600 mg in 300 mls @ 300 mls/hr 07/26/24 19:42 07/27/24 10:08 Zyvox Premix IV Infused Q12H DAISY Infusion Protocol Dextrose/Sodium Chloride 1,000 mls @ 75 mls/hr 07/26/24 19:42 07/27/24 12:06 Dextrose 5%-Sod Chloride 0.9% IV 75 mls/hr .[id number] DAISY Administration Piperacillin Sod/Tazobactam 50 mls @ 12.5 mls/hr 07/26/24 20:00 07/27/24 11:23 Sod 3.375 gm/ Sodium Chloride IV 12.5 mls/hr Q8H DAISY Administration Levothyroxine Sodium 50 mcg 07/27/24 09:00 07/27/24 08:21 Levothyroxine 50 Mcg Tablet PO 50 mcg DAILY DAISY Administration Midodrine 5 mg 07/26/24 19:42 07/27/24 11:23 Midodrine 5 Mg Tablet PO 5 mg Q8H DAISY Administration Pantoprazole Sodium 40 mg 07/26/24 19:42 07/26/24 21:29 Pantoprazole 40 Mg Sdv IVP 40 mg Q24H DAISY Administration Topiramate 100 mg 07/26/24 19:42 07/27/24 08:21 Topiramate 100 Mg Tablet PO 100 mg BID DAISY Administration Trazodone HCl 100 mg 07/26/24 21:00 07/26/24 21:31 Trazodone 100 Mg Tablet PO 100 mg BEDTIME DAISY Administration Venlafaxine HCl 75 mg 07/27/24 06:00 07/27/24 06:04 Venlafaxine Er (24hr) 75 Mg Capsule PO 75 mg QAM DAISY Administration Zolpidem Tartrate 10 mg 07/26/24 21:00 07/26/24 21:31 Zolpidem 5 Mg Tablet PO 10 mg BEDTIME DAISY Administration PFSH Acute 2 PFSH: Medical History Multiple falls Commiskey's disease Hypertension, portal Psychiatric care Surgical History History of fusion of lumbar spine History of laminectomy In right HIP History of hip surgery Right hip History of mastectomy BILATERAL History of total adrenalectomy History of cholecystectomy History of hysterectomy Family History Mother Cancer BREAST Father Cancer LUNG Grandmother Cancer MATERNAL- BREAST Family/Other Cancer Grandfather Cancer PATERNAL- LUNG Sister Cancer BREAST Denies family history of Clotting disorder Heart disease Chronic kidney disease (CKD) Bleeding disorder Thyroid disease Stroke Social History Smoking and tobacco/nicotine status: unknown if used tobacco/nicotine Alcohol intake: never Female Reproductive History: Para: 4 Vitals/I&O/Wt Last Vital Signs Temp 97.5 F L 07/27/24 11:45 Pulse 71 07/27/24 11:45 Resp 17 07/27/24 11:45 BP 100/68 07/27/24 11:45 Pulse Ox 94 07/27/24 11:45 O2 Del Method Nasal Cannula 07/27/24 11:45 O2 Flow Rate 1 07/27/24 08:00 07/27/24 07/27/24 07/27/24 06:59 14:59 22:59 Intake Total 50 / 1350 1350 / 1350 Output Total 150 / 150 Balance -100 / 1200 1350 / 1350 Weight last 48 hrs Weight 124 lb 9.6 oz Weight 112 lb Weight 110 lb Physical Exam 2 Narrative: Alert and oriented, no significant distress Back/Pelvis: OTHER: There is a sacral decubitus ulcer, at the moment the decubitus is covered with eschar, it is unstageable. I suspect this may be stage IV with underlying cavity Data 07/27/24 02:45 07/27/24 02:45 Micro: Microbiology 07/26/24 20:45 Blood Culture - Preliminary Blood SPECIMEN COLLECTED 07/26/24 20:37 Blood Culture - Preliminary Blood SPECIMEN COLLECTED A&P Assessment and plan (1) Muscle wasting: (2) Decubitus ulcer, lower back: Plan After complete history physical examination and review of all available clinical data I have decided to offer the patient surgical debridement of her sacral decubitus ulcer. I discussed all risk and benefits include the risk of bleeding, infection, need for additional interventions, worsening of her decubitus ulcer, need for soft tissue coverage in the future. Patient shows understanding agrees with the plan. Patient will be kept n.p.o. after midnight, we will proceed with debridement tomorrow Coding Level of Care Code 77514 Diagnoses Muscle wasting M62.50 Decubitus ulcer, lower back L89.109
[2024-07-27] MEDS: morphine IR 15 mg Tablet PO (15:35)
[2024-07-27 16:31] LABS: Glucose Point of Care 137 mg/dL (70-110)
[2024-07-27] MEDS: ondansetron 2 mg/ML SDV 2 mL 4 MG IVP (18:24)
[2024-07-27] MEDS: pantoprazole 40 mg SDV IVP (19:57)
[2024-07-27] MEDS: enoxaparin 40 mg/0.4 mL Syringe SUBCUT (19:57)
[2024-07-27 21:35] LABS: Glucose Point of Care 221 mg/dL (70-110)
[2024-07-28] VITALS (20 sets, daily range): BP systolic 113–145; BP diastolic 77–89; PULSE 65–91; RESP 13–20; TEMP 36.3–36.9; O2SAT 96–100
[2024-07-28] MEDS: hydrocortisone 100 mg/2 mL SDV 50 MG IVP ×2 (03:07→14:07)
[2024-07-28] MEDS: midodrine 5 mg TABLET PO ×3 (03:07→17:09)
[2024-07-28] MEDS: dextrose 5%-sod chloride 0.9% 1,000 ML 75 ML IV ×2 (03:07→21:15)
[2024-07-28] MEDS: piperacillin-tazobactam 3.375 GM in sodium chloride 0.9% (plus) 50 ML IV ×3 (03:08→21:16)
[2024-07-28] MEDS: ondansetron 2 mg/ML SDV 2 mL 4 MG IVP (03:36)
[2024-07-28] MEDS: venlafaxine ER (24HR) 75 mg Capsule PO (05:12)
[2024-07-28 05:32] LABS: Basophils % 0.1 %; Eosinophils # 0.1 10^3/uL (0.0-0.8); Hematocrit 37.3 % (36-47); Lymphocytes # 1.7 10^3/uL (0.8-4.8); Lymphocytes % 13.4 %; Mean Corpuscular HGB Conc 31.4 g/dL (30-55); Mean Corpuscular Hemoglobin 28.6 pg (27-33); Mean Corpuscular Volume 91.2 fl (85-98); Mean Platelet Volume 10.5 fL (7.4-10.4); Monocytes # 0.8 10^3/uL (0.2-0.9); Monocytes % 6.3 %; Neutrophils # 9.93 10^3/uL (1.8-7.7); Neutrophils % 78.8 %; Nucleated Red Blood Cells % 0 %; Platelet Count 315 10^3/cmm (157-399); Red Blood Count 4.09 10^6/uL (3.85-5.65); Red Cell Distribution Width 13.2 % (12.1-15.1); White Blood Count 12.59 10^3/uL (3.29-11.43)
[2024-07-28 05:56] LABS: Alanine Aminotransferase 7 U/L (0-33); Albumin Level 3.3 g/dL (3.5-5.2); Alkaline Phosphatase 107 U/L (35-105); Aspartate Amino Transferase 18 U/L (0-32); Blood Urea Nitrogen 10 mg/dL (6-20); Calcium 8.4 mg/dL (8.5-10.5); Carbon Dioxide 20 mmol/L (22-29); Chloride 107 mmol/L (98-107); Globulin 2.7 g/dL (1.3-4.6); Glucose 122 mg/dL (65-115); Magnesium 1.9 mg/dL (1.7-2.3); Osmolality Calculated 290 mOsm/kg (285-295); Phosphorus 2.8 mg/dL (2.5-4.5); Sodium 140 mmol/L (136-145); Total Bilirubin 0.2 mg/dL (0.15-1.2)
[2024-07-28 06:02] LABS: Anion Gap 16.5 (5-19); Potassium 3.5 mmol/L (3.5-5.1)
[2024-07-28 06:04] LABS: Slide Review Slide Review Perform
[2024-07-28] MEDS: sodium chloride 0.9% 1,000 ML 30 ML IV (07:53)
--- NOTE | 2024-07-28 07:53 | PC.NURSE ---
Pt taken to pre-op at 745am via bed.
--- NOTE | 2024-07-28 08:01 | P.HPUD_ITS ---
Surgery/Procedure H&P Update DATE OF PROCEDURE: July 28, 2024 DATE H&P PERFORMED: 07/27/24 H&P UPDATE INFORMATION: I have reviewed H&P completed within last 30 days, I have examined patient prior to procedure, No changes to prior documentation and H&P is in [facility] EMR on date indicated PLANNED PROCEDURE: Operation Date: 07/28/24 08:25 Proposed Procedures p Debridement of sacral decubitis ulcer(Not Applicable) - Reg Luna MD
--- NOTE | 2024-07-28 08:24 | P.ANESASSM_ITS ---
Pre-Anesthetic Assessment Height/Weight: Height 1.75 m Weight 58.377 kg Temp Pulse Resp BP Pulse Ox O2 Del Method O2 Flow Rate 97.7 F 71 18 131/85 100 Nasal Cannula 2 07/28/24 07:51 07/28/24 07:51 07/28/24 07:51 07/28/24 07:51 07/28/24 07:51 07/28/24 07:51 07/28/24 07:51 Operation Date: 07/28/24 08:25 Proposed Procedures p Debridement of sacral decubitis ulcer(Not Applicable) - Reg Luna MD Familial anesthetic complications: None Was Beta Fadi taken within 24 hours: N/A Was Clonidine taken within 24 hours: N/A Last intake: > 8hrs Social No alcohol and No tobacco Exam alert, oriented x 3, clear to auscultation bilaterally and regular rate & rhythm Airway Mallampati: Class I Dentition: full Pulmonary Asthma CV/HEM Hypertension hypotension GI Gastroesophageal Reflux Disease Metabolic Diabetes Mellitus and Hyperlipidemia eddie's disease (adrenal insufficiency) Anesthetic Plan ASA status: 4 Anesthesia: General Risk of > 500 ml blood loss (7ml/kg in children): No Other Pertinent Information Is unable to tell me last time she took her semaglutide Medications/Allergies Home Medications Medication Instructions Recorded Confirmed Last Taken Type ascorbic acid (vitamin C) 1,000 mg 500 mg PO DAILY 07/20/23 07/26/24 02/01/24 History tablet (Vitamin C With Tiffany Hips) epinephrine 0.125 mg/actuation 2 puff inhalation BID PRN Allergy 07/20/23 07/26/24 Unknown History aerosol inhaler (Primatene Mist) Symptoms Oxygen-home #1 ea 08/23/23 07/26/24 Unknown Rx Bedside commode #1 ea 10/25/23 07/26/24 Unknown Rx Rollinator #1 ea 10/25/23 07/26/24 Unknown Rx Bath mat #1 ea 11/03/23 07/26/24 Unknown Rx Shower rails #1 ea 11/03/23 07/26/24 Unknown Rx Shower chair #1 ea 11/11/23 07/26/24 Unknown Rx pen needle, diabetic 32 gauge x #300 ea 11/16/23 07/26/24 Unknown Rx /32 (TRUEplus Pen Needle) ipratropium 0.5 mg-albuterol 3 mg See Rx Instructions .Route 11/19/23 07/26/24 Unknown Rx (2.5 mg base)/3 mL nebulization .COMPLEX #360 mL soln blood sugar diagnostic (Infinity #450 ea 11/23/23 07/26/24 Unknown Rx Test strips) blood-glucose meter (Infinity #1 ea 12/03/23 07/26/24 Unknown Rx Meter Kit) lancets 28 gauge (Safety Lancets) #100 ea 12/03/23 07/26/24 Unknown Rx insulin lispro 100 unit/mL 10 unit (0.1 mL) SUBCUT TID #15 mL 12/27/23 07/26/24 02/22/24 Rx subcutaneous pen (Humalog KwikPen (U-100) Insulin) pen needle, diabetic 32 gauge x #450 ea 12/27/23 07/26/24 Unknown Rx 1/4 (BD Ultra-Fine Micro Pen Needle) amitriptyline 50 mg tablet 50 mg PO DAILY #90 tabs 01/07/24 07/26/24 02/22/24 Rx duloxetine 60 mg capsule,delayed 60 mg PO DAILY #90 caps 01/07/24 07/26/24 02/08/24 Rx release gabapentin 600 mg tablet 600 mg PO TID #270 tabs 01/07/24 07/26/24 02/22/24 Rx levothyroxine 50 mcg tablet 50 mcg PO DAILY #90 tabs 01/07/24 07/26/24 02/22/24 Rx (Synthroid) montelukast 10 mg tablet 10 mg PO DAILY #90 tabs 01/07/24 07/26/24 02/22/24 Rx naloxegol 25 mg tablet (Movantik) 25 mg PO QAM #90 tabs 01/07/24 07/26/24 02/22/24 Rx atorvastatin 40 mg tablet 40 mg PO DAILY #90 tabs 01/13/24 07/26/24 02/08/24 Rx semaglutide 2 mg/dose (8 mg/3 mL) See Rx Instructions .Route 02/10/24 07/26/24 02/08/24 Rx subcutaneous pen injector (Ozempic) .COMPLEX #6 mL topiramate 100 mg tablet 100 mg PO BID #180 tabs 02/15/24 07/26/24 02/21/24 Rx estradiol 1 mg tablet 1 mg PO DAILY 02/22/24 07/26/24 02/22/24 History fenofibrate 54 mg tablet 54 mg PO DAILY 02/22/24 07/26/24 02/22/24 History hydrocortisone 10 mg tablet 10 mg PO TID 02/22/24 07/26/24 02/22/24 History nadolol 40 mg tablet 40 mg PO DAILY PRN Hypertension 02/22/24 07/26/24 02/22/24 History esomeprazole magnesium 40 mg 40 mg PO DAILY 02/24/24 07/26/24 02/23/24 History capsule,delayed release midodrine 5 mg tablet 5 mg PO TID 30 days #60 tabs 02/25/24 07/26/24 02/22/24 Rx morphine 15 mg immediate release 15 mg PO Q6H PRN Pain 7 days #30 03/02/24 07/26/24 Unknown Rx tablet tabs furosemide 20 mg tablet 20 mg PO DAILY #90 tabs 03/10/24 07/26/24 Unknown Rx naproxen 375 mg tablet 375 mg PO BID PRN pain #180 tabs 03/10/24 07/26/24 Unknown Rx venlafaxine 75 mg capsule,extended 75 mg PO QAM 90 days #90 caps 03/23/24 07/26/24 Unknown Rx release 24 hr albuterol sulfate 2.5 mg/3 mL See Rx Instructions .Route 03/25/24 07/26/24 Unknown Rx (0.083 %) solution for nebulization .COMPLEX #180 mL budesonide 160 mcg-glycopyr 9 2 inh inhalation BID #10.7 grams 03/27/24 07/26/24 Unknown Rx mcg-formot 4.8 mcg/actuation HFA inhaler (Breztri Aerosphere) blood sugar diagnostic (Accu-Chek #100 strips 03/31/24 07/26/24 Unknown Rx Guide test strips) blood-glucose meter (Accu-Chek #1 ea 03/31/24 07/26/24 Unknown Rx Guide Glucose Meter) blood-glucose meter,continuous #1 ea 03/31/24 07/26/24 Unknown Rx (FreeStyle Hilda 3 [place]) fluticasone propionate 50 1 spray intranasal DAILY #16 grams 03/31/24 07/26/24 Unknown Rx mcg/actuation nasal spray,suspension trazodone 100 mg tablet 100 mg PO .qhs 30 days #30 tabs 04/03/24 07/26/24 Unknown Rx zolpidem 10 mg tablet 10 mg PO .qhs insomnia #30 tabs 04/03/24 07/26/24 Unknown Rx onabotulinumtoxinA 100 unit 155 unit IM .Q28 days #2 ea 04/12/24 07/26/24 Unknown Rx solution for injection (Botox) albuterol sulfate 90 mcg/actuation 1 puff inhalation Q6H PRN 04/15/24 07/26/24 Unknown Rx aerosol inhaler Shortness Of Breath #8.5 grams azelastine 0.05 % eye drops 1 drp ophthalmic (eye) BID #6 mL 04/15/24 07/26/24 Unknown Rx linaclotide 145 mcg capsule 145 mcg PO DAILY #90 caps 04/15/24 07/26/24 Unknown Rx (Linzess) blood-glucose sensor (FreeStyle #6 ea 04/19/24 07/26/24 Unknown Rx Hilda 3 Sensor device) spironolactone 25 mg tablet 25 mg PO DAILY PRN Edema #90 tabs 05/04/24 07/26/24 Unknown Rx lancets (Accu-Chek Softclix #400 ea 06/17/24 07/26/24 Unknown Rx Lancets) rimegepant 75 mg disintegrating See Rx Instructions .Route 06/30/24 07/26/24 Unknown Rx tablet (Nurtec ODT) .COMPLEX #14 tabs diazepam 5 mg tablet 5 mg PO TID PRN muscle spasm 30 07/10/24 07/26/24 Unknown Rx days #90 tabs promethazine 50 mg tablet 50 mg PO BID 07/26/24 07/26/24 Unknown History Allergies Allergy/AdvReac Type Severity Reaction Status Date / Time No Known Allergies Allergy Verified 07/13/24 15:34 Current Medications Generic Name Dose Route Start Last Admin Trade Name Freq PRN Reason Stop Dose Admin Amitriptyline HCl 50 mg 07/27/24 09:00 07/27/24 08:21 Amitriptyline 25 Mg Tablet PO 50 mg DAILY DAISY Administration Atorvastatin Calcium 40 mg 07/27/24 09:00 07/27/24 08:21 Atorvastatin 40 Mg Tablet PO 40 mg DAILY DAISY Administration Duloxetine HCl 60 mg 10/31/24 09:00 07/27/24 08:22 Duloxetine 60 Mg Capsule PO 60 mg DAILY DAISY Administration Enoxaparin Sodium 40 mg 07/26/24 19:42 07/27/24 19:57 Enoxaparin 40 Mg/0.4 Ml Syringe SUBCUT 40 mg Q24H DAISY Administration Estradiol 1 mg 07/27/24 09:00 07/27/24 08:21 Estradiol 1 Mg Tablet PO 1 mg DAILY DAISY Administration Fenofibrate 48 mg 07/27/24 09:00 07/27/24 08:21 Fenofibrate 48 Mg Tablet PO 48 mg DAILY DAISY Administration Gabapentin 600 mg 07/26/24 21:00 07/27/24 20:10 Gabapentin 300 Mg Capsule PO 600 mg TID DAISY Administration Hydrocortisone Sodium Succinate 50 mg 07/27/24 03:00 07/28/24 03:07 Hydrocortisone 100 Mg/2 Ml Sdv IVP 50 mg Q12H DAISY Administration Linezolid 600 mg in 300 mls @ 300 mls/hr 07/26/24 19:42 07/27/24 21:56 Zyvox Premix IV Infused Q12H DAISY Infusion Protocol Dextrose/Sodium Chloride 1,000 mls @ 75 mls/hr 07/26/24 19:42 07/28/24 03:07 Dextrose 5%-Sod Chloride 0.9% IV 75 mls/hr .[id number] DAISY Administration Piperacillin Sod/Tazobactam 50 mls @ 12.5 mls/hr 07/26/24 20:00 07/28/24 07:20 Sod 3.375 gm/ Sodium Chloride IV Infused Q8H DAISY Infusion Sodium Chloride 1,000 mls @ 30 mls/hr 07/28/24 08:00 07/28/24 07:53 Sodium Chloride 0.9% IV 07/29/24 07:59 30 mls/hr .Q24H DAISY Administration Levothyroxine Sodium 50 mcg 07/27/24 09:00 07/27/24 08:21 Levothyroxine 50 Mcg Tablet PO 50 mcg DAILY DAISY Administration Midodrine 5 mg 07/26/24 19:42 07/28/24 03:07 Midodrine 5 Mg Tablet PO 5 mg Q8H DAISY Administration Morphine Sulfate 15 mg 07/27/24 10:58 07/27/24 15:35 Morphine Ir 15 Mg Tablet PO 15 mg Q6H PRN Administration Pain Ondansetron HCl 4 mg 07/26/24 19:42 07/28/24 03:36 Ondansetron 2 Mg/Ml Sdv 2 Ml IVP 4 mg Q8H PRN Administration vomiting, or N/V if npo Pantoprazole Sodium 40 mg 07/26/24 19:42 07/27/24 19:57 Pantoprazole 40 Mg Sdv IVP 40 mg Q24H DAISY Administration Topiramate 100 mg 07/26/24 19:42 07/27/24 18:25 Topiramate 100 Mg Tablet PO 100 mg BID DAISY Administration Trazodone HCl 100 mg 07/26/24 21:00 07/27/24 22:38 Trazodone 100 Mg Tablet PO Not Given BEDTIME DAISY Venlafaxine HCl 75 mg 07/27/24 06:00 07/28/24 05:12 Venlafaxine Er (24hr) 75 Mg Capsule PO 75 mg QAM DAISY Administration Zolpidem Tartrate 10 mg 07/26/24 21:00 07/27/24 22:38 Zolpidem 5 Mg Tablet PO Not Given BEDTIME DAISY PFSH Anesthesia Medical History Multiple falls Belmont's disease Hypertension, portal Psychiatric care Surgical History History of fusion of lumbar spine History of laminectomy In right HIP History of hip surgery Right hip History of mastectomy BILATERAL History of total adrenalectomy History of cholecystectomy History of hysterectomy Family History Mother Cancer BREAST Father Cancer LUNG Grandmother Cancer MATERNAL- BREAST Family/Other Cancer Grandfather Cancer PATERNAL- LUNG Sister Cancer BREAST Denies family history of Clotting disorder Heart disease Chronic kidney disease (CKD) Bleeding disorder Thyroid disease Stroke Social History Smoking and tobacco/nicotine status: unknown if used tobacco/nicotine Alcohol intake: never Female Reproductive History Para: 4 Data Anesthesia 07/28/24 Unknown 07/28/24 Unknown Short CBC 07/26/24 07/27/24 07/28/24 Range/Units 15:13 02:45 Unknown WBC 7.91 5.25 12.59 H (3.29-11.43) 10^3/uL Hgb 10.40 L 9.40 L 11.70 (11.27-16.99) g/dL Hct 34.1 L 30.5 L 37.3 (36-47) % MCV 90.5 91.3 91.2 (85-98) fl Plt Count 306 237 315 D (157-399) 10^3/cmm Neut % (Auto) 73.8 76.4 78.8 % Neut # (Auto) 5.84 4.01 9.93 H (1.8-7.7) 10^3/uL BMP 07/26/24 07/27/24 07/28/24 15:13 02:45 Unknown Sodium 139 138 140 Potassium 3.9 3.6 3.5 Chloride 105 108 H 107 Carbon Dioxide 24 21 L 20 L BUN 15 14 10 Creatinine 0.7 0.6 0.6 Glucose 85 136 H 122 H Calcium 8.7 8.2 L 8.4 L Cardiac Enzymes 07/26/24 07/26/24 07/26/24 Range/Units 15:13 20:37 23:53 Creatine Kinase 553 H* (26-192) U/L Troponin T Baseline 43 H (0-10) ng/L Troponin T 120 Minute 25.72 H (0-10) ng/L Delta Troponin T -17.28 L (0-10) ABS# Troponin T Hi Sens 6Hr (0-10) ng/L Troponin T Hi Sens 6Hr Delta (0-12) ng/L 07/27/24 Range/Units 02:45 Creatine Kinase 394 H* (26-192) U/L Troponin T Baseline (0-10) ng/L Troponin T 120 Minute (0-10) ng/L Delta Troponin T (0-10) ABS# Troponin T Hi Sens 6Hr 23.35 H (0-10) ng/L Troponin T Hi Sens 6Hr Delta -19.65 L (0-12) ng/L Liver Function 07/26/24 07/27/24 07/28/24 Range/Units 15:13 02:45 Unknown Total Bilirubin 0.3 0.3 0.2 (0.15-1.2) mg/dL AST 21 19 18 (0-32) U/L ALT 7 6 7 (0-33) U/L Alkaline Phosphatase 123 H 110 H 107 H (35-105) U/L Albumin 3.1 L 2.7 L 3.3 L (3.5-5.2) g/dL Urine 07/26/24 Range/Units 18:32 Urine Color Yellow (Yellow) Urine Appearance Clear (CLEAR) Urine pH 6.0 (5-7) Ur Specific [place] 1.044 H (1.005-1.030) Urine Protein Negative (Negative) Urine Glucose (UA) Negative (Normal) Urine Ketones Trace (Negative) Urine Nitrate Negative (Negative) Urine Bilirubin Negative (Negative) Ur Leukocyte Esterase Trace A (Negative) Urine RBC Rare (0-2) /hpf Urine WBC 0-4 H (0-5) /hpf Coags 07/26/24 07/26/24 15:13 20:37 ESR 35 H D-Dimer 3.30 H C-Reactive Protein 6.9 H Microbiology 07/26/24 20:45 Blood Culture - Preliminary Blood NEGATIVE TO DATE 07/26/24 20:37 Blood Culture - Preliminary Blood NEGATIVE TO DATE 07/26/24 22:00 Gram Stain - Final Back Cardiac Studies: 2 No Data to Display
[2024-07-28 09:10] LABS: Glucose Point of Care 115 mg/dL (70-110)
[2024-07-28] MEDS: BUPivacaine 0.25% INJ 10 mL 5 ML INJECTION (09:15)
[2024-07-28] MEDS: lidocaine-epi 1% 20 mL INJ 5 ML INJECTION (09:15)
--- NOTE | 2024-07-28 09:32 | P.OP_ITS ---
Operative Report Date of procedure: July 28, 2024 Pre-op diagnosis: Sacral decubitus ulcer Post-op diagnosis: Stage IV sacral decubitus ulcer Post-op findings: There was a sacral cubitus ulcer covered with eschar, once the eschar was removed there was however was noted to track down all the way down to the sacral open, the final wound measurements were 5.5 x 3.5 x 2 cm. Wound was packed. Procedure done: Excisional debridement of sacral decubitus ulcer Specimens removed/disposition: Eschar for tissue culture Surgeon: Reg Luna MD Meter And Service Line Inspector: ABIGAIL OR Staff Complications: None apparent Brief History: is a 59-year-old female who presents to the hospital with a sacral decubitus ulcer. Was consulted for debridement. We discussed all risk benefits and decided to proceed. Procedure: Patient was brought into the OR, general anesthesia was given, she was then transferred to the OR bed and placed in a left lateral decubitus position. The sacral region was prepped and draped in usual sterile fashion. Timeout was conducted. There was a 5 x 3 cm sacral decubitus ulcer covered with eschar, the scar had ulcerations in the middle allowing to see the underlying tissue, the scar was sharply debrided using a #10 blade, the scar and underlying tissue was then sent to pathology for tissue culture. After the scar with removal there was no evidence of an abscess but there was significant devitalized tissue that was removed with a curette. Extensive curettage of the wound was done until healthy bleeding tissue was noted on the upper lower medial and lateral directions. The base of the wound will track down all the way to the presacral fascia. There was no healthy tissue overlying the bone. The wound was completely debrided and hemostasis was later obtained with electrocautery. I then irrigated the wound with 1 L of normal saline. Local anesthesia was infiltrated around of the wound. I then proceeded to pack the wound with Interval gauze, this was covered with a padded dressing. At the end of the procedure all counts were correct, the patient tolerated well the procedure was transferred to PACU in stable condition.
--- NOTE | 2024-07-28 10:06 | PC.SOCIAL ---
IMM Update pg 2 of IMM Updated and reviewed w/ patient. Copy provided and copy dated, initialed and placed in chart.
--- NOTE | 2024-07-28 10:15 | ANE.PACU2 ---
Inpatient post-anesthesia follow up: Airway intact: Yes Vital signs: Temperature 97.8 F Pulse Rate 70 Respiratory Rate 16 Blood Pressure 127/77 Pulse Oximetry 100 Oxygen Delivery Me thod Nasal Cannula Oxygen Flow Rate 3 Fraction of Inspir ed Oxygen Hydration adequate: Yes Nausea and vomiting: No Pain level: 1 Mental status: Baseline
--- NOTE | 2024-07-28 10:28 | SUR.PHASEI ---
1015 Transported pt to room 251. Ramone, pt care nurse, accepted pt. VS: 133/82, HR 74, Sats 98% on 3 liters o2, Temp 98.1. Ramone looked at dressing and denies any concerns.
[2024-07-28] MEDS: linezolid premix 600 MG/300 ML PREMIX 300 MG IV ×2 (10:38→21:52)
[2024-07-28 11:13] LABS: Glucose Point of Care 145 mg/dL (70-110)
[2024-07-28] MEDS: morphine IR 15 mg Tablet PO (11:48)
--- NOTE | 2024-07-28 12:46 | PC.CHAP ---
Pastoral Care Encounter/Spiritual Assessment Type of Contact [] Declined case resource manager visit [] Patient/Family/Request visit [] Outpatient visit [] Follow-up visit [] Physician referral [] Code/Alert [X] Routine visit [] Staff referral [] Actively dying [] Patient sleeping [] Family support [] [] Out of room [] Palliative care [] [] Receiving care in room [] Pre-surgical visit [] Trauma [] Long length of stay [] ICU visit [] Other: Relational/Emotional Strength [x] Patient feels connected with others/family/visitors/staff [] Distress [] Loneliness/isolation [] Abandonment Spirituality of Patient [x] Person of Isabel [] Attends Yarsanism of their Isabel [x] Believes in Prayer [] Reads Bible or Jew materials [] There are 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 Interventions [x] Prayer [x] Active listening [x] Non-anxious presence [] Spiritual/emotional support [] Crisis/trauma care [] Spiritual counseling [] Bereavement support [] Provided bereavement packet [] Provided Bible/devotional materials [] Provided toy/stuffed animal, coloring book to patient or family member [] Provided Communion [] Anointing/[place] [] Salvation [] Completed spiritual assessment [] Other: Impact on Illness or Injury [] Angry [] Fearful [] Anxious [] Often cries [] Exhaustion [] Unable to work [] Unable to attend scientology [] Unable to walk/stand [] Unable to read [] Unable to drive [] Unable to eat/drink [] Unable to sleep [] Unable to be with family [] Patient intubated [] Other: Summary prayer +1 Time spent with patient
[2024-07-28] MEDS: gabapentin 300 mg Capsule 600 MG PO ×2 (14:06→21:16)
--- NOTE | 2024-07-28 14:08 | P.PN_ITS ---
Subjective 2 Subjective: Patient was seen this morning, postoperatively, she denies any fevers, chills, no cough does complain of pain in her lower back Vitals/I&O/Wt Last Vital Signs Temp 97.8 F 07/28/24 12:20 Pulse 65 07/28/24 12:20 Resp 18 07/28/24 12:20 BP 136/83 07/28/24 12:20 Pulse Ox 100 07/28/24 12:20 O2 Del Method Nasal Cannula 07/28/24 12:20 O2 Flow Rate 3 07/28/24 10:12 07/27/24 07/28/24 07/28/24 22:59 06:59 14:59 Intake Total 350 / 1700 1050 / 2750 478 / 478 Output Total 735 / 735 Balance 350 / 1700 2014 473 / 473 Weight last 48 hrs Weight 58.377 kg Weight 56.518 kg Weight 50.802 kg Weight 49.895 kg Physical Exam 2 Const: COMMON NORMALS: no acute distress and patient oriented x3 Resp: COMMON NORMALS: normal respiratory effort, No retractions, No use of accessory muscles and clear to auscultation bilaterally AUSCULTATION: clear to auscultation bilaterally Cardio: COMMON NORMALS: regular rate, regular rhythm, S1 normal heart sound present and S2 normal heart sound present RATE: regular rate RHYTHM: r egular rhythm HEART SOUNDS: S1 normal heart sound present and S2 normal heart sound present GI: COMMON NORMALS: Normal to inspection, nondistended, normoactive bowel sounds present and non-tender Extremity: COMMON NORMALS: no pedal edema Neuro: COMMON NORMALS: patient oriented x3 Psych: COMMON NORMALS: mental status grossly normal Urinary Catheter Management: Price: Cath Placed During This Visit: yes Reason for Continuing Indwelling Catheter: Acute Urinary Retention or Obstruction Urinary Catheter Date of Insertion: 07/28/24 Urinary Catheter Time of Insertion: 05:15 Data 07/28/24 Unknown 07/28/24 Unknown Micro: Microbiology 07/26/24 20:45 Blood Culture - Preliminary Blood NEGATIVE TO DATE 07/26/24 20:37 Blood Culture - Preliminary Blood NEGATIVE TO DATE 07/26/24 22:00 Gram Stain - Final Back A&P Assessment and plan (1) Deep tissue injury: (2) Type 1 diabetes: (3) Adrenal insufficiency: (4) Hypothyroid: (5) Decubitus ulcer, lower back: (6) Heel ulceration: (7) Decubitus ulcer: (8) Multiple falls: (9) Cellulitis: (10) Low body mass index (BMI): (11) Severe protein-calorie malnutrition: (12) Physical deconditioning: (13) Muscle wasting: (14) Hypotension: (15) Adult failure to thrive: (16) Acute osteomyelitis of coccyx: Plan Hypotension -Likely chronically from adrenal insufficiency as patient is on hydrocortisone and midodrine -However given her sacral DTI sent with cellulitis, cannot rule out infection as an secondary etiology -Continue midodrine 5 mg 3 times daily -Hydrocortisone 50 mg every 12 hours, will transition to p.o. 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 Findings consistent with osteomyelitis in the S5 segment of the sacrum. 2. Sacral decubitus ulcer. 3. Subcutaneous soft tissue edema/cellulitis in the lower abdominal wall, bilateral groins, bilateral buttock, and right hip regions. 4. Myositis/edema in the right gluteus felipe muscle. -continue Zosyn, Zyvox DTI ? Sacral DTI ? Knee DTI ? DTI of ear ? Due to immobility ? Recent history of back surgery -Patient's status post I&D of sacral descriptors ulcer, measuring 5.5 x 3.5 x 2 cm, tracking all the way down to the presacral fascia ? Plan ? Due to surrounding cellulitis Zosyn, Zyvox ? Follow surgical cultures ? Dressing changes wet-to-dry # Based on clinical progression patient might require surgical intervention Multiple falls -CT of the head no WNL # PT OT Adult failure to thrive, muscle wasting, severe protein calorie malnutrition, physical deconditioning, BMI 16 ? Consult dietary ? IV fluids # Check magnesium level, phosphorus level, monitor electrolytes monitor for refeeding syndrome # HIV, acute hep panel negative Weight loss, BMI 16 ? Etiology sacral DTI, chronic pain Type 1 diabetes mellitus -Blood sugars are quite well-controlled -Is low BMI ? Low-dose insulin sliding scale Asthma ? Chronically on oxygen Attestations 2 Medical Necessity Statement*: Patient requires hospitalization for coccyx osteomyelitis with sacral DTI requiring surgical invention requiring IV antibiotics, Diagnoses Deep tissue injury T14.8XXA Type 1 diabetes E10.9 Adrenal insufficiency E27.40 Hypothyroid E03.9 Decubitus ulcer, lower back L89.109 Heel ulceration L97.409 Decubitus ulcer L89.90 Multiple falls R29.6 Cellulitis L03.90 Low body mass index (BMI) Severe protein-calorie malnutrition E43 Physical deconditioning R53.81 Muscle wasting M62.50 Hypotension I95.9 Adult failure to thrive R62.7 Acute osteomyelitis of coccyx M46.28
[2024-07-28 15:19] LABS: COMPLEMENT, TOTAL (CH50) 60 U/mL (31-60)
[2024-07-28 16:05] LABS: COMPLEMENT COMPONENT C3C 145 mg/dL (83-193); COMPLEMENT COMPONENT C4C 41 mg/dL (15-57)
--- NOTE | 2024-07-28 16:14 | PC.OT ---
OT treatment session attempted with pt declining services due to s/p excisional debridement of sacral decubitus ulcer; will attempt again at later time.
[2024-07-28] MEDS: pantoprazole 40 mg SDV IVP (17:09)
[2024-07-28] MEDS: topiramate 100 mg Tablet PO (17:09)
[2024-07-28 17:15] LABS: Glucose Point of Care 127 mg/dL (70-110)
[2024-07-28 20:23] LABS: Glucose Point of Care 163 mg/dL (70-110)
[2024-07-28] MEDS: trazodone 100 mg Tablet PO (21:16)
[2024-07-28] MEDS: zolpidem 5 mg Tablet 10 MG PO (21:16)
[2024-07-28] MEDS: enoxaparin 40 mg/0.4 mL Syringe SUBCUT (21:52)
[2024-07-29] VITALS (8 sets, daily range): BP systolic 122–130; BP diastolic 80–85; PULSE 73–82; RESP 14–18; TEMP 36.5–36.9; O2SAT 95–96
[2024-07-29] MEDS: piperacillin-tazobactam 3.375 GM in sodium chloride 0.9% (plus) 50 ML IV ×3 (03:13→20:13)
[2024-07-29] MEDS: hydrocortisone 100 mg/2 mL SDV 50 MG IVP (03:14)
[2024-07-29] MEDS: midodrine 5 mg TABLET PO ×3 (03:14→17:47)
[2024-07-29 04:57] LABS: Basophils % 0.1 %; Hematocrit 31.1 % (36-47); Lymphocytes # 1.1 10^3/uL (0.8-4.8); Lymphocytes % 9.2 %; Mean Corpuscular HGB Conc 31.8 g/dL (30-55); Mean Corpuscular Hemoglobin 28.4 pg (27-33); Mean Corpuscular Volume 89.4 fl (85-98); Mean Platelet Volume 9.9 fL (7.4-10.4); Monocytes # 0.9 10^3/uL (0.2-0.9); Monocytes % 7.7 %; Neutrophils # 9.55 10^3/uL (1.8-7.7); Neutrophils % 82.5 %; Nucleated Red Blood Cells % 0 %; Platelet Count 342 10^3/cmm (157-399); Red Blood Count 3.48 10^6/uL (3.85-5.65); Red Cell Distribution Width 13.4 % (12.1-15.1); White Blood Count 11.57 10^3/uL (3.29-11.43)
[2024-07-29 05:27] LABS: Alanine Aminotransferase 9 U/L (0-33); Albumin Level 2.9 g/dL (3.5-5.2); Alkaline Phosphatase 93 U/L (35-105); Aspartate Amino Transferase 24 U/L (0-32); Blood Urea Nitrogen 10 mg/dL (6-20); Calcium 8.2 mg/dL (8.5-10.5); Carbon Dioxide 23 mmol/L (22-29); Chloride 108 mmol/L (98-107); Globulin 2.9 g/dL (1.3-4.6); Glomerular Filtration Rate 127.2 mL/min (90-130); Glucose 127 mg/dL (65-115); Magnesium 1.6 mg/dL (1.7-2.3); Osmolality Calculated 293 mOsm/kg (285-295); Phosphorus 1.6 mg/dL (2.5-4.5); Sodium 141 mmol/L (136-145); Total Bilirubin 0.2 mg/dL (0.15-1.2); Total Protein 5.8 g/dL (6.6-8.7)
[2024-07-29 05:29] LABS: Anion Gap 13.1 (5-19); Potassium 3.1 mmol/L (3.5-5.1)
[2024-07-29] MEDS: venlafaxine ER (24HR) 75 mg Capsule PO (05:35)
[2024-07-29 06:40] LABS: Glucose Point of Care 137 mg/dL (70-110)
[2024-07-29 07:54] LABS: CENTROMERE B ANTIBODY <1.0 NEG AI (<1.0 NEG); JO-1 ANTIBODY <1.0 NEG AI (<1.0 NEG); RNP ANTIBODY <1.0 NEG AI (<1.0 NEG); SCL-70 ANTIBODY <1.0 NEG AI (<1.0 NEG); SJOGREN'S ANTIBODY (SS-A) <1.0 NEG AI (<1.0 NEG); SM ANTIBODY <1.0 NEG AI (<1.0 NEG); SS-B <1.0 NEG AI (<1.0 NEG)
[2024-07-29] MEDS: magnesium sulfate premix 1 GM/100 ML PIGGYBACK IV (08:53)
[2024-07-29] MEDS: amitriptyline 25 mg Tablet 50 MG PO (09:03)
[2024-07-29] MEDS: topiramate 100 mg Tablet PO ×2 (09:03→17:47)
[2024-07-29] MEDS: duloxetine 60 mg Capsule PO (09:03)
[2024-07-29] MEDS: levothyroxine 50 mcg Tablet PO (09:03)
[2024-07-29] MEDS: atorvastatin 40 mg Tablet PO (09:03)
[2024-07-29] MEDS: fenofibrate 48 mg Tablet PO (09:03)
[2024-07-29] MEDS: estradiol 1 mg Tablet PO (09:03)
[2024-07-29] MEDS: gabapentin 300 mg Capsule 600 MG PO ×3 (09:03→20:13)
--- NOTE | 2024-07-29 09:15 | P.PN_ITS ---
Subjective 2 Subjective: Postoperative day 1 status post debridement of sacral decubitus ulcer. Patient doing okay stable from the surgical standpoint. Vitals/I&O/Wt Last Vital Signs Temp 97.8 F 07/29/24 07:59 Pulse 75 07/29/24 07:59 Resp 16 07/29/24 07:59 BP 126/84 07/29/24 07:59 Pulse Ox 96 07/29/24 07:59 O2 Del Method Nasal Cannula 07/29/24 07:59 O2 Flow Rate 3 07/28/24 10:12 07/28/24 07/29/24 07/29/24 22:59 06:59 14:59 Intake Total 1100 / 1578 350 / 1928 50 / 50 Output Total 475 / 480 Balance 1100 / 1573 -125 / 1448 50 / 50 Weight last 48 hrs Weight 126 lb 9.6 oz Weight 128 lb 11.2 oz Physical Exam 2 Back/Pelvis: OTHER: Sacral 2-3 was evaluated dressing was taken down, no evidence of bleeding, there is minimal devitalized tissue at the base overlying the sacrum. Urinary Catheter Management: Price: Cath Placed During This Visit: yes Reason for Continuing Indwelling Catheter: Acute Urinary Retention or Obstruction Urinary Catheter Date of Insertion: 07/28/24 Urinary Catheter Time of Insertion: 05:15 Data 07/29/24 04:36 07/29/24 04:36 Micro: Microbiology 07/28/24 09:08 Gram Stain - Final Other Source 07/26/24 22:00 Gram Stain - Final Back Wound Culture - Preliminary Coag positive Staphylococcus A&P Assessment and plan (1) Muscle wasting: (2) Decubitus ulcer: Plan Patient is showing good progression, we will do wet-to-dry today, she can start once a day dressing with Santyl tomorrow. Patient will require continuous wound care until there is complete resolution of this wound, she can follow-up with wound care services as outpatient once she is ready for discharge. Attestations 2 Medical Necessity Statement*: Per medical team Coding Level of Care Code Acute Code for Chg Fwd Diagnoses Muscle wasting M62.50 Decubitus ulcer L89.90
[2024-07-29] MEDS: potassium phosphate (mEq K) 40 MEQ in sodium chloride 0.9% (100 ml) 100 ML 27.27 MEQ IV (09:53)
[2024-07-29] MEDS: dextrose 5%-sod chloride 0.9% 1,000 ML 75 ML IV (09:54)
[2024-07-29] MEDS: ondansetron 2 mg/ML SDV 2 mL 4 MG IVP (09:59)
[2024-07-29] MEDS: linezolid premix 600 MG/300 ML PREMIX 300 MG IV ×2 (11:02→22:26)
[2024-07-29] MEDS: morphine IR 15 mg Tablet PO (11:13)
[2024-07-29 11:46] LABS: Glucose Point of Care 171 mg/dL (70-110)
--- NOTE | 2024-07-29 14:05 | P.PN_ITS ---
Subjective 2 Subjective: Patient was seen this morning she is alert to person, to place, to time, she had significant episode of nausea and vomiting this morning, she does not feel well, no fevers, chills, has more diffuse abdominal pain, feeling unwell, we discussed her electrolyte abnormalities, with her nausea and vomiting concerning for possible early refeeding syndrome, will slowly monitor her feeds, replace electrolytes and to transition her back to clears for now Vitals/I&O/Wt Last Vital Signs Temp 97.9 F 07/29/24 11:48 Pulse 75 07/29/24 11:48 Resp 14 07/29/24 11:48 BP 129/85 07/29/24 11:48 Pulse Ox 96 07/29/24 11:48 O2 Del Method Nasal Cannula 07/29/24 11:48 O2 Flow Rate 3 07/28/24 10:12 07/28/24 07/29/24 07/29/24 22:59 06:59 14:59 Intake Total 1100 / 1578 350 / 1928 1607.50 / 1607.50 Output Total 475 / 480 Balance 1100 / 1573 -125 / 1448 1607.50 / 1607.50 Weight last 48 hrs Weight 57.425 kg Weight 58.377 kg Physical Exam 2 Const: COMMON NORMALS: no acute distress and patient oriented x3 Resp: COMMON NORMALS: normal respiratory effort, No retractions, No use of accessory muscles and clear to auscultation bilaterally AUSCULTATION: clear to auscultation bilaterally Cardio: COMMON NORMALS: regular rate, regular rhythm, S1 normal heart sound present and S2 normal heart sound present RATE: regular rate RHYTHM: r egular rhythm HEART SOUNDS: S1 normal heart sound present and S2 normal heart sound present GI: COMMON NORMALS: Normal to inspection, nondistended, normoactive bowel sounds present and non-tender Extremity: COMMON NORMALS: no pedal edema Neuro: COMMON NORMALS: patient oriented x3 Psych: COMMON NORMALS: mental status grossly normal Urinary Catheter Management: Price: Cath Placed During This Visit: yes Reason for Continuing Indwelling Catheter: Acute Urinary Retention or Obstruction Urinary Catheter Date of Insertion: 07/28/24 Urinary Catheter Time of Insertion: 05:15 Data 07/29/24 04:36 07/29/24 04:36 Micro: Microbiology 07/26/24 22:00 Gram Stain - Final Back Wound Culture - Final Methicillin Resis Staph Aureus 07/28/24 09:08 Gram Stain - Final Other Source Anaerobic Culture - Preliminary Tissue Culture - Preliminary A&P Assessment and plan (1) Deep tissue injury: (2) Type 1 diabetes: (3) Adrenal insufficiency: (4) Hypothyroid: (5) Decubitus ulcer, lower back: (6) Heel ulceration: (7) Decubitus ulcer: (8) Multiple falls: (9) Cellulitis: (10) Low body mass index (BMI): (11) Severe protein-calorie malnutrition: (12) Physical deconditioning: (13) Muscle wasting: (14) Hypotension: (15) Adult failure to thrive: (16) Acute osteomyelitis of coccyx: (17) Infection with methicillin-resistant Staphylococcus aureus (MRSA): (18) Refeeding syndrome: Plan Hypotension -Likely chronically from adrenal insufficiency as patient is on hydrocortisone and midodrine -Also component related to coccyx osteomyelitis, MRSA infection -Continue midodrine 5 mg 3 times daily -De-escalate to home hydrocortisone 10 mg 3 times daily [place]'s disease ? As above Coccyx Osetomytelitis Pelvic MRI MR/MR pelvis wo con* [id number] IMPRESSION: 1. Findings consistent with osteomyelitis in the S5 segment of the sacrum. 2. Sacral decubitus ulcer. 3. Subcutaneous soft tissue edema/cellulitis in the lower abdominal wall, bilateral groins, bilateral buttock, and right hip regions. 4. Myositis/edema in the right gluteus felipe muscle. -Tissue culture showing MRSA -continue Zosyn, Zyvox MRSA infection of sacral DTI DTI ? Sacral DTI ? Knee DTI ? DTI of ear ? Due to immobility ? Recent history of back surgery -Patient's status post I&D of sacral descriptors ulcer, measuring 5.5 x 3.5 x 2 cm, tracking all the way down to the presacral fascia ? Plan ? Due to surrounding cellulitis Zosyn, Zyvox -Tissue culture showing MRSA ? Follow surgical cultures ? Dressing changes wet-to-dry Multiple falls -CT of the head no WNL # PT OT Adult failure to thrive, muscle wasting, severe protein calorie malnutrition, physical deconditioning, BMI 16 ? Consult dietary ? IV fluids # Check magnesium level, phosphorus level, monitor electrolytes monitor for refeeding syndrome # HIV, acute hep panel negative Concern for refeeding syndrome, hypokalemia, hypomagnesemia, hypophosphatemia, nausea, vomiting -Replace electrolytes -Keep n.p.o. for now, if she can tolerate transition to clears Weight loss, BMI 16 ? Etiology sacral DTI, chronic pain Type 1 diabetes mellitus -Blood sugars are quite well-controlled -Is low BMI ? Low-dose insulin sliding scale Asthma ? Chronically on oxygen Attestations 2 Medical Necessity Statement*: Patient requires hospitalization for coccyx osteomyelitis requiring IV antibiotics, MRSA infection, adult failure to thrive, concerns for early refeeding syndrome Diagnoses Deep tissue injury T14.8XXA Type 1 diabetes E10.9 Adrenal insufficiency E27.40 Hypothyroid E03.9 Decubitus ulcer, lower back L89.109 Heel ulceration L97.409 Decubitus ulcer L89.90 Multiple falls R29.6 Cellulitis L03.90 Low body mass index (BMI) Severe protein-calorie malnutrition E43 Physical deconditioning R53.81 Muscle wasting M62.50 Hypotension I95.9 Adult failure to thrive R62.7 Acute osteomyelitis of coccyx M46.28 Infection with methicillin-resistant Staphylococcus aureus (MRSA) A49.02 Refeeding syndrome E87.8
[2024-07-29] MEDS: hydrocortisone 10 mg Tablet PO ×2 (14:44→20:12)
[2024-07-29 17:15] LABS: Glucose Point of Care 124 mg/dL (70-110)
[2024-07-29] MEDS: pantoprazole 40 mg SDV IVP (17:47)
[2024-07-29] MEDS: enoxaparin 40 mg/0.4 mL Syringe SUBCUT (20:12)
[2024-07-29] MEDS: trazodone 100 mg Tablet PO (20:13)
[2024-07-29] MEDS: zolpidem 5 mg Tablet 10 MG PO (20:13)
[2024-07-29 20:38] LABS: Glucose Point of Care 126 mg/dL (70-110)
[2024-07-30] VITALS (9 sets, daily range): BP systolic 116–124; BP diastolic 80–84; PULSE 84–88; RESP 14–19; TEMP 36.7–37.2; O2SAT 95–98
[2024-07-30] MEDS: midodrine 5 mg TABLET PO ×3 (01:52→17:27)
[2024-07-30] MEDS: dextrose 5%-sod chloride 0.9% 1,000 ML 75 ML IV (02:22)
[2024-07-30] MEDS: piperacillin-tazobactam 3.375 GM in sodium chloride 0.9% (plus) 50 ML IV (03:50)
[2024-07-30] MEDS: venlafaxine ER (24HR) 75 mg Capsule PO (05:17)
[2024-07-30 06:34] LABS: Basophils % 0.3 %; Eosinophils % 0.5 %; Hematocrit 30.8 % (36-47); Lymphocytes # 2.1 10^3/uL (0.8-4.8); Lymphocytes % 24.1 %; Mean Corpuscular HGB Conc 33.4 g/dL (30-55); Mean Corpuscular Hemoglobin 29.3 pg (27-33); Mean Corpuscular Volume 87.5 fl (85-98); Mean Platelet Volume 10.7 fL (7.4-10.4); Monocytes # 0.9 10^3/uL (0.2-0.9); Monocytes % 10.3 %; Neutrophils # 5.59 10^3/uL (1.8-7.7); Neutrophils % 63.7 %; Nucleated Red Blood Cells % 0 %; Platelet Count 228 10^3/cmm (157-399); Red Blood Count 3.52 10^6/uL (3.85-5.65); Red Cell Distribution Width 13.5 % (12.1-15.1); White Blood Count 8.78 10^3/uL (3.29-11.43)
[2024-07-30 06:37] LABS: Glucose Point of Care 104 mg/dL (70-110)
[2024-07-30 06:58] LABS: Alanine Aminotransferase 10 U/L (0-33); Albumin Level 2.8 g/dL (3.5-5.2); Alkaline Phosphatase 83 U/L (35-105); Anion Gap 12.2 (5-19); Aspartate Amino Transferase 26 U/L (0-32); Blood Urea Nitrogen 11 mg/dL (6-20); Calcium 7.7 mg/dL (8.5-10.5); Carbon Dioxide 23 mmol/L (22-29); Chloride 108 mmol/L (98-107); Creatinine Clr Calc Pharmacy 103.2682; Globulin 2.2 g/dL (1.3-4.6); Glucose 101 mg/dL (65-115); Magnesium 1.9 mg/dL (1.7-2.3); Osmolality Calculated 290 mOsm/kg (285-295); Phosphorus 1.2 mg/dL (2.5-4.5); Potassium 3.2 mmol/L (3.5-5.1); Sodium 140 mmol/L (136-145); Total Bilirubin 0.2 mg/dL (0.15-1.2)
[2024-07-30] MEDS: duloxetine 60 mg Capsule PO (09:21)
[2024-07-30] MEDS: estradiol 1 mg Tablet PO (09:21)
[2024-07-30] MEDS: topiramate 100 mg Tablet PO (09:21)
[2024-07-30] MEDS: hydrocortisone 10 mg Tablet PO ×3 (09:21→21:01)
[2024-07-30] MEDS: atorvastatin 40 mg Tablet PO (09:21)
[2024-07-30] MEDS: gabapentin 300 mg Capsule 600 MG PO ×2 (09:21→14:57)
[2024-07-30] MEDS: amitriptyline 25 mg Tablet 50 MG PO (09:21)
[2024-07-30] MEDS: fenofibrate 48 mg Tablet PO (09:21)
[2024-07-30] MEDS: collagenase oint 30 gm 1 APPLIC TOPICAL (09:22)
[2024-07-30] MEDS: levothyroxine 50 mcg Tablet PO (09:22)
[2024-07-30] MEDS: magnesium lactate 84 mg Tablet PO (09:25)
[2024-07-30] MEDS: potassium phosphate (mEq K) 40 MEQ in sodium chloride 0.9% (100 ml) 100 ML 27.27 MEQ IV (09:25)
[2024-07-30] MEDS: ondansetron 2 mg/ML SDV 2 mL 4 MG IVP (09:42)
[2024-07-30] MEDS: morphine IR 15 mg Tablet PO ×2 (09:42→23:43)
[2024-07-30] MEDS: DAPTOmycin 500 MG in sodium chloride 0.9% (100 ml) 100 ML 100 MG IV (11:00)
[2024-07-30 11:06] LABS: Glucose Point of Care 92 mg/dL (70-110)
[2024-07-30] MEDS: metoclopramide 5 mg/mL SDV 2 mL IVP (14:09)
--- NOTE | 2024-07-30 15:19 | P.PN_ITS ---
Subjective 2 Subjective: Patient was seen this morning, denies any fevers, no chills, no cough, does report weakness and fatigue, no nausea or vomiting episodes, we discussed trying clear liquid diet if she tolerates advancing to a GI soft diet, increasing the protein in her diet, starting protein shakes twice daily, replacing her electrolytes, she discussed having her sit up in a chair today, PT OT, she is agreeable, we discussed switching over to daptomycin, placing PICC line plan on 6 weeks of IV antibiotics, discussed her MRSA infection of her sacral ulcer, she voiced understanding, all questions answered Vitals/I&O/Wt Last Vital Signs Temp 98.7 F 07/30/24 12:00 Pulse 88 07/30/24 12:00 Resp 15 07/30/24 12:00 BP 119/84 07/30/24 12:00 Pulse Ox 96 07/30/24 12:00 O2 Del Method Room Air 07/30/24 12:00 O2 Flow Rate 3 07/28/24 10:12 07/30/24 07/30/24 07/30/24 06:59 14:59 22:59 Intake Total 758.5106 / 758.5106 Output Total Balance 758.5106 / 758.5106 Weight last 48 hrs Weight 58.786 kg Weight 57.425 kg Physical Exam 2 Const: COMMON NORMALS: no acute distress and patient oriented x3 Resp: COMMON NORMALS: normal respiratory effort, No retractions, No use of accessory muscles and clear to auscultation bilaterally AUSCULTATION: clear to auscultation bilaterally Cardio: COMMON NORMALS: regular rate, regular rhythm, S1 normal heart sound present and S2 normal heart sound present RATE: regular rate RHYTHM: r egular rhythm HEART SOUNDS: S1 normal heart sound present and S2 normal heart sound present GI: COMMON NORMALS: Normal to inspection, nondistended, normoactive bowel sounds present, Soft to palpation, non-tender, No hepatosplenomegaly present, no masses and no bruits PALPATION: Yes Soft to palpation and Yes No hepatosplenomegaly present Extremity: COMMON NORMALS: no pedal edema Neuro: COMMON NORMALS: patient oriented x3 Urinary Catheter Management: Price: Cath Placed During This Visit: yes Reason for Continuing Indwelling Catheter: Assist Healing of Perineal & Sacral Wounds- Incontinent Patients Urinary Catheter Date of Insertion: 07/28/24 Urinary Catheter Time of Insertion: 05:15 Data 07/30/24 06:13 07/30/24 06:13 Micro: Microbiology 07/28/24 09:08 Gram Stain - Final Other Source Anaerobic Culture - Preliminary Tissue Culture - Final Methicillin Resis Staph Aureus 07/26/24 22:00 Gram Stain - Final Back Wound Culture - Final Methicillin Resis Staph Aureus A&P Assessment and plan (1) Deep tissue injury: (2) Type 1 diabetes: (3) Adrenal insufficiency: (4) Hypothyroid: (5) Decubitus ulcer, lower back: (6) Heel ulceration: (7) Decubitus ulcer: (8) Multiple falls: (9) Cellulitis: (10) Low body mass index (BMI): (11) Severe protein-calorie malnutrition: (12) Physical deconditioning: (13) Muscle wasting: (14) Hypotension: (15) Adult failure to thrive: (16) Acute osteomyelitis of coccyx: (17) Infection with methicillin-resistant Staphylococcus aureus (MRSA): (18) Refeeding syndrome: (19) Altered mental status: Plan Altered mental status Since admission, patient continues to have quite significant drowsiness Prefers to be bedbound Plan -Possible polypharmacy -Reduce dose of trazodone 50 mg at bedtime ? Reduce dose of Elavil to 25 mg daily ? Reduce dose of Topamax to 50 mg p.o. daily ? Reduce dose of morphine to 15 mg p.o. every 8 hours as needed ? Reduce dose of Valium to 2.5 mg p.o. every 12 hours ? Reduce dose of gabapentin to 300 mg p.o. 3 times daily Hypotension, resolved -Likely chronically from adrenal insufficiency as patient is on hydrocortisone and midodrine -Also component related to coccyx osteomyelitis, MRSA infection -Continue midodrine 5 mg 3 times daily -De-escalate to home hydrocortisone 10 mg 3 times daily [place]'s disease ? As above Coccyx Osetomytelitis Pelvic MRI MR/MR pelvis wo con* [id number] IMPRESSION: 1. Findings consistent with osteomyelitis in the S5 segment of the sacrum. 2. Sacral decubitus ulcer. 3. Subcutaneous soft tissue edema/cellulitis in the lower abdominal wall, bilateral groins, bilateral buttock, and right hip regions. 4. Myositis/edema in the right gluteus felipe muscle. -Tissue culture showing MRSA -Surgical cultures growing MRSA -Switch to daptomycin, 6 weeks, from 07/28/2024 -Order placed for PICC line MRSA infection of sacral DTI DTI ? Sacral DTI ? Knee DTI ? DTI of ear ? Due to immobility ? Recent history of back surgery -Patient's status post I&D of sacral descriptors ulcer, measuring 5.5 x 3.5 x 2 cm, tracking all the way down to the presacral fascia ? Plan ? Due to surrounding cellulitis Zosyn, Zyvox -Tissue culture showing MRSA, surgical cultures growing MRSA ? Follow surgical cultures ? Dressing changes wet-to-dry Multiple falls -CT of the head no WNL # PT OT Adult failure to thrive, muscle wasting, severe protein calorie malnutrition, physical deconditioning, BMI 16 ? Consult dietary # Check magnesium level, phosphorus level, monitor electrolytes monitor for refeeding syndrome # HIV, acute hep panel negative Concern for refeeding syndrome, hypokalemia, hypomagnesemia, hypophosphatemia, nausea, vomiting -Replace electrolytes -Advance from clears to GI soft diet, protein shakes twice daily, start Remeron for appetite stimulant Weight loss, BMI 16 ? Etiology sacral DTI, chronic pain Type 1 diabetes mellitus -Blood sugars are quite well-controlled -Is low BMI ? Low-dose insulin sliding scale Asthma ? Chronically on oxygen Plan for today, switch to daptomycin, order placed for PICC line reduced dose of psychotropic medications, PT OT, advance diet, replace electrolytes, Attestations 2 Medical Necessity Statement*: Patient requires hospitalization for coccyx osteomyelitis, MRSA infection of sacral DTI, requiring IV antibiotics, Diagnoses Deep tissue injury T14.8XXA Type 1 diabetes E10.9 Adrenal insufficiency E27.40 Hypothyroid E03.9 Decubitus ulcer, lower back L89.109 Heel ulceration L97.409 Decubitus ulcer L89.90 Multiple falls R29.6 Cellulitis L03.90 Low body mass index (BMI) Severe protein-calorie malnutrition E43 Physical deconditioning R53.81 Muscle wasting M62.50 Hypotension I95.9 Adult failure to thrive R62.7 Acute osteomyelitis of coccyx M46.28 Infection with methicillin-resistant Staphylococcus aureus (MRSA) A49.02 Refeeding syndrome E87.8 Altered mental status R41.82
[2024-07-30] MEDS: diazePAM 5 mg Tablet 2.5 MG PO (15:36)
[2024-07-30 16:47] LABS: Glucose Point of Care 93 mg/dL (70-110)
[2024-07-30] MEDS: pantoprazole 40 mg SDV IVP (17:27)
[2024-07-30] MEDS: topiramate 25 mg Tablet 50 MG PO (17:28)
[2024-07-30 20:12] LABS: Glucose Point of Care 100 mg/dL (70-110)
[2024-07-30] MEDS: enoxaparin 40 mg/0.4 mL Syringe SUBCUT (21:00)
[2024-07-30] MEDS: amitriptyline 25 mg Tablet PO (21:01)
[2024-07-30] MEDS: gabapentin 300 mg Capsule PO (21:01)
[2024-07-30] MEDS: mirtazapine 15 mg Tablet PO (21:01)
[2024-07-31] VITALS (8 sets, daily range): BP systolic 119–129; BP diastolic 77–87; PULSE 80–88; RESP 14–18; TEMP 36.8–37; O2SAT 93–99
--- NOTE | 2024-07-31 00:11 | PC.NURSE ---
trazodone and ambiem held due to pt sleepy and difficult to wake up. near midnight while vitals are being taken pt c/o pain to back and sacral area, morphine given, nurse asked if pt having trouble sleeping ( pt presumed to be asleep during rounding due to no response when name is called)pt denied difficulty sleeping. trazodone and ambiem marked as non-admin
[2024-07-31] MEDS: midodrine 5 mg TABLET PO ×3 (02:13→17:37)
[2024-07-31 05:52] LABS: Basophils % 0.1 %; Eosinophils % 0.3 %; Hematocrit 33.4 % (36-47); Lymphocytes # 2.3 10^3/uL (0.8-4.8); Lymphocytes % 34.1 %; Mean Corpuscular HGB Conc 30.8 g/dL (30-55); Mean Corpuscular Hemoglobin 28.4 pg (27-33); Mean Platelet Volume 10.2 fL (7.4-10.4); Monocytes # 0.6 10^3/uL (0.2-0.9); Monocytes % 9.5 %; Neutrophils # 3.77 10^3/uL (1.8-7.7); Neutrophils % 55.7 %; Nucleated Red Blood Cells % 0 %; Platelet Count 252 10^3/cmm (157-399); Red Blood Count 3.63 10^6/uL (3.85-5.65); Red Cell Distribution Width 13.6 % (12.1-15.1); White Blood Count 6.77 10^3/uL (3.29-11.43)
[2024-07-31 06:21] LABS: Alanine Aminotransferase 12 U/L (0-33); Albumin Level 2.8 g/dL (3.5-5.2); Alkaline Phosphatase 89 U/L (35-105); Anion Gap 9.3 (5-19); Aspartate Amino Transferase 31 U/L (0-32); Blood Urea Nitrogen 11 mg/dL (6-20); Calcium 7.9 mg/dL (8.5-10.5); Carbon Dioxide 26 mmol/L (22-29); Chloride 108 mmol/L (98-107); Creatinine Clr Calc Pharmacy 103.0899; Globulin 2.8 g/dL (1.3-4.6); Glucose 81 mg/dL (65-115); Osmolality Calculated 288 mOsm/kg (285-295); Phosphorus 1.9 mg/dL (2.5-4.5); Potassium 3.3 mmol/L (3.5-5.1); Sodium 140 mmol/L (136-145); Total Bilirubin 0.4 mg/dL (0.15-1.2); Total Protein 5.6 g/dL (6.6-8.7)
[2024-07-31 06:35] LABS: Glucose Point of Care 81 mg/dL (70-110)
[2024-07-31] MEDS: levothyroxine 50 mcg Tablet PO (08:45)
[2024-07-31] MEDS: atorvastatin 40 mg Tablet PO (08:45)
[2024-07-31] MEDS: hydrocortisone 10 mg Tablet PO ×3 (08:45→20:47)
[2024-07-31] MEDS: estradiol 1 mg Tablet PO (08:45)
[2024-07-31] MEDS: magnesium lactate 84 mg Tablet PO (08:45)
[2024-07-31] MEDS: fenofibrate 48 mg Tablet PO (08:45)
[2024-07-31] MEDS: morphine IR 15 mg Tablet PO (08:46)
[2024-07-31] MEDS: duloxetine 60 mg Capsule PO (08:47)
[2024-07-31] MEDS: topiramate 25 mg Tablet 50 MG PO ×2 (08:47→17:38)
[2024-07-31] MEDS: potassium phosphate (mEq K) 40 MEQ in sodium chloride 0.9% (100 ml) 100 ML 27.27 MEQ IV (08:47)
[2024-07-31] MEDS: gabapentin 300 mg Capsule PO ×3 (10:26→20:47)
[2024-07-31] MEDS: ondansetron 4 MG Tablet PO (11:09)
[2024-07-31 11:36] LABS: Glucose Point of Care 96 mg/dL (70-110)
--- NOTE | 2024-07-31 11:52 | XR_ITS ---
WS: [id number] XR chest 1V portable [id number] REASON FOR EXAM: Post PICC insertion FINDINGS: Diffuse bilateral reticular interstitial lung opacities with lung consolidation and/or pleural effusi on in the left lower hemithorax. A right arm PICC line has been placed. The tip of the catheter is in the distal superior vena cava in proper position for use. XR/XR chest 1V portable [id number] IMPRESSION: Properly positioned right arm PICC line as above. Catheter tip position was dis cussed with the x-ray technologist at 12:35 p.m.
--- NOTE | 2024-07-31 12:30 | PICC.NOTE ---
Single lumen PICC placed to right basilic vein. Referred to vascular access nurse for PICC placement due to need for IV antibiotics x 6 weeks. Risks and benefits discussed and informed consent obtained from pt. Right arm assessed with right basilic vein measuring 3.3 mm, straight, and apparent best choice for placement. Using sterile technique and MST, right basilic vein accessed x 1 stick. Mid-arm circumference measured 10 cm from right AC 22 cm. Trimmed cath 36 cm with 0 cm external length noted. CXR shows tip in distal SVC, in good position for use per radiologist. Line secured with stat-lock. Insertion site covered with Biopatch and TSM. Report given to bedside nurse, KATTY Fields.
[2024-07-31] MEDS: DAPTOmycin 500 MG in sodium chloride 0.9% (100 ml) 100 ML 100 MG IV (13:00)
[2024-07-31] MEDS: collagenase oint 30 gm 1 APPLIC TOPICAL (13:01)
--- NOTE | 2024-07-31 15:41 | PC.OT ---
OT TREATMENT ATTEMPTED. PATIENT IS NAUSEATED AND IN PAIN. NURSING INFORMED.
--- NOTE | 2024-07-31 16:29 | P.PN_ITS ---
Subjective 2 Subjective: Patient was seen this morning, she is much more alert awake, denies any fevers, no chills, no cough we discussed getting her up into a chair today Vitals/I&O/Wt Last Vital Signs Temp 98.3 F 07/31/24 15:31 Pulse 88 07/31/24 15:31 Resp 14 07/31/24 15:31 BP 129/87 07/31/24 15:31 Pulse Ox 99 07/31/24 15:31 O2 Del Method Room Air 07/31/24 15:31 O2 Flow Rate 3 07/28/24 10:12 07/31/24 07/31/24 07/31/24 06:59 14:59 22:59 Intake Total 120 / 878.5106 480 / 275 452.4954 / 688.5106 Output Total 350 / 1500 Balance -230 / -621.4894 480 / 508 046.3456 / 688.5106 Weight last 48 hrs Weight 58.513 kg Weight 58.786 kg Physical Exam 2 Const: COMMON NORMALS: no acute distress and patient oriented x3 Resp: COMMON NORMALS: normal respiratory effort, No retractions, No use of accessory muscles and clear to auscultation bilaterally AUSCULTATION: clear to auscultation bilaterally Cardio: COMMON NORMALS: regular rate, regular rhythm, S1 normal heart sound present and S2 normal heart sound present RATE: regular rate RHYTHM: r egular rhythm HEART SOUNDS: S1 normal heart sound present and S2 normal heart sound present GI: COMMON NORMALS: Normal to inspection, nondistended, normoactive bowel sounds present and non-tender Extremity: COMMON NORMALS: no pedal edema Neuro: COMMON NORMALS: patient oriented x3 Psych: COMMON NORMALS: mental status grossly normal Urinary Catheter Management: Price: Cath Placed During This Visit: yes Reason for Continuing Indwelling Catheter: Assist healing open wound Urinary Catheter Date of Insertion: 07/28/24 Urinary Catheter Time of Insertion: 05:15 Data 07/31/24 05:16 07/31/24 05:16 Micro: Microbiology 07/28/24 09:08 Gram Stain - Final Other Source Anaerobic Culture - Preliminary Tissue Culture - Final Methicillin Resis Staph Aureus A&P Assessment and plan (1) Deep tissue injury: (2) Type 1 diabetes: (3) Adrenal insufficiency: (4) Hypothyroid: (5) Decubitus ulcer, lower back: (6) Heel ulceration: (7) Decubitus ulcer: (8) Multiple falls: (9) Cellulitis: (10) Low body mass index (BMI): (11) Severe protein-calorie malnutrition: (12) Physical deconditioning: (13) Muscle wasting: (14) Hypotension: (15) Adult failure to thrive: (16) Acute osteomyelitis of coccyx: (17) Infection with methicillin-resistant Staphylococcus aureus (MRSA): (18) Refeeding syndrome: (19) Altered mental status: Plan Altered mental status Since admission, patient continues to have quite significant drowsiness Prefers to be bedbound Plan -Possible polypharmacy -Reduce dose of trazodone 50 mg at bedtime ? Reduce dose of Elavil to 25 mg daily ? Reduce dose of Topamax to 50 mg p.o. daily ? Reduce dose of morphine to 15 mg p.o. every 8 hours as needed ? Reduce dose of Valium to 2.5 mg p.o. every 12 hours ? Reduce dose of gabapentin to 300 mg p.o. 3 times daily Hypotension, resolved -Likely chronically from adrenal insufficiency as patient is on hydrocortisone and midodrine -Also component related to coccyx osteomyelitis, MRSA infection -Continue midodrine 5 mg 3 times daily -De-escalate to home hydrocortisone 10 mg 3 times daily [place]'s disease ? As above Coccyx Osetomytelitis Pelvic MRI MR/MR pelvis wo con* [id number] IMPRESSION: 1. Findings consistent with osteomyelitis in the S5 segment of the sacrum. 2. Sacral decubitus ulcer. 3. Subcutaneous soft tissue edema/cellulitis in the lower abdominal wall, bilateral groins, bilateral buttock, and right hip regions. 4. Myositis/edema in the right gluteus felipe muscle. -Tissue culture showing MRSA -Surgical cultures growing MRSA -Switch to daptomycin, 6 weeks, from 07/28/2024 -Order placed for PICC line MRSA infection of sacral DTI DTI ? Sacral DTI ? Knee DTI ? DTI of ear ? Due to immobility ? Recent history of back surgery -Patient's status post I&D of sacral descriptors ulcer, measuring 5.5 x 3.5 x 2 cm, tracking all the way down to the presacral fascia ? Plan ? Due to surrounding cellulitis Zosyn, Zyvox -Tissue culture showing MRSA, surgical cultures growing MRSA ? Follow surgical cultures ? Dressing changes wet-to-dry Multiple falls -CT of the head no WNL # PT OT Adult failure to thrive, muscle wasting, severe protein calorie malnutrition, physical deconditioning, BMI 16 ? Consult dietary # Check magnesium level, phosphorus level, monitor electrolytes monitor for refeeding syndrome # HIV, acute hep panel negative Concern for refeeding syndrome, hypokalemia, hypomagnesemia, hypophosphatemia, nausea, vomiting -Replace electrolytes -Advance from clears to GI soft diet, protein shakes twice daily, start Remeron for appetite stimulant Weight loss, BMI 16 ? Etiology sacral DTI, chronic pain Type 1 diabetes mellitus -Blood sugars are quite well-controlled -Is low BMI ? Low-dose insulin sliding scale Asthma ? Chronically on oxygen Plan for today, PICC line placement, continue daptomycin, replace electrolytes Attestations 2 Medical Necessity Statement*: Patient requires hospitalization for sacral DTI with osteomyelitis, wound culture showing MRSA requiring IV antibiotics Diagnoses Deep tissue injury T14.8XXA Type 1 diabetes E10.9 Adrenal insufficiency E27.40 Hypothyroid E03.9 Decubitus ulcer, lower back L89.109 Heel ulceration L97.409 Decubitus ulcer L89.90 Multiple falls R29.6 Cellulitis L03.90 Low body mass index (BMI) Severe protein-calorie malnutrition E43 Physical deconditioning R53.81 Muscle wasting M62.50 Hypotension I95.9 Adult failure to thrive R62.7 Acute osteomyelitis of coccyx M46.28 Infection with methicillin-resistant Staphylococcus aureus (MRSA) A49.02 Refeeding syndrome E87.8 Altered mental status R41.82
[2024-07-31 16:33] LABS: Glucose Point of Care 95 mg/dL (70-110)
[2024-07-31] MEDS: pantoprazole 40 mg SDV IVP (17:37)
--- NOTE | 2024-07-31 18:53 | PC.NURSE ---
Replaced 16fr patterson catheter at 1845 d/t retaining 411 on bladder scan per Dr. Lai telephone order.
[2024-07-31] MEDS: enoxaparin 40 mg/0.4 mL Syringe SUBCUT (20:46)
[2024-07-31] MEDS: mirtazapine 15 mg Tablet PO (20:47)
[2024-07-31] MEDS: zolpidem 5 mg Tablet 10 MG PO (20:47)
[2024-07-31] MEDS: amitriptyline 25 mg Tablet PO (20:47)
[2024-07-31] MEDS: trazodone 50 mg Tablet PO (20:47)
[2024-07-31 20:48] LABS: Glucose Point of Care 129 mg/dL (70-110)
[2024-08-01] VITALS (8 sets, daily range): BP systolic 95–136; BP diastolic 64–90; PULSE 74–84; RESP 16–20; TEMP 36.4–37.2; O2SAT 95–98
[2024-08-01] MEDS: midodrine 5 mg TABLET PO ×3 (01:39→17:20)
[2024-08-01 06:02] LABS: Eosinophils % 0.5 %; Hematocrit 31.8 % (36-47); Lymphocytes # 2.2 10^3/uL (0.8-4.8); Lymphocytes % 38.3 %; Mean Corpuscular HGB Conc 30.8 g/dL (30-55); Mean Corpuscular Hemoglobin 27.8 pg (27-33); Mean Corpuscular Volume 90.3 fl (85-98); Mean Platelet Volume 10.6 fL (7.4-10.4); Monocytes # 0.5 10^3/uL (0.2-0.9); Neutrophils # 2.99 10^3/uL (1.8-7.7); Nucleated Red Blood Cells % 0 %; Platelet Count 260 10^3/cmm (157-399); Red Blood Count 3.52 10^6/uL (3.85-5.65); Red Cell Distribution Width 13.7 % (12.1-15.1); White Blood Count 5.75 10^3/uL (3.29-11.43)
[2024-08-01 06:15] LABS: Alanine Aminotransferase 9 U/L (0-33); Albumin Level 2.8 g/dL (3.5-5.2); Alkaline Phosphatase 79 U/L (35-105); Anion Gap 13.6 (5-19); Aspartate Amino Transferase 24 U/L (0-32); Blood Urea Nitrogen 11 mg/dL (6-20); Calcium 7.8 mg/dL (8.5-10.5); Carbon Dioxide 22 mmol/L (22-29); Chloride 107 mmol/L (98-107); Creatinine Clr Calc Pharmacy 123.8858; Globulin 2.6 g/dL (1.3-4.6); Glomerular Filtration Rate 127.2 mL/min (90-130); Glucose 89 mg/dL (65-115); Osmolality Calculated 287 mOsm/kg (285-295); Phosphorus 2.6 mg/dL (2.5-4.5); Potassium 3.6 mmol/L (3.5-5.1); Sodium 139 mmol/L (136-145); Total Bilirubin 0.3 mg/dL (0.15-1.2); Total Protein 5.4 g/dL (6.6-8.7)
[2024-08-01 06:32] LABS: Glucose Point of Care 89 mg/dL (70-110)
[2024-08-01] MEDS: fenofibrate 48 mg Tablet PO (09:05)
[2024-08-01] MEDS: estradiol 1 mg Tablet PO (09:05)
[2024-08-01] MEDS: hydrocortisone 10 mg Tablet PO ×3 (09:05→20:07)
[2024-08-01] MEDS: levothyroxine 50 mcg Tablet PO (09:05)
[2024-08-01] MEDS: topiramate 25 mg Tablet 50 MG PO ×2 (09:05→17:20)
[2024-08-01] MEDS: magnesium lactate 84 mg Tablet PO (09:05)
[2024-08-01] MEDS: gabapentin 300 mg Capsule PO ×3 (09:06→20:07)
[2024-08-01] MEDS: atorvastatin 40 mg Tablet PO (09:06)
[2024-08-01] MEDS: duloxetine 60 mg Capsule PO (09:06)
[2024-08-01] MEDS: DAPTOmycin 500 MG in sodium chloride 0.9% (100 ml) 100 ML 100 MG IV (09:09)
[2024-08-01] MEDS: ondansetron 4 MG Tablet PO (11:18)
[2024-08-01 11:33] LABS: Glucose Point of Care 95 mg/dL (70-110)
--- NOTE | 2024-08-01 13:59 | P.PN_ITS ---
Subjective 2 Medications: Medication Review Details: Patient was seen this morning, she has no complaints this morning, no fevers, no chills, no cough we discussed repositioning, having her ambulate with physical therapy up into a chair if she is agreeable Vitals/I&O/Wt Last Vital Signs Temp 97.5 F L 08/01/24 07:21 Pulse 83 08/01/24 11:32 Resp 17 08/01/24 07:21 BP 136/90 08/01/24 11:32 Pulse Ox 95 08/01/24 11:32 O2 Del Method Room Air 08/01/24 07:21 O2 Flow Rate 3 07/28/24 10:12 07/31/24 08/01/24 08/01/24 22:59 06:59 14:59 Intake Total 448.5106 / 928.5106 240 / 1168.5106 100 / 100 Output Total 1250 / 1250 300 / 1550 Balance -801.4894 / -321.4894 -60 / -381.4894 100 / 100 Weight last 48 hrs Weight 58.74 kg Weight 58.513 kg Physical Exam 2 Const: COMMON NORMALS: no acute distress and patient oriented x3 Resp: COMMON NORMALS: normal respiratory effort, No retractions, No use of accessory muscles and clear to auscultation bilaterally AUSCULTATION: clear to auscultation bilaterally Cardio: COMMON NORMALS: regular rate, regular rhythm, S1 normal heart sound present and S2 normal heart sound present RATE: regular rate RHYTHM: r egular rhythm HEART SOUNDS: S1 normal heart sound present and S2 normal heart sound present GI: COMMON NORMALS: Normal to inspection, nondistended, normoactive bowel sounds present and non-tender Extremity: COMMON NORMALS: no pedal edema Neuro: COMMON NORMALS: patient oriented x3 Psych: COMMON NORMALS: mental status grossly normal Urinary Catheter Management: Price: Cath Placed During This Visit: yes Reason for Continuing Indwelling Catheter: Acute Urinary Retention or Obstruction Urinary Catheter Date of Insertion: 07/31/24 Urinary Catheter Time of Insertion: 18:45 Data 08/01/24 05:11 08/01/24 05:11 Micro: Microbiology 07/28/24 09:08 Gram Stain - Final Other Source Anaerobic Culture - Preliminary Tissue Culture - Final Methicillin Resis Staph Aureus 07/26/24 20:45 Blood Culture - Final Blood NO GROWTH AFTER 5 DAYS 07/26/24 20:37 Blood Culture - Final Blood NO GROWTH AFTER 5 DAYS A&P Assessment and plan (1) Deep tissue injury: (2) Type 1 diabetes: (3) Adrenal insufficiency: (4) Hypothyroid: (5) Decubitus ulcer, lower back: (6) Heel ulceration: (7) Decubitus ulcer: (8) Multiple falls: (9) Cellulitis: (10) Low body mass index (BMI): (11) Severe protein-calorie malnutrition: (12) Physical deconditioning: (13) Muscle wasting: (14) Hypotension: (15) Adult failure to thrive: (16) Acute osteomyelitis of coccyx: (17) Infection with methicillin-resistant Staphylococcus aureus (MRSA): (18) Refeeding syndrome: (19) Altered mental status: Plan Altered mental status, resolved Since admission, patient continues to have quite significant drowsiness Prefers to be bedbound Plan -Possible polypharmacy -Reduce dose of trazodone 50 mg at bedtime ? Reduce dose of Elavil to 25 mg daily ? Reduce dose of Topamax to 50 mg p.o. daily ? Reduce dose of morphine to 15 mg p.o. every 8 hours as needed ? Reduce dose of Valium to 2.5 mg p.o. every 12 hours ? Reduce dose of gabapentin to 300 mg p.o. 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 Findings consistent with osteomyelitis in the S5 segment of the sacrum. 2. Sacral decubitus ulcer. 3. Subcutaneous soft tissue edema/cellulitis in the lower abdominal wall, bilateral groins, bilateral buttock, and right hip regions. 4. Myositis/edema in the right gluteus felipe muscle. -Tissue culture showing MRSA -Surgical cultures growing MRSA -Switch to daptomycin, 6 weeks, from 07/28/2024 -Order placed for PICC line MRSA infection of sacral DTI DTI ? Sacral DTI ? Knee DTI ? DTI of ear ? Due to immobility ? Recent history of back surgery -Patient's status post I&D of sacral descriptors ulcer, measuring 5.5 x 3.5 x 2 cm, tracking all the way down to the presacral fascia ? Plan ? Due to surrounding cellulitis Zosyn, Zyvox -Tissue culture showing MRSA, surgical cultures growing MRSA ? Follow surgical cultures ? Dressing changes wet-to-dry Multiple falls -CT of the head no WNL # PT OT Adult failure to thrive, muscle wasting, severe protein calorie malnutrition, physical deconditioning, BMI 16 ? Consult dietary # Check magnesium level, phosphorus level, monitor electrolytes monitor for refeeding syndrome # HIV, acute hep panel negative Concern for refeeding syndrome, hypokalemia, hypomagnesemia, hypophosphatemia, nausea, vomiting -Replace electrolytes -Advance from clears to GI soft diet, protein shakes twice daily, start Remeron for appetite stimulant Weight loss, BMI 16 ? Etiology sacral DTI, chronic pain Type 1 diabetes mellitus -Blood sugars are quite well-controlled -Is low BMI ? Low-dose insulin sliding scale Asthma ? Chronically on oxygen Plan for today, continue daptomycin, replace electrolytes Attestations 2 Medical Necessity Statement*: Patient requires hospitalization for sacral DTI with osteomyelitis MRSA infection requiring IV antibiotics Diagnoses Deep tissue injury T14.8XXA Type 1 diabetes E10.9 Adrenal insufficiency E27.40 Hypothyroid E03.9 Decubitus ulcer, lower back L89.109 Heel ulceration L97.409 Decubitus ulcer L89.90 Multiple falls R29.6 Cellulitis L03.90 Low body mass index (BMI) Severe protein-calorie malnutrition E43 Physical deconditioning R53.81 Muscle wasting M62.50 Hypotension I95.9 Adult failure to thrive R62.7 Acute osteomyelitis of coccyx M46.28 Infection with methicillin-resistant Staphylococcus aureus (MRSA) A49.02 Refeeding syndrome E87.8 Altered mental status R41.82
[2024-08-01 15:30] LABS: ANA SCREEN, IFA NEGATIVE (NEGATIVE)
[2024-08-01] MEDS: collagenase oint 30 gm 1 APPLIC TOPICAL (15:51)
[2024-08-01 16:09] LABS: Glucose Point of Care 97 mg/dL (70-110)
[2024-08-01] MEDS: pantoprazole 40 mg SDV IVP (17:20)
[2024-08-01] MEDS: metoclopramide 5 mg/mL SDV 2 mL IVP (17:24)
[2024-08-01] MEDS: mirtazapine 15 mg Tablet PO (20:07)
[2024-08-01] MEDS: zolpidem 5 mg Tablet PO (20:07)
[2024-08-01] MEDS: trazodone 50 mg Tablet PO (20:07)
[2024-08-01] MEDS: enoxaparin 40 mg/0.4 mL Syringe SUBCUT (20:07)
[2024-08-01] MEDS: amitriptyline 25 mg Tablet PO (20:08)
[2024-08-01 20:34] LABS: Glucose Point of Care 103 mg/dL (70-110)
[2024-08-01] MEDS: morphine IR 15 mg Tablet PO (23:41)
[2024-08-02] VITALS: BP 127/85; PULSE 89; RESP 20; TEMP 37.2; O2SAT 97
[2024-08-02] MEDS: midodrine 5 mg TABLET PO ×2 (01:53→08:09)
[2024-08-02 04:00] VITALS: BP 113/73; PULSE 100; RESP 20; TEMP 37.1; O2SAT 92
[2024-08-02 05:54] LABS: Eosinophils % 0.3 %; Hematocrit 31.5 % (36-47); Lymphocytes # 1.5 10^3/uL (0.8-4.8); Lymphocytes % 23.3 %; Mean Corpuscular HGB Conc 32.7 g/dL (30-55); Mean Corpuscular Hemoglobin 28.5 pg (27-33); Mean Platelet Volume 9.9 fL (7.4-10.4); Monocytes # 0.5 10^3/uL (0.2-0.9); Neutrophils # 4.42 10^3/uL (1.8-7.7); Neutrophils % 69.2 %; Nucleated Red Blood Cells % 0 %; Platelet Count 239 10^3/cmm (157-399); Red Blood Count 3.62 10^6/uL (3.85-5.65); Red Cell Distribution Width 13.6 % (12.1-15.1); White Blood Count 6.39 10^3/uL (3.29-11.43)
[2024-08-02 06:00] VITALS: BMI 17.4
[2024-08-02 06:16] LABS: Alanine Aminotransferase 10 U/L (0-33); Albumin Level 3.1 g/dL (3.5-5.2); Alkaline Phosphatase 75 U/L (35-105); Aspartate Amino Transferase 20 U/L (0-32); Blood Urea Nitrogen 7 mg/dL (6-20); Carbon Dioxide 24 mmol/L (22-29); Chloride 107 mmol/L (98-107); Creatinine Clr Calc Pharmacy 103.2382; Glucose 95 mg/dL (65-115); Magnesium 2.1 mg/dL (1.7-2.3); Osmolality Calculated 286 mOsm/kg (285-295); Phosphorus 2.5 mg/dL (2.5-4.5); Sodium 139 mmol/L (136-145); Total Bilirubin 0.4 mg/dL (0.15-1.2); Total Protein 5.1 g/dL (6.6-8.7)
[2024-08-02 06:19] LABS: Anion Gap 11.5 (5-19); Potassium 3.5 mmol/L (3.5-5.1)
[2024-08-02 06:48] LABS: Glucose Point of Care 98 mg/dL (70-110)
[2024-08-02 07:14] VITALS: BP 135/91; PULSE 99; RESP 16; TEMP 36.8; O2SAT 97
[2024-08-02] MEDS: gabapentin 300 mg Capsule PO (08:09)
[2024-08-02] MEDS: atorvastatin 40 mg Tablet PO (08:09)
[2024-08-02] MEDS: fenofibrate 48 mg Tablet PO (08:09)
[2024-08-02] MEDS: topiramate 25 mg Tablet 50 MG PO (08:09)
[2024-08-02] MEDS: duloxetine 60 mg Capsule PO (08:09)
[2024-08-02] MEDS: hydrocortisone 10 mg Tablet PO (08:09)
[2024-08-02] MEDS: estradiol 1 mg Tablet PO (08:09)
[2024-08-02] MEDS: magnesium lactate 84 mg Tablet PO (08:09)
[2024-08-02] MEDS: ondansetron 4 MG Tablet PO (08:10)
[2024-08-02] MEDS: morphine IR 15 mg Tablet PO (08:10)
[2024-08-02] MEDS: levothyroxine 50 mcg Tablet PO (08:10)
[2024-08-02] MEDS: collagenase oint 30 gm 1 APPLIC TOPICAL (08:11)
--- NOTE | 2024-08-02 09:26 | P.DS_ITS ---
Discharge Providers Date of Admission: 07/26/24 19:12 Date of Discharge: August 02, 2024 Attending Provider at Admission: Praful Lai MD Attending Provider at Discharge: Praful Lai MD Primary Care Provider: Neda Hurt APN Diagnoses at Discharge Discharge Diagnosis (1) Deep tissue injury: Status: Resolved (2) Type 1 diabetes: Status: Acute (3) Adrenal insufficiency: Status: Acute (4) Hypothyroid: Status: Acute (5) Decubitus ulcer, lower back: Status: Resolved (6) Heel ulceration: Status: Acute (7) Decubitus ulcer: Status: Acute (8) Multiple falls: Status: Resolved (9) Cellulitis: Status: Acute (10) Low body mass index (BMI): Status: Acute (11) Severe protein-calorie malnutrition: Status: Acute (12) Physical deconditioning: Status: Acute (13) Muscle wasting: Status: Resolved (14) Hypotension: Status: Resolved (15) Adult failure to thrive: Status: Acute (16) Acute osteomyelitis of coccyx: Status: Acute (17) Infection with methicillin-resistant Staphylococcus aureus (MRSA): Status: Resolved (18) Refeeding syndrome: Status: Acute (19) Altered mental status: Status: Resolved Reason for Visit Reason for Visit: HYPOTENSIVE Hospital Course Hospital Course Edwin Gama is a 59 year old female with a past medical history of adrenal insufficiency, on midodrine, hydrocortisone, recent history of laminectomy, history of depression, headaches, multiple falls, asthma, who presents [facility] due to weakness, fatigue, malaise, poor appetite, falls, multiple sacral DTI's. Currently patient is alert oriented x 3, following all commands, her biggest complaint is pain over her sacral DTI, DTI on her knee, DTI on her ear, due to being in bed for a prolonged period of time.. Patient tells me that she is generally weak, has unsteadiness on her feet, she has had multiple falls she has generalized pain, especially over sacral DTI, she is more bedbound, she tries to reposition she can ambulate, she has had a poor appetite, denies any fevers, does report chills, does report nausea, no vomiting, does report poor appetite, reports weight loss, Please look at my prior progress note for further details as patient had a prolonged hospitalization Patient was admitted to [facility] for coccyx osteomyelitis, with sacral DTI requiring inpatient admission for IV antibiotics, debridement, MRI showing evidence of osteomyelitis, she was discharged on 6 weeks of daptomycin, PICC line in place, culture showing MRSA, wound care through senior living facility follow-up with Dr. Dietz, and Dr. Gutierrez as outpatient Deconditioning, protein calorie malnutrition, discharged to senior living facility for rehab For her altered mental status, episodes of drowsiness, concerns for polypharmacy, her doses of psychotropic medications have been decreased -Reduce dose of trazodone 50 mg at bedtime ? Reduce dose of Elavil to 25 mg daily ? Reduce dose of Topamax to 50 mg p.o. daily ? Reduce dose of morphine to 15 mg p.o. every 8 hours as needed ? Reduce dose of Valium to 2.5 mg p.o. every 12 hours ? Reduce dose of gabapentin to 300 mg p.o. 3 times daily There was concern for refeeding syndrome during hospitalization, required IV replacement, resolved on discharge Weight loss, BMI 16, seen by dietary, encourage p.o. intake, discharged on protein shakes twice daily, monitoring electrolytes as outpatient, discharged to rehab facility Physical Exam Const: COMMON NORMALS: no acute distress and patient oriented x3 Resp: COMMON NORMALS: normal respiratory effort, No retractions, No use of accessory muscles and clear to auscultation bilaterally AUSCULTATION: clear to auscultation bilaterally Cardio: COMMON NORMALS: regular rate, regular rhythm, S1 normal heart sound present and S2 normal heart sound present RATE: regular rate RHYTHM: regular rhythm HEART SOUNDS: S1 normal heart sound present and S2 normal heart sound present GI: COMMON NORMALS: Normal to inspection, nondistended, normoactive bowel sounds present and non-tender Extremity: COMMON NORMALS: no pedal edema Neuro: COMMON NORMALS: patient oriented x3 Psych: COMMON NORMALS: mental status grossly normal Urinary Catheter Management: Price: Cath Placed During This Visit: yes Reason for Continuing Indwelling Catheter: Acute Urinary Retention or Obstruction Urinary Catheter Date of Insertion: 07/31/24 Urinary Catheter Time of Insertion: 18:45 Discharge Data Studies Completed and Pending Completed Studies During Hospitalization Category Date Time Status CT abdomen pelvis w con* [id number] Stat Cat Scan 07/26/24 14:[address] head wo con* [id number] Stat Cat Scan 07/26/24 18:04 Completed CXRP [XR chest 1V portable [id number]] Routine Exams 07/31/24 11:52 Completed XR chest 1V portable [id number] Stat Exams 07/26/24 14:59 Completed MR pelvis wo con* [id number] Routine MRI 07/27/24 15:16 [place] [id number] Routine Ultrasound 07/27/24 15:08 Completed Pending at discharge Category Date Time Status GABE Profile Rheumatology Stat Lab 07/26/24 20:37 Results Anaerobic Culture Routine Lab 07/28/24 09:08 Results COVID [SARS Covid-2 Antigen] Routine Lab 08/02/24 08:21 Uncollected Complete Blood Count w/Auto AM LABS Lab 08/03/24 04:00 Ordered Complete Blood Count w/Auto AM LABS Lab 08/04/24 04:00 Ordered Comprehensive Metabolic Panel AM LABS Lab 08/03/24 04:00 Ordered Comprehensive Metabolic Panel AM LABS Lab 08/04/24 04:00 Ordered Magnesium AM LABS Lab 08/03/24 04:00 Ordered Magnesium AM LABS Lab 08/04/24 04:00 Ordered Phosphorus AM LABS Lab 08/03/24 04:00 Ordered Phosphorus AM LABS Lab 08/04/24 04:00 Ordered Tissue Culture and Gram Stain Routine Lab 07/28/24 09:08 Results Radiology Impressions Abdomen/Pelvis CT 07/26/24 14:59 IMPRESSION: 1. Moderate intrahepatic biliary ductal dilation, which may be related to cholecystectomy status. Consider follow-up with contrast-enhanced MRCP to exclude obstructing lesion. 2. Large colonic stool burden. COMMENTS: Consistent with the [employer]'s Incidental Findings Committee white paper (J Am David Radiol 2018): Any incidental renal lesion less than 1 cm or classified as too small to characterize, or any incidental cystic renal lesion characterized as simple-appearing, is likely benign. No follow-up imaging is recommended for these lesions per consensus recommendations based on imaging criteria. ADDENDUM: 07/26/24 1844 Sacral ulceration, with subcutaneous gas and fluid tracking to the level of the coccyx. No discrete osseous erosion, although fluid reaching the coccyx raises suspicion for possible osteomyelitis. Findings discussed on separately ordered CT of the lumbar spine. Lumbar Spine CT 07/26/24 17:53 IMPRESSION: 1. Lumbosacral fusion spanning L2-S2, with multilevel interbody disc spacers, anterior fusion of L2-L3 and pelvic/sacroiliac fixation. Associated chronic postoperative changes. No acute findings. No acute fracture or organized fluid collection. 2. Sacral ulceration, with subcutaneous gas and fluid tracking to the level of the coccyx. No discrete osseous erosion, although fluid reaching the coccyx raises suspicion for possible osteomyelitis. 3. CT of the abdomen/pelvis is reported separately. Head CT 07/26/24 18:04 IMPRESSION: No acute intracranial findings. Venous Duplex 07/27/24 15:08 IMPRESSION: No evidence of deep vein thrombosis. Pelvis MRI 07/27/24 15:16 IMPRESSION: 1. Findings consistent with osteomyelitis in the S5 segment of the sacrum. 2. Sacral decubitus ulcer. 3. Subcutaneous soft tissue edema/cellulitis in the lower abdominal wall, bilateral groins, bilateral buttock, and right hip regions. 4. Myositis/edema in the right gluteus felipe muscle. Chest X-Ray 07/31/24 11:52 IMPRESSION: Properly positioned right arm PICC line as above. Catheter tip position was discussed with the x-ray technologist at 12:35 p.m. Laboratory Results WBC 6.39 10^3/uL (3.29-11.43) 08/02/24 05:31 RBC 3.62 10^6/uL (3.85-5.65) L 08/02/24 05:31 Hgb 10.30 g/dL (11.27-16.99) L 08/02/24 05:31 Hct 31.5 % (36-47) L 08/02/24 05:31 MCV 87.0 fl (85-98) 08/02/24 05:31 MCH 28.5 pg (27-33) 08/02/24 05:31 MCHC 32.7 g/dL (30-55) D 08/02/24 05:31 RDW 13.6 % (12.1-15.1) 08/02/24 05:31 Plt Count 239 10^3/cmm (157-399) 08/02/24 05:31 MPV 9.9 fL (7.4-10.4) 08/02/24 05:31 Neut % (Auto) 69.2 % 08/02/24 05:31 Lymph % (Auto) 23.3 % 08/02/24 05:31 Steele % (Auto) 7.0 % 08/02/24 05:31 Eos % (Auto) 0.3 % 08/02/24 05:31 Baso % (Auto) 0.0 % 08/02/24 05:31 Neut # (Auto) 4.42 10^3/uL (1.8-7.7) 08/02/24 05:31 Lymph # (Auto) 1.5 10^3/uL (0.8-4.8) 08/02/24 05:31 Steele # (Auto) 0.5 10^3/uL (0.2-0.9) 08/02/24 05:31 Eos # (Auto) 0.0 10^3/uL (0.0-0.8) 08/02/24 05:31 Baso # (Auto) 0.0 10^3/uL (0.0-0.1) 08/02/24 05:31 Nucleated RBC % (auto) 0 % 08/02/24 05:31 Nucleated RBCs # 0.0 /100WBC 08/02/24 05:31 ESR 35 mm/hr (0-15) H 07/26/24 15:13 D-Dimer 3.30 ug/mLFEU (0-0.59) H 07/26/24 20:37 Sodium 139 mmol/L (136-145) 08/02/24 05:31 Potassium 3.5 mmol/L (3.5-5.1) 08/02/24 05:31 Chloride 107 mmol/L (98-107) 08/02/24 05:31 Carbon Dioxide 24 mmol/L (22-29) 08/02/24 05:31 Anion Gap 11.5 (5-19) 08/02/24 05:31 BUN 7 mg/dL (6-20) 08/02/24 05:31 Creatinine 0.6 mg/dL (0.5-0.9) 08/02/24 05:31 GFR Calculation 103.0 mL/min (90-130) 08/02/24 05:31 Glucose 95 mg/dL (65-115) 08/02/24 05:31 POC Glucose 98 mg/dL (70-110) 08/02/24 06:45 Estimat Average Glucose 108 07/26/24 20:37 Hemoglobin A1c 5.4 % (4.0-6.0) 07/26/24 20:37 Calculated Osmolality 286 mOsm/kg (285-295) 08/02/24 05:31 Lactic Acid 1.1 mmol/L (0.5-2.2) 07/26/24 15:13 Calcium 8.0 mg/dL (8.5-10.5) L 08/02/24 05:31 Phosphorus 2.5 mg/dL (2.5-4.5) 08/02/24 05:31 Magnesium 2.1 mg/dL (1.7-2.3) 08/02/24 05:31 Ferritin 736 ng/mL (15-150) H 07/26/24 20:37 Total Bilirubin 0.4 mg/dL (0.15-1.2) 08/02/24 05:31 AST 20 U/L (0-32) 08/02/24 05:31 ALT 10 U/L (0-33) 08/02/24 05:31 Alkaline Phosphatase 75 U/L (35-105) 08/02/24 05:31 Creatine Kinase 394 U/L (26-192) H* 07/27/24 02:45 Troponin T Baseline 43 ng/L (0-10) H 07/26/24 20:37 Troponin T 120 Minute 25.72 ng/L (0-10) H 07/26/24 23:53 Delta Troponin T -17.28 ABS# (0-10) L 07/26/24 23:53 Troponin T Hi Sens 6Hr 23.35 ng/L (0-10) H 07/27/24 02:45 Troponin T Hi Sens 6Hr Delta -19.65 ng/L (0-12) L 07/27/24 02:45 C-Reactive Protein 6.9 mg/L (0.0-4.9) H 07/26/24 15:13 Total Protein 5.1 g/dL (6.6-8.7) L 08/02/24 05:31 Albumin 3.1 g/dL (3.5-5.2) L 08/02/24 05:31 Globulin 2.0 g/dL (1.3-4.6) 08/02/24 05:31 Triglycerides 126 mg/dL (0-150) 07/26/24 20:37 Cholesterol 176 mg/dL (0-200) 07/26/24 20:37 LDL Cholesterol, Calc 97 mg/dL (50-129) 07/26/24 20:37 HDL Cholesterol 54 mg/dL (60-100) L 07/26/24 20:37 LDL/HDL Ratio 1.80 RATIO (0.00-3.22) 07/26/24 20:37 Cholesterol/HDL Ratio 3.26 mg/dL (0.0-4.40) 07/26/24 20:37 Lipase 9 U/L (13-60) L 07/26/24 15:13 Procalcitonin 0.05 ng/mL (0-0.5) 07/26/24 15:13 TSH 1.34 uIU/mL (0.27-4.20) 07/26/24 20:37 Free T4 0.81 ng/dL (0.82-1.77) L 07/26/24 20:37 Free T3 2.1 PG/ML (2.0-4.4) 07/26/24 20:37 Random Cortisol 16.77 ug/dL (2.47-19.5) 07/26/24 15:13 Urine Color Yellow (Yellow) 07/26/24 18:32 Urine Appearance Clear (CLEAR) 07/26/24 18: Urine pH 6.0 (5-7) 07/26/24 18:32 Ur Specific [place] 1.044 (1.005-1.030) H 07/26/24 18:32 Urine Protein Negative (Negative) 07/26/24 18: Urine Glucose (UA) Negative (Normal) 07/26/24 18: Urine Ketones Trace (Negative) 07/26/24 18: Urine Blood Negative (Negative) 07/26/24 18:32 Urine Nitrate Negative (Negative) 07/26/24 18: Urine Bilirubin Negative (Negative) 07/26/24 18: Urine Urobilinogen 1.0 mg/dL (Negative) 07/26/24 18:32 Ur Leukocyte Esterase Trace (Negative) A 07/26/24 18:32 Urine RBC Rare /hpf (0-2) 07/26/24 18:32 Urine WBC 0-4 /hpf (0-5) H 07/26/24 18:32 Ur Squamous Epith Cells 0-4 /hpf (0-5) H 07/26/24 18:32 Amorphous Sediment Not Reportable 07/26/24 18:32 Urine Bacteria 1+ /hpf (NONE) H 07/26/24 18:32 Hyaline Casts 10-15 /lpf H 07/26/24 18:32 Urine Mucus Trace /hpf 07/26/24 18:32 Salicylates < 0.3 mg/dL (3-10) L 07/26/24 15:13 Urine Opiates Screen Positive ng/mL (Negative) H 07/26/24 18:32 Acetaminophen < 5.0 ug/mL (10-30) L 07/26/24 15:13 Ur Barbiturates Screen Negative ng/mL (Negative) 07/26/24 18:32 Ur Phencyclidine Scrn Negative ng/mL (Negative) 07/26/24 18:32 Ur Amphetamines Screen Negative ng/mL (Negative) 07/26/24 18:32 U Benzodiazepines Scrn Positive ng/mL (Negative) H 07/26/24 18:32 Urine Cocaine Screen Negative ng/mL (Negative) 07/26/24 18:32 U Marijuana (THC) Screen Negative ng/mL (Negative) 07/26/24 18:32 Ethyl Alcohol < 10 mg/dL (0-10) 07/26/24 15:13 GABE IFA Animal Tis Res Negative (NEGATIVE) 07/26/24 20:37 CARLO-1 Antibody <1.0 neg AI (<1.0 NEG) 07/26/24 20:37 SS-A Antibody <1.0 neg AI (<1.0 NEG) 07/26/24 20:37 SS-B Antibody <1.0 neg AI (<1.0 NEG) 07/26/24 20:37 Sm (Laws) Antibody <1.0 neg AI (<1.0 NEG) 07/26/24 20:37 BOTTLE ASSEMBLER Antibody <1.0 neg AI (<1.0 NEG) 07/26/24 20:37 Scl-70 Antibody <1.0 neg AI (<1.0 NEG) 07/26/24 20:37 Centromere B Antibody <1.0 neg AI (<1.0 NEG) 07/26/24 20:37 Complement C3c 145 mg/dL (83-193) 07/26/24 20:37 Complement C4c 41 mg/dL (15-57) 07/26/24 20:37 CH50 Classical Pathway 60 U/mL (31-60) 07/26/24 20:37 Hepatitis A IgM Ab Non-reactive (Nonreactive) 07/26/24 20:37 Hep Bs Antigen Non-reactive (Nonreactive) 07/26/24 20:37 Hep B Core IgM Ab Non-reactive (Nonreactive) 07/26/24 20:37 Hepatitis C Antibody Non-reactive (Nonreactive) 07/26/24 20:37 HIV 1&2 Ab & HIV 1 Ag Non-reactive (Non-Reactiv) 07/26/24 20:37 HIV 1&2 Antibody Non-reactive (Non-Reactiv) 07/26/24 20:37 Vitals Last Vital Signs Temp 98.3 F 08/02/24 07:14 Pulse 99 08/02/24 07:14 Resp 16 08/02/24 07:14 BP 135/91 08/02/24 07:14 Pulse Ox 97 08/02/24 07:14 O2 Del Method Room Air 08/02/24 07:14 O2 Flow Rate 3 07/28/24 10:12 Discharge Plan Discharge Patient Disposition: Xfer SNF Condition: Stable Prescriptions: New insulin lispro [Humalog U-100 Insulin] 100 unit/mL Solution See Rx Instructions .ROUTE .COMPLEX Qty: 10 0RF Rx Instructions: Inject, subcut, 3 times daily, after meals, based on sliding scale provided daptomycin 500 mg recon soln 500 mg IV Q24H 38 Days Rx Instructions: administer over 30 mins Continued ascorbic acid (vitamin C) [Vitamin C With Tiffany Hips] 1,000 mg tablet 500 mg PO DAILY Primatene Mist 0.125 mg/actuation HFA aerosol inhaler 2 puff inhalation BID PRN (Reason: Allergy Symptoms) Rx Instructions: may repeat once after 1 minute ipratropium-albuterol 0.5 mg-3 mg(2.5 mg base)/3 mL solution for nebulization See Rx Instructions .ROUTE .COMPLEX Qty: 360 5RF Dose Instruction: Inhale 1 vial via nebulizer every 6 hours Rx Instructions: Inhale 1 vial via nebulizer every 6 hours as needed. duloxetine 60 mg capsule,delayed release(DR/EC) 60 mg PO DAILY Qty: 90 2RF levothyroxine [Synthroid] 50 mcg tablet 50 mcg PO DAILY Qty: 90 2RF montelukast 10 mg tablet 10 mg PO DAILY Qty: 90 2RF Movantik 25 mg tablet 25 mg PO QAM Qty: 90 1RF Rx Instructions: must be taken on empty stomach; no food 1 hr after or 2-3 hrs before dose atorvastatin 40 mg tablet 40 mg PO DAILY Qty: 90 2RF albuterol sulfate 2.5 mg /3 mL (0.083 %) solution for nebulization See Rx Instructions .ROUTE .COMPLEX Qty: 180 6RF Dose Instruction: Inhale 1 vial via nebulizer four times a day Rx Instructions: Inhale 1 vial via nebulizer four times a day as needed Breztri Aerosphere 160-9-4.8 mcg/actuation HFA aerosol inhaler 2 inh inhalation BID Qty: 10.7 3RF fluticasone propionate 50 mcg/actuation spray,suspension 1 spray intranasal DAILY Qty: 16 6RF Rx Instructions: administer into each nostril azelastine 0.05 % drops 1 drp ophthalmic (eye) BID Qty: 6 3RF Rx Instructions: Instill 1 drop into both eyes twice day Linzess 145 mcg capsule 145 mcg PO DAILY Qty: 90 1RF Rx Instructions: Take 1 capsule by mouth 30 minutes before breakfast albuterol sulfate 90 mcg/actuation HFA aerosol inhaler 1 puff INHALATION Q6H PRN (Reason: Shortness Of Breath) Qty: 8.5 2RF Nurtec ODT 75 mg tablet,disintegrating See Rx Instructions .ROUTE .COMPLEX Qty: 14 4RF Dose Instruction: Dissolve 1 tablet by mouth once daily as needed for migraine headache. Rx Instructions: Dissolve 1 tablet by mouth once daily as needed for migraine headache. estradiol 1 mg tablet 1 mg PO DAILY hydrocortisone 10 mg tablet 10 mg PO TID Rx Instructions: Take 1 tablet by mouth 3 times a day fenofibrate 54 mg tablet 54 mg PO DAILY Rx Instructions: Take 1 tablet by mouth daily esomeprazole magnesium 40 mg capsule,delayed release(DR/EC) 40 mg PO DAILY Changed gabapentin 600 mg tablet 300 mg PO TID Qty: 270 2RF midodrine 5 mg tablet 2.5 mg PO TID 30 Days Qty: 60 0RF amitriptyline 50 mg tablet 25 mg PO DAILY Qty: 90 2RF trazodone 100 mg tablet 50 mg PO .qhs 30 Days Qty: 30 6RF promethazine 50 mg tablet 50 mg PO BID PRN (Reason: nausea) Qty: 30 0RF zolpidem 10 mg tablet 5 mg PO .qhs Qty: 30 3RF morphine 15 mg tablet 15 mg PO Q8H PRN (Reason: Pain) 7 Days Qty: 30 0RF topiramate 100 mg tablet 50 mg PO BID Qty: 180 2RF diazepam 5 mg tablet 2.5 mg PO BID PRN (Reason: muscle spasm) 30 Days Qty: 90 0RF Held Botox 100 unit recon soln 155 unit IM .Q28 days Qty: 2 3RF Hold Instructions: Resume on 09/25/24. Discontinued insulin lispro [Humalog KwikPen Insulin] 100 unit/mL insulin pen 10 unit SUBCUT TID Qty: 15 1RF Rx Instructions: PER SLIDING SCALE Ozempic 2 mg/dose (8 mg/3 mL) pen injector See Rx Instructions .ROUTE .COMPLEX Qty: 6 5RF Dose Instruction: INJECT SUBCUTANEOUSLY 2 MG EVERY WEEK Rx Instructions: INJECT SUBCUTANEOUSLY 2 MG EVERY WEEK ON FRIDAYS furosemide 20 mg tablet 20 mg PO DAILY Qty: 90 2RF naproxen 375 mg tablet 375 mg PO BID PRN (Reason: pain) Qty: 180 1RF venlafaxine 75 mg capsule,extended release 24hr 75 mg PO QAM 90 Days Qty: 90 3RF spironolactone 25 mg tablet 25 mg PO DAILY PRN (Reason: Edema) Qty: 90 1RF nadolol 40 mg tablet 40 mg PO DAILY PRN (Reason: Hypertension) No Action (DME) Rollinator See Rx Instructions .Route .MEDSUPPLY Qty: 1 0RF Rx Instructions: As directed (DME) Bedside commode See Rx Instructions .Route .MEDSUPPLY Qty: 1 0RF Rx Instructions: As directed (DME) Oxygen-home See Rx Instructions .Route .MEDSUPPLY Qty: 1 0RF Rx Instructions: 2L of oxygen per [place] continuous (DME) Bath mat See Rx Instructions .Route .MEDSUPPLY Qty: 1 0RF Rx Instructions: As directed (DME) Shower rails See Rx Instructions .Route .MEDSUPPLY Qty: 1 0RF Rx Instructions: As directed (DME) Shower chair See Rx Instructions .Route .MEDSUPPLY Qty: 1 0RF Rx Instructions: As directed (DME) pen needle, diabetic [TRUEplus Pen Needle] 32 gauge x 5/32 needle See Rx Instructions .ROUTE .COMPLEX Qty: 300 1RF Dose Instruction: Use subcutaneously to inject novolog 3 times a day Rx Instructions: Use subcutaneously to inject novolog 3 times a day (DME) Infinity Test strips Strip See Rx Instructions .ROUTE .MEDSUPPLY Qty: 450 0RF Rx Instructions: As directed (DME) blood-glucose meter [Infinity Meter Kit] Kit See Rx Instructions .Route Qty: 1 0RF Rx Instructions: As directed (DME) lancets [Safety Lancets] 28 gauge misc See Rx Instructions .ROUTE .MEDSUPPLY Qty: 100 0RF Rx Instructions: As directed (DME) pen needle, diabetic [BD Ultra-Fine Micro Pen Needle] 32 gauge x 1/4 needle See Rx Instructions .ROUTE .MEDSUPPLY Qty: 450 3RF Rx Instructions: 5 times daily (DME) blood-glucose meter [Accu-Chek Guide Glucose Meter] Misc See Rx Instructions .ROUTE .COMPLEX Qty: 1 0RF Dose Instruction: USE DIRECTED Rx Instructions: USE DIRECTED (DME) FreeStyle Hilda 3 [place] Misc See Rx Instructions .ROUTE .COMPLEX Qty: 1 0RF Dose Instruction: USE DIRECTED Rx Instructions: USE DIRECTED (DME) Accu-Chek Guide test strips Strip See Rx Instructions .ROUTE .COMPLEX Qty: 100 0RF Dose Instruction: USE DIRECTED 4 TIMES DAILY Rx Instructions: USE DIRECTED 4 TIMES DAILY (DME) FreeStyle Hilda 3 Sensor Device See Rx Instructions .ROUTE .COMPLEX Qty: 6 0RF Dose Instruction: CHANGE SENSOR EVERY 14 DAYS Rx Instructions: CHANGE SENSOR EVERY 14 DAYS (DME) lancets [Accu-Chek Softclix Lancets] Misc See Rx Instructions .ROUTE .COMPLEX Qty: 400 3RF Dose Instruction: USE DIRECTED 4 TIMES A DAY Rx Instructions: USE DIRECTED 4 TIMES A DAY Discharge Orders: Discharge Order (Routine); Ordered 08/02/24 Ordered By: Praful Lai Referrals: [facility] [Outside] Reg Luna MD [Physician] - 08/09/24 1:35 pm () Neda Hurt FNP [Primary Care Provider] - Sandra Gutierrez MD [Hospitalist] - 1 month (We have notified your physician's clinic of the need for a follow-up appointment to be scheduled. If you have not heard from them within the next 2 business days, please call them directly. ) Cathy Easton MD [Physician] - 08/31/24 11:15 am () Discharge Diet: Cardiac and GI Soft Discharge Activity: Resume usual activity Patient Instructions: Daptomycin (By injection), Acute Wound Care (DC), Opioid Safety, Post Anesthesia Care Activity Restrictions/Additional Instructions: - Wound care -Daptomycin 500 mg IV every 24 hours for 38 remaining days -Check weekly CBCs, CMP, CPK -Follow-up with Dr. Gutierrez in 2 weeks -Follow-up with Dr. Turpin in 2 weeks -Up out of bed, repositioning q hourly -Please use morphine sparingly for pain -Please use diazepam sparingly for muscle spasms -Protein shakes twice daily, GI soft diet -Follow-up with Dr. Easton for diabetic gastroparesis Discharge Attestations Time Spent in Discharge Care*: greater than 30 min Quality Metrics Clinical Quality Measures [ No reported AMI, CVA or VTE this stay] Coding Level of Care Code 90879 Total time (in minutes) for Discharge: 45 Diagnoses Deep tissue injury T14.8XXA Type 1 diabetes E10.9 Adrenal insufficiency E27.40 Hypothyroid E03.9 Decubitus ulcer, lower back L89.109 Heel ulceration L97.409 Decubitus ulcer L89.90 Multiple falls R29.6 Cellulitis L03.90 Low body mass index (BMI) Severe protein-calorie malnutrition E43 Physical deconditioning R53.81 Muscle wasting M62.50 Hypotension I95.9 Adult failure to thrive R62.7 Acute osteomyelitis of coccyx M46.28 Infection with methicillin-resistant Staphylococcus aureus (MRSA) A49.02 Refeeding syndrome E87.8 Altered mental status R41.82
--- NOTE | 2024-08-02 10:08 | PC.SOCIAL ---
IMM Update pg 2 of IMM Updated and reviewed w/ patient. Copy provided and copy dated, initialed and placed in chart.
--- NOTE | 2024-08-02 10:25 | PC.NURSE ---
Report called to KATTY Franklin at [facility]. All questions answered at this time.
[2024-08-02] MEDS: DAPTOmycin 500 MG in sodium chloride 0.9% (100 ml) 100 ML 100 MG IV (10:34)
[2024-08-02 10:51] LABS: SARS Covid-2 Antigen negative (Negative)
--- NOTE | 2024-08-02 11:19 | PC.OT ---
OT TREATMENT HELD DUE TO SCHEDULED PATIENT D/C
[2024-08-02 11:28] LABS: Glucose Point of Care 144 mg/dL (70-110)
[2024-08-02 11:41] VITALS: BP 142/94; PULSE 81; RESP 16; TEMP 36.4; O2SAT 98
[2024-08-02] MEDS: insulin lispro 100 unit/1 mL SUBCUT (11:48)
--- NOTE | 2024-08-02 11:58 | PC.NURSE ---
Pyxis medications inside of the discharge packet that will be sent to correction. Verified with Michael Valiente RN.
[2024-08-02 12:37] VITALS: BP 142/94; PULSE 81; RESP 16; TEMP 36.4; O2SAT 97
[2024-08-03 08:14] LABS: THYROID PEROXIDASE ANTIBODIES 6 IU/mL (<9)
[2024-08-09 00:49] LABS: DNA AB (DS) CRITHIDIA,IFA NEGATIVE (NEGATIVE)
== END 2024-08-02 12:39 | disposition skilled nursing facility (03) | DRG 622 ==
LOC: ER 17:12 → MEDSURG 19:13
PROVIDERS: Surgery; Admitting Provider Family Medicine; Emergency Provider Family Medicine; PCP Nurse Practitioner; Visit Provider Family Medicine
PROC: 0JB70ZZ Excision of Back Subcutaneous Tissue and Fascia, Open Approach (ICD-10-PCS; principal; 2024-07-28 08:15)
DX: E10.69 Type 1 diabetes mellitus with other specified complication (principal); E43 Unspecified severe protein-calorie malnutrition; L89.154 Pressure ulcer of sacral region, stage 4; M46.28 Osteomyelitis of vertebra, sacral and sacrococcygeal region; E27.1 Primary adrenocortical insufficiency; L03.312 Cellulitis of back [any part except buttock and flank]; Z68.1 Body mass index [BMI] 19.9 or less, adult; K76.6 Portal hypertension; L89.892 Pressure ulcer of other site, stage 2; L89.819 Pressure ulcer of head, unspecified stage; E03.9 Hypothyroidism, unspecified; Z91.81 History of falling; R29.6 Repeated falls; I95.9 Hypotension, unspecified; B95.62 Methicillin resistant Staphylococcus aureus infection as the cause of diseases classified elsewhere; E87.8 Other disorders of electrolyte and fluid balance, not elsewhere classified; R41.82 Altered mental status, unspecified; F32.A Depression, unspecified; J45.909 Unspecified asthma, uncomplicated; Z74.01 Bed confinement status; Z99.81 Dependence on supplemental oxygen; Z98.1 Arthrodesis status; Z79.85 Long-term (current) use of injectable non-insulin antidiabetic drugs
CPT/HCPCS: 36415; 36416; 36573; 36592; 51702; 70450; 71045; 72195; 74177; 80053; 80061; 80074; 80306; 80307; 81001; 82533; 82550; 82728; 82962; 83036; 83605; 83690; 83735; 84100; 84145; 84439; 84443; 84481; 84484; 85025; 85378; 85651; 86140; 86160; 86162; 86235; 86255; 86376; 87040; 87070; 87075; 87077; 87176; 87186; 87205; 87426; 87806; 93005; 93970; 96365; 96372; 96375; 97116; 97162; 97167; 97530; 97535; 99285; J0330; J0878; J1650; J1720; J1815; J2020; J2270; J2405; J2470; J2543; J2704; J2765; J3010; J3475; J3490; J7030; J7042; J8499; Q0162

== ENCOUNTER 2024-09-04 11:24 | Emergency (ER) | payer MEDICARE, MEDICAID, SELFPAY ==
[2024-09-04] VITALS (7 sets, daily range): BP systolic 107–125; BP diastolic 60–80; PULSE 71–99; RESP 14–18; TEMP 36.6; O2SAT 96–99; BMI 16.9
--- NOTE | 2024-09-04 11:34 | CT_ITS ---
WS: [id number] CT ABDOMEN AND PELVIS WITH CONTRAST HISTORY: abd pain, RIGHT flank pain for 4 days, hematuria. TECHNIQUE: Imaging performed of the abdomen and pelvis with IV contrast. Single phase imaging of the abdomen. Coronal and sagittal reformats are submitted. All CT scans at [facility] use at [address] [facility] one of these dose optimization techniques: automated exposure control; mA and/or kV adjustment per patient size (includes targeted exams where dose is matched to clinical indication); or iterative re construction. IV CONTRAST: Omnipaque 350; 100 mL IV. Oral contrast: No DLP: 365.36 mGy.cm COMPARISON: 07/26/2024 Lower thorax: Bilateral breast implants. Lung bases are clear. No pneumonia. Heart is normal size. No hiatal hernia. Liver/biliary system: Normal size liver. Mild central hepatobiliary duct dilatation similar to the pr ior study and probably related to cholecystectomy. Gallbladder: Prior cholecystectomy. Pancreas: Normal size pancreas and pancreatic duct. No adjacent inflammation. Spleen: Normal size spleen. No mass or infarct. Adrenal glands: Normal. Right kidney: No obstruction. No perinephric stranding or delayed enhancement. The ureters partially secured by artifact from spine hardware but no dilatation or stone identified. Left kidney: No renal obstruction. Nonobstructing calcifications in the central renal pelvis. There a re few small cysts. Aorta: Mild atherosclerosis with no aneurysm. Partially obscured mesenteric arteries by artifact. Lymphadenopathy: None. Free fluid: None. GI tract: Marked distended stomach with fluid, air and food products. Prominent small bowel but no ob structive pattern. There is increased fluid in the distal small bowel. Marked constipation. Cecum is markedly dilated measuring 6 cm in transverse diameter. No evidence for appendicitis. Abdominal wall: Unremarkable abdominal wall. No hernia. Pelvis: No free fluid or adenopathy within the pelvis. Bones: Extensive bilateral lumbosacral fusion hardware. Diffuse soft tissue anasarca. CT/CT abdomen pelvis w con* [id number] IMPRESSION: 1. No renal obstruction or ureteral calcification identified. Ureters have bee n partially obscured by beam hardening artifact from spine hardware. 2. Price catheter is present in a nondistended bladder. 3. There is marked fecal retention and constipation greatest in the RIGHT colo n. Mild increased amount of fluid in the distal small bowel. 4. No free air. 5. Prior cholecystectomy. 6. Bilateral breast implants.
--- NOTE | 2024-09-04 11:35 | W.ED.ABDPA2 ---
HPI - Abdominal Pain General: Chief Complaint: Abdominal Pain Stated Complaint: right flank pain Time Seen by Provider: 09/04/24 11:28 Source: patient and EMS Mode of arrival: EMS Limitations: no limitations History of Present Illness: 59-year-old female with history of back surgery back in January she got a lower wound to her back which she states she is currently not antibiotics that she is at a custodial currently she also has a Patterson she states she has been having abdominal pain feels like she may have a UTI states the pain is diffuse in her abdomen rates it a 7 out of 10 denies any fever denies any vomiting. Associated Symptoms: Reports dysuria; Denies chills, diarrhea, fever(s), nausea and vomiting Related Data Home Medications Medication Instructions Recorded Confirmed ascorbic acid (vitamin C) 1,000 mg 500 mg PO DAILY 07/20/23 08/31/24 tablet (Vitamin C With Tiffany Hips) epinephrine 0.125 mg/actuation 2 puff inhalation BID PRN Allergy 07/20/23 08/31/24 aerosol inhaler (Primatene Mist) Symptoms estradiol 1 mg tablet 1 mg PO DAILY 02/22/24 08/31/24 fenofibrate 54 mg tablet 54 mg PO DAILY 02/22/24 08/31/24 hydrocortisone 10 mg tablet 10 mg PO TID 02/22/24 08/31/24 esomeprazole magnesium 40 mg 40 mg PO DAILY 02/24/24 08/31/24 capsule,delayed release Previous Rx's Medication Instructions Recorded Oxygen-home #1 ea 08/23/23 Bedside commode #1 ea 10/25/23 Rollinator #1 ea 10/25/23 Bath mat #1 ea 11/03/23 Shower rails #1 ea 11/03/23 Shower chair #1 ea 11/11/23 pen needle, diabetic 32 gauge x #300 ea 11/16/23 (TRUEplus Pen Needle) ipratropium 0.5 mg-albuterol 3 mg See Rx Instructions .Route 11/19/23 (2.5 mg base)/3 mL nebulization .COMPLEX #360 mL soln blood sugar diagnostic (Infinity #450 ea 11/23/23 Test strips) blood-glucose meter (Infinity #1 ea 12/03/23 Meter Kit) lancets 28 gauge (Safety Lancets) #100 ea 12/03/23 pen needle, diabetic 32 gauge x #450 ea 12/27/2309/30 (BD Ultra-Fine Micro Pen Needle) duloxetine 60 mg capsule,delayed 60 mg PO DAILY #90 caps 01/07/24 release levothyroxine 50 mcg tablet 50 mcg PO DAILY #90 tabs 01/07/24 (Synthroid) montelukast 10 mg tablet 10 mg PO DAILY #90 tabs 01/07/24 naloxegol 25 mg tablet (Movantik) 25 mg PO QAM #90 tabs 01/07/24 atorvastatin 40 mg tablet 40 mg PO DAILY #90 tabs 01/13/24 albuterol sulfate 2.5 mg/3 mL See Rx Instructions .Route 03/25/24 (0.083 %) solution for nebulization .COMPLEX #180 mL budesonide 160 mcg-glycopyr 9 2 inh inhalation BID #10.7 grams 03/27/24 mcg-formot 4.8 mcg/actuation HFA inhaler (Breztri Aerosphere) blood sugar diagnostic (Accu-Chek #100 strips 03/31/24 Guide test strips) blood-glucose meter (Accu-Chek #1 ea 03/31/24 Guide Glucose Meter) blood-glucose meter,continuous #1 ea 03/31/24 (FreeStyle Hilda 3 Lincoln) fluticasone propionate 50 1 spray intranasal DAILY #16 grams 03/31/24 mcg/actuation nasal spray,suspension onabotulinumtoxinA 100 unit 155 unit IM .Q28 days #2 ea 04/12/24 solution for injection (Botox) albuterol sulfate 90 mcg/actuation 1 puff inhalation Q6H PRN 04/15/24 aerosol inhaler Shortness Of Breath #8.5 grams azelastine 0.05 % eye drops 1 drp ophthalmic (eye) BID #6 mL 04/15/24 linaclotide 145 mcg capsule 145 mcg PO DAILY #90 caps 04/15/24 (Linzess) blood-glucose sensor (FreeStyle #6 ea 04/19/24 Hilda 3 Sensor device) lancets (Accu-Chek Softclix #400 ea 06/17/24 Lancets) rimegepant 75 mg disintegrating See Rx Instructions .Route 06/30/24 tablet (Nurtec ODT) .COMPLEX #14 tabs amitriptyline 50 mg tablet 25 mg (1/2 x 50 mg) PO DAILY #90 08/02/24 tabs daptomycin 500 mg intravenous 500 mg IV Q24H 38 days 08/02/24 solution diazepam 5 mg tablet 2.5 mg (1/2 x 5 mg) PO BID PRN 08/02/24 muscle spasm 30 days #90 tabs gabapentin 600 mg tablet 300 mg (1/2 x 600 mg) PO TID #270 08/02/24 tabs insulin lispro 100 unit/mL See Rx Instructions .Route 08/02/24 subcutaneous solution (Humalog .COMPLEX #10 mL U-100 Insulin) midodrine 5 mg tablet 2.5 mg (1/2 x 5 mg) PO TID 30 days 08/02/24 #60 tabs morphine 15 mg immediate release 15 mg PO Q8H PRN Pain 7 days #30 08/02/24 tablet tabs topiramate 100 mg tablet 50 mg (1/2 x 100 mg) PO BID #180 08/02/24 tabs trazodone 100 mg tablet 50 mg (1/2 x 100 mg) PO .qhs 30 08/02/24 days #30 tabs zolpidem 10 mg tablet 5 mg (1/2 x 10 mg) PO .qhs 08/02/24 insomnia #30 tabs promethazine 50 mg tablet See Rx Instructions .Route 08/14/24 .COMPLEX #60 tabs Allergies Allergy/AdvReac Type Severity Reaction Status Date / Time No Known Allergies Allergy Verified 08/31/24 07:38 Review of Systems Const: Denies: fever(s), chills, body aches or change in appetite ENMT: Denies: throat pain or dental pain Card: Denies: chest pain Resp: Denies: dyspnea GI: Reports: abdominal pain; Denies: nausea, vomiting or diarrhea : Reports: dysuria Musc: Denies: neck pain or back pain Skin/Breast: Denies: rash Neuro: Denies: headache(s) PFSH ED PFSH: Medical History Multiple falls [place]'s disease Hypertension, portal Psychiatric care Surgical History History of fusion of lumbar spine History of laminectomy In right HIP History of hip surgery Right hip History of mastectomy BILATERAL History of total adrenalectomy History of cholecystectomy History of hysterectomy Family History Mother Cancer BREAST Father Cancer LUNG Grandmother Cancer MATERNAL- BREAST Family/Other Cancer Grandfather Cancer PATERNAL- LUNG Sister Cancer BREAST Denies family history of Clotting disorder Heart disease Chronic kidney disease (CKD) Bleeding disorder Thyroid disease Stroke Social History Smoking and tobacco/nicotine status: unknown if used tobacco/nicotine Alcohol intake: never Female Reproductive History: Para: 4 Physical Exam Const: COMMON NORMALS: patient oriented x3 HENMT: COMMON NORMALS: normocephalic and atraumatic HEAD & SCALP: normocephalic and atraumatic Eye: COMMON NORMALS: Equal, round and reactive pupils present and EOMs intact bilaterally PUPIL: Yes Equal, round and reactive pupils present Neck/C-Spine: COMMON NORMALS: full ROM and supple Chest: COMMONS NORMALS: normal inspection of the chest Resp: COMMON NORMALS: normal respiratory effort, No retractions, No use of accessory muscles and clear to auscultation bilaterally AUSCULTATION: clear to auscultation bilaterally Cardio: COMMON NORMALS: regular rate, regular rhythm and No murmurs present (Cardio) RATE: regular rate RHYTHM: regular rhythm GI: COMMON NORMALS: Normal to inspection, nondistended, normoactive bowel sounds present, Soft to palpation, non-tender and no masses PALPATION: Yes Soft to palpation : OTHER: patterson in place Extremity: COMMON NORMALS: normal to inspection and full ROM Neuro: COMMON NORMALS: patient oriented x3, moves all extremities and no focal motor deficits Psych: COMMON NORMALS: mental status grossly normal, Normal thought process present and cooperative THOUGHT PROCESS: Normal thought process present Skin: COMMON NORMALS: no rashes or lesions noted and no wounds GENERAL SKIN EXAM: no rashes or lesions noted Course Vital Signs: Vital signs: Vital Signs Temperature 97.9 F 09/04/24 11:25 Pulse Rate 73 09/04/24 13:30 Respiratory Rate 16 09/04/24 12:03 Blood Pressure 114/60 09/04/24 13:30 Pulse Oximetry 96 09/04/24 13:30 Oxygen Delivery Me thod Room Air 09/04/24 13:30 MDM - Abdominal Pain Medical Decision Making Patient presents here with abdominal pain concern for UTI her urine here was negative blood works normal CT showed no acute abnormality she is stable for discharge is to follow-up with PCP. Medical Records I reviewed the patient's medical records. Lab Data I reviewed the patient's lab results. 09/04/24 12:00 09/04/24 12:00 Labs/Radiology: Radiology Impressions Abdomen/Pelvis CT 09/04/24 11:34 IMPRESSION: 1. No renal obstruction or ureteral calcification identified. Ureters have been partially obscured by beam hardening artifact from spine hardware. 2. Patterson catheter is present in a nondistended bladder. 3. There is marked fecal retention and constipation greatest in the RIGHT colon. Mild increased amount of fluid in the distal small bowel. 4. No free air. 5. Prior cholecystectomy. 6. Bilateral breast implants. Laboratory Results WBC 9.63 10^3/uL (3.29-11.43) 09/04/24 12:00 RBC 2.79 10^6/uL (3.85-5.65) L 09/04/24 12:00 Hgb 8.50 g/dL (11.27-16.99) L 09/04/24 12:00 Hct 27.6 % (36-47) L 09/04/24 12:00 MCV 98.9 fl (85-98) H 09/04/24 12:00 MCH 30.5 pg (27-33) 09/04/24 12:00 MCHC 30.8 g/dL (30-55) 09/04/24 12:00 RDW 18.5 % (12.1-15.1) H 09/04/24 12:00 Plt Count 361 10^3/cmm (157-399) 09/04/24 12:00 MPV 9.0 fL (7.4-10.4) 09/04/24 12:00 Neut % (Auto) 64.8 % 09/04/24 12:00 Lymph % (Auto) 18.4 % 09/04/24 12:00 Converse % (Auto) 8.3 % 09/04/24 12:00 Eos % (Auto) 7.3 % 09/04/24 12:00 Baso % (Auto) 0.3 % 09/04/24 12:00 Neut # (Auto) 6.24 10^3/uL (1.8-7.7) 09/04/24 12:00 Lymph # (Auto) 1.8 10^3/uL (0.8-4.8) 09/04/24 12:00 [place]verse # (Auto) 0.8 10^3/uL (0.2-0.9) 09/04/24 12:00 Eos # (Auto) 0.7 10^3/uL (0.0-0.8) 09/04/24 12:00 Baso # (Auto) 0.0 10^3/uL (0.0-0.1) 09/04/24 12:00 Nucleated RBC % (auto) 0 % 09/04/24 12:00 Nucleated RBCs # 0.0 /100WBC 09/04/24 12:00 Sodium 143 mmol/L (136-145) 09/04/24 12:00 Potassium 3.0 mmol/L (3.5-5.1) L 09/04/24 12:00 Chloride 109 mmol/L (98-107) H 09/04/24 12:00 Carbon Dioxide 25 mmol/L (22-29) 09/04/24 12:00 Anion Gap 12.0 (5-19) 09/04/24 12:00 BUN 20 mg/dL (6-20) 09/04/24 12:00 Creatinine 0.7 mg/dL (0.5-0.9) 09/04/24 12:00 GFR Calculation 86.2 mL/min (90-130) L 09/04/24 12:00 Glucose 101 mg/dL (65-115) 09/04/24 12:00 Calculated Osmolality 299 mOsm/kg (285-295) H 09/04/24 12:00 Calcium 9.0 mg/dL (8.5-10.5) 09/04/24 12:00 Total Bilirubin 0.2 mg/dL (0.15-1.2) 09/04/24 12:00 AST 15 U/L (0-32) 09/04/24 12:00 ALT 9 U/L (0-33) 09/04/24 12:00 Alkaline Phosphatase 54 U/L (35-105) 09/04/24 12:00 Total Protein 5.3 g/dL (6.6-8.7) L 09/04/24 12:00 Albumin 3.2 g/dL (3.5-5.2) L 09/04/24 12:00 Globulin 2.1 g/dL (1.3-4.6) 09/04/24 12:00 Lipase 38 U/L (13-60) 09/04/24 12:00 Urine Color Yellow (Yellow) 09/04/24 12:50 Urine Appearance Clear (CLEAR) 09/04/24 12:50 Urine pH 7.5 (5-7) 09/04/24 12:50 Ur Specific [place] 1.055 (1.005-1.030) H 09/04/24 12:50 Urine Protein 2+ (Negative) A 09/04/24 12:50 Urine Glucose (UA) Negative (Normal) 09/04/24 12:50 Urine Ketones Negative (Negative) 09/04/24 12:50 Urine Blood Non-haemolysed trace (Negative) 09/04/24 12:50 Urine Nitrate Negative (Negative) 09/04/24 12:50 Urine Bilirubin Negative (Negative) 09/04/24 12:50 Urine Urobilinogen 1.0 mg/dL (Negative) 09/04/24 12:50 Ur Leukocyte Esterase 1+ (Negative) A 09/04/24 12:50 Urine RBC 0-4 /hpf (0-2) H 09/04/24 12:50 Urine WBC 0-4 /hpf (0-5) H 09/04/24 12:50 Ur Squamous Epith Cells Rare /hpf (0-5) 09/04/24 12:50 Calcium Oxalate Crystal 15-25 /hpf H 09/04/24 12:50 Amorphous Sediment Not Reportable 09/04/24 12:50 Urine Bacteria Trace /hpf (NONE) 09/04/24 12:50 Hyaline Casts 0-4 /lpf H 09/04/24 12:50 All radiology interpretation(s) finalized by discharge Discharge Plan Discharge Patient Disposition: Home Clinical Impression: Abdominal pain, Hypokalemia Condition: Stable Prescriptions: No Action (DME) Rollinator See Rx Instructions .Route .MEDSUPPLY Qty: 1 0RF Rx Instructions: As directed (DME) Bedside commode See Rx Instructions .Route .MEDSUPPLY Qty: 1 0RF Rx Instructions: As directed ascorbic acid (vitamin C) [Vitamin C With Tiffany Hips] 1,000 mg tablet 500 mg PO DAILY Primatene Mist 0.125 mg/actuation HFA aerosol inhaler 2 puff inhalation BID PRN (Reason: Allergy Symptoms) Rx Instructions: may repeat once after 1 minute ipratropium-albuterol 0.5 mg-3 mg(2.5 mg base)/3 mL solution for nebulization See Rx Instructions .ROUTE .COMPLEX Qty: 360 5RF Dose Instruction: Inhale 1 vial via nebulizer every 6 hours Rx Instructions: Inhale 1 vial via nebulizer every 6 hours as needed. (DME) Oxygen-home See Rx Instructions .Route .MEDSUPPLY Qty: 1 0RF Rx Instructions: 2L of oxygen per [place] continuous ([facility]) Bath mat See Rx Instructions .Route .MEDSUPPLY Qty: 1 0RF Rx Instructions: As directed ([facility]) Shower rails See Rx Instructions .Route .MEDSUPPLY Qty: 1 0RF Rx Instructions: As directed ([facility]) Shower chair See Rx Instructions .Route .MEDSUPPLY Qty: 1 0RF Rx Instructions: As directed ([facility]) pen needle, diabetic [TRUEplus Pen Needle] 32 gauge x 5/32 needle See Rx Instructions .ROUTE .COMPLEX Qty: 300 1RF Dose Instruction: Use subcutaneously to inject novolog 3 times a day Rx Instructions: Use subcutaneously to inject novolog 3 times a day ([facility]) Infinity Test strips Strip See Rx Instructions .ROUTE .MEDSUPPLY Qty: 450 0RF Rx Instructions: As directed ([facility]) blood-glucose meter [Infinity Meter Kit] Kit See Rx Instructions .Route Qty: 1 0RF Rx Instructions: As directed ([facility]) lancets [Safety Lancets] 28 gauge misc See Rx Instructions .ROUTE .MEDSUPPLY Qty: 100 0RF Rx Instructions: As directed ([facility]) pen needle, diabetic [BD Ultra-Fine Micro Pen Needle] 32 gauge x 1/4 needle See Rx Instructions .ROUTE .MEDSUPPLY Qty: 450 3RF Rx Instructions: 5 times daily duloxetine 60 mg capsule,delayed release(DR/EC) 60 mg PO DAILY Qty: 90 2RF levothyroxine [Synthroid] 50 mcg tablet 50 mcg PO DAILY Qty: 90 2RF montelukast 10 mg tablet 10 mg PO DAILY Qty: 90 2RF Movantik 25 mg tablet 25 mg PO QAM Qty: 90 1RF Rx Instructions: must be taken on empty stomach; no food 1 hr after or 2-3 hrs before dose atorvastatin 40 mg tablet 40 mg PO DAILY Qty: 90 2RF albuterol sulfate 2.5 mg /3 mL (0.083 %) solution for nebulization See Rx Instructions .ROUTE .COMPLEX Qty: 180 6RF Dose Instruction: Inhale 1 vial via nebulizer four times a day Rx Instructions: Inhale 1 vial via nebulizer four times a day as needed [employer] Aerosphere 160-9-4.8 mcg/actuation HFA aerosol inhaler 2 inh inhalation BID Qty: 10.7 3RF (DME) blood-glucose meter [Accu-Chek Guide Glucose Meter] Misc See Rx Instructions .ROUTE .COMPLEX Qty: 1 0RF Dose Instruction: USE DIRECTED Rx Instructions: USE DIRECTED (DME) FreeStyle Hilda 3 [place] Misc See Rx Instructions .ROUTE .COMPLEX Qty: 1 0RF Dose Instruction: USE DIRECTED Rx Instructions: USE DIRECTED fluticasone propionate 50 mcg/actuation spray,suspension 1 spray intranasal DAILY Qty: 16 6RF Rx Instructions: administer into each nostril (DME) Accu-Chek Guide test strips Strip See Rx Instructions .ROUTE .COMPLEX Qty: 100 0RF Dose Instruction: USE DIRECTED 4 TIMES DAILY Rx Instructions: USE DIRECTED 4 TIMES DAILY Botox 100 unit recon soln 155 unit IM .Q28 days Qty: 2 3RF Hold Instructions: Resume on 09/25/24. azelastine 0.05 % drops 1 drp ophthalmic (eye) BID Qty: 6 3RF Rx Instructions: Instill 1 drop into both eyes twice day Linzess 145 mcg capsule 145 mcg PO DAILY Qty: 90 1RF Rx Instructions: Take 1 capsule by mouth 30 minutes before breakfast albuterol sulfate 90 mcg/actuation HFA aerosol inhaler 1 puff INHALATION Q6H PRN (Reason: Shortness Of Breath) Qty: 8.5 2RF (DME) FreeStyle Hilda 3 Sensor Device See Rx Instructions .ROUTE .COMPLEX Qty: 6 0RF Dose Instruction: CHANGE SENSOR EVERY 14 DAYS Rx Instructions: CHANGE SENSOR EVERY 14 DAYS (DME) lancets [Accu-Chek Softclix Lancets] [facility] See Rx Instructions .ROUTE .COMPLEX Qty: 400 3RF Dose Instruction: USE DIRECTED 4 TIMES A DAY Rx Instructions: USE DIRECTED 4 TIMES A DAY Nurtec ODT 75 mg tablet,disintegrating See Rx Instructions .ROUTE .COMPLEX Qty: 14 4RF Dose Instruction: Dissolve 1 tablet by mouth once daily as needed for migraine headache. Rx Instructions: Dissolve 1 tablet by mouth once daily as needed for migraine headache. promethazine 50 mg tablet See Rx Instructions .ROUTE .COMPLEX Qty: 60 0RF Dose Instruction: Take 1 tablet by mouth twice daily as needed for nausea and vomiting. Rx Instructions: Take 1 tablet by mouth twice daily as needed for nausea and vomiting. estradiol 1 mg tablet 1 mg PO DAILY hydrocortisone 10 mg tablet 10 mg PO TID Rx Instructions: Take 1 tablet by mouth 3 times a day fenofibrate 54 mg tablet 54 mg PO DAILY Rx Instructions: Take 1 tablet by mouth daily esomeprazole magnesium 40 mg capsule,delayed release(DR/EC) 40 mg PO DAILY insulin lispro [Humalog U-100 Insulin] 100 unit/mL Solution See Rx Instructions .ROUTE .COMPLEX Qty: 10 0RF Rx Instructions: Inject, subcut, 3 times daily, after meals, based on sliding scale provided gabapentin 600 mg tablet 300 mg PO TID Qty: 270 2RF midodrine 5 mg tablet 2.5 mg PO TID 30 Days Qty: 60 0RF amitriptyline 50 mg tablet 25 mg PO DAILY Qty: 90 2RF trazodone 100 mg tablet 50 mg PO .qhs 30 Days Qty: 30 6RF zolpidem 10 mg tablet 5 mg PO .qhs Qty: 30 3RF morphine 15 mg tablet 15 mg PO Q8H PRN (Reason: Pain) 7 Days Qty: 30 0RF topiramate 100 mg tablet 50 mg PO BID Qty: 180 2RF diazepam 5 mg tablet 2.5 mg PO BID PRN (Reason: muscle spasm) 30 Days Qty: 90 0RF daptomycin 500 mg recon soln 500 mg IV Q24H 38 Days Rx Instructions: administer over 30 mins Discharge Orders: Discharge ED (Routine); Ordered 09/04/24 Ordered By: Cristian Hermosillo Referrals: Neda Hurt FNP [Primary Care Provider] - 4-7 days Discharge Diet: Advance as tolerated Discharge Activity: Resume usual activity Patient Instructions: Abdominal Pain (ED) Coding Level of Care Code 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
[2024-09-04] MEDS: ondansetron 2 mg/ML SDV 2 mL 4 MG IVP (11:59)
[2024-09-04] MEDS: morphine 4 mg/mL SDV 1 mL IVP (12:00)
[2024-09-04 12:14] LABS: Basophils % 0.3 %; Eosinophils # 0.7 10^3/uL (0.0-0.8); Eosinophils % 7.3 %; Hematocrit 27.6 % (36-47); Lymphocytes # 1.8 10^3/uL (0.8-4.8); Lymphocytes % 18.4 %; Mean Corpuscular HGB Conc 30.8 g/dL (30-55); Mean Corpuscular Hemoglobin 30.5 pg (27-33); Mean Corpuscular Volume 98.9 fl (85-98); Monocytes # 0.8 10^3/uL (0.2-0.9); Monocytes % 8.3 %; Neutrophils # 6.24 10^3/uL (1.8-7.7); Neutrophils % 64.8 %; Nucleated Red Blood Cells % 0 %; Platelet Count 361 10^3/cmm (157-399); Red Blood Count 2.79 10^6/uL (3.85-5.65); Red Cell Distribution Width 18.5 % (12.1-15.1); White Blood Count 9.63 10^3/uL (3.29-11.43)
[2024-09-04] MEDS: iohexol 350 mg/mL 500 mL Btl (per mL) IV (12:14)
[2024-09-04 12:39] LABS: Alanine Aminotransferase 9 U/L (0-33); Albumin Level 3.2 g/dL (3.5-5.2); Alkaline Phosphatase 54 U/L (35-105); Aspartate Amino Transferase 15 U/L (0-32); Blood Urea Nitrogen 20 mg/dL (6-20); Carbon Dioxide 25 mmol/L (22-29); Chloride 109 mmol/L (98-107); Creatinine Clr Calc Pharmacy 73.0179; Globulin 2.1 g/dL (1.3-4.6); Glomerular Filtration Rate 86.2 mL/min (90-130); Glucose 101 mg/dL (65-115); Lipase 38 U/L (13-60); Osmolality Calculated 299 mOsm/kg (285-295); Sodium 143 mmol/L (136-145); Total Bilirubin 0.2 mg/dL (0.15-1.2); Total Protein 5.3 g/dL (6.6-8.7)
[2024-09-04] MEDS: lactulose oral liq 20 gm/30 mL UDC 30 GM PO (13:05)
[2024-09-04 13:15] LABS: Bilirubin Urine Negative (Negative); Blood Urine Non-haemolysed trace (Negative); Glucose Urine UA Negative (Normal); Ketones Urine Negative (Negative); Leukocyte Esterase Urine 1+ (Negative); Nitrate Urine Negative (Negative); Protein Urine 2+ (Negative); Urine Appearance Clear (CLEAR); Urine Color Yellow (Yellow); pH Urine 7.5 (5-7)
[2024-09-04 13:30] LABS: Specific Gravity, Urine 1.055 (1.005-1.030)
[2024-09-04 13:31] LABS: Add Urine Microscopic? YES; Bacteria Urine TRACE /hpf; Hyaline Casts Urine 0-4 /lpf; RBC Urine 0-4 /hpf (0-2); Squamous Epithelial Cell Urine RARE /hpf (0-5); UA Manual Slide Review YES; UA Slide Review UA Slide Review Perf; WBC Urine 0-4 /hpf (0-5)
[2024-09-04 13:32] LABS: Add Urine Culture? No; Calcium Oxalate Crystals Urine 15-25 /hpf
[2024-09-04] MEDS: potassium chloride ER 20 mEq Tablet 60 MEQ PO (13:41)
--- NOTE | 2024-09-04 15:28 | PC.NURSE ---
pt has removed VS equipment.
--- NOTE | 2024-09-04 18:28 | PC.NURSE ---
pt report called to [facility] in [place] at this time.
== END 2024-09-04 18:22 | disposition home or self-care (01) ==
PROVIDERS: Emergency Provider Emergency Medicine; PCP Nurse Practitioner
DX: R10.9 Unspecified abdominal pain (principal); E87.6 Hypokalemia
CPT/HCPCS: 74177; 80053; 81001; 83690; 85025; 96374; 96375; 99285; J2270; J2405

== ENCOUNTER → 2025-01-26 14:38 | Outpatient (BNVA) | payer MEDICARE, MEDICAID, SELFPAY | PROVIDERS: PCP Nurse Practitioner; Visit Provider Specialist | DX: G43.711 Chronic migraine without aura, intractable, with status migrainosus (principal) | CPT/HCPCS: 64615; J0585; J9999 ==

== ENCOUNTER → 2025-08-16 08:27 | Outpatient (BNVA) | payer MEDICARE, MEDICAID, SELFPAY | PROVIDERS: Visit Provider Specialist | DX: G43.711 Chronic migraine without aura, intractable, with status migrainosus (principal) | CPT/HCPCS: 64615; J0585; J9999 ==